=== PATIENT | female | born 1980 | race Caucasian/White ===

== ENCOUNTER 2017-09-19 19:31 | Emergency (ER) | payer OTHER, SELFPAY ==
[2017-09-19 19:54] VITALS: BP 117/77; PULSE 106; RESP 20; TEMP 37.7; O2SAT 99; BMI 35.6
[2017-09-19 20:02] LABS: UTC Influenza A Antigen Positive (Negative); UTC Influenza B Antigen Negative (Negative)
--- NOTE | 2017-09-19 21:05 | HMH.EDUTC ---
[facility] Dis[place] Clinical Impression: Influenza A Disposition: Home, Self-Care Condition on Discharge: Good Instructions: DI for Influenza -- Adult Additional Instructions: * Start Tamiflu today if you are going to take it. Discussed risks and possible benefits. * Lots of rest * Increase fluids, water, gatorade, powerade, pedialyte if /toddler/child * Monitor Temp. Tylenol every 4 hours as needed no more then 5 times a day or 4000mg in 24 hours and/or ibuprofen every 6 hours as needed no more then 3200mg in 24 hours (as long as your primary care doctor has told you that it is ok to take both) for fever/aches/pain. ER if fever no less than 101 despite tylenol and Ibuprofen * You (or your child) are contagious until no fever, aches, chills x 24 hours without medication for symptoms. * Coricidin HBP otc if other cold medications make your BP elevate Prescriptions: Oseltamivir Phosphate [Tamiflu 75mg Capsule] 75 mg PO BID #10 capsule Referrals: Viktor Gallego MD [Primary Care Provider] - (IMMEDIATELY for new or worsening symptoms, improvement followed by suddenly feeling worse OR no noticeable improvement over the next 48-72 hours. 911 for difficulty breathing ) Forms: Work/School Release Time of Disposition: 21:15 Medical Decision Making Vital Signs: 09/19/17 19:54 Temperature 99.9 F H Temperature Source Temporal Artery Scan Pulse Rate [Brachial] 106 H Respiratory Rate 20 Blood Pressure [Right Arm] 117/77 Blood Pressure Mean [Right Arm] 90 Blood Pressure Source [Right Arm] Automatic Cuff 02 Sat by Pulse Oximetry 99 Oxygen Delivery Method Room Air - Lab Data Lab Results 09/19/17 20:00: Influenza Type A Ag Positive A, Influenza Type B Ag Negative - Phil Inquiry Pt receiving controlled substance: No [facility] HPI - General Stated complaint: estrada,cough,body pain,fever Time Seen by Provider: 09/19/17 21:05 Mode of Arrival: Ambulatory Source of Information: Patient Limitations: No Limitations Description of Symptoms (Recalled from Triage Doc. by RN): ACHES, CHILLS, CONGESTION AND FEER HEENT Symptoms (Recalled from RN notes): Yes Resp Symptoms (Recalled from RN notes): Yes Skin Symptoms (Recalled from RN notes): No MS Symptoms (Recalled from RN notes): No Functional Status (Recalled from RN notes): NA - History of Present Illness Provider Complaint: c/o fever, aches, chills, cough, headache starting mid day yesterday and worse today. No known sick contacts. Has had flu vaccine. tylenol barely helping. hasn't taken or tried anything else. - Related Data Home Medications Medication Instructions Recorded Confirmed Estrogens, Conjugated [Premarin] 0.3 mg PO DAILY 09/19/17 09/19/17 Lisinopril [Lisinopril 10mg Tab] 10 mg PO DAILY 09/19/17 09/19/17 Lovastatin 10 mg PO DAILY 09/19/17 09/19/17 buPROPion HCl [Wellbutrin 100mg 50 mg PO BID 09/19/17 09/19/17 Tablet] Previous Rx's Medication Instructions Recorded Oseltamivir Phosphate [Tamiflu 75 mg PO BID #10 cap 09/19/17 75mg Capsule] Allergies Allergy/AdvReac Type Severity Reaction Status Date / Time No Known Allergies Allergy Verified 09/19/17 19:59 - Worker's Comp Is this a Worker's Comp case?: No [facility] History I have reviewed the patient's past medical history: Yes Medical History: Reports:: Hypertension Denies:: Chronic Obstructive Pulmonary Disease (COPD), Diabetes Mellitus Type 1, Diabetes Mellitus Type 2 Comment: depression Other Surgeries: Yes: Hysterectomy-Total - *Social History Alcohol Intake: never - Psychiatric History Expresses thoughts of harming self/others: None Suicide Plan Description: No Plan ROS Obtained: Yes Appropriate systems reviewed & no add complaints except as noted - Constitutional Reports anorexia, Reports body ache(s), Reports chills, Reports fever(s) - Eyes Denies discharge - ENT Reports nasal congestion, Reports nasal discharge, Reports post nasal drip, Reports sinus pre
--- NOTE | 2017-09-19 21:13 | ED_ITS ---
[facility] Disposition Clinical Impression: Influenza A Disposition: Home, Self-Care Condition on Discharge: Good Instructions: DI for Influenza -- Adult Additional Instructions: * Start Tamiflu today if you are going to take it. Discussed risks and possible benefits. * Lots of rest * Increase fluids, water, gatorade, powerade, pedialyte if /toddler/child * Monitor Temp. Tylenol every 4 hours as needed no more then 5 times a day or 4000mg in 24 hours and/or ibuprofen every 6 hours as needed no more then 3200mg in 24 hours (as long as your primary care doctor has told you that it is ok to take both) for fever/aches/pain. ER if fever no less than 101 despite tylenol and Ibuprofen * You (or your child) are contagious until no fever, aches, chills x 24 hours without medication for symptoms. * Coricidin HBP otc if other cold medications make your BP elevate Prescriptions: Oseltamivir Phosphate [Tamiflu 75mg Capsule] 75 mg PO BID #10 capsule Referrals: Viktor Gallego MD [Primary Care Provider] - (IMMEDIATELY for new or worsening symptoms, improvement followed by suddenly feeling worse OR no noticeable improvement over the next 48-72 hours. 911 for difficulty breathing * ) Forms: Work/School Release Time of Disposition: 21:15 Medical Decision Making Vital Signs: 09/19/17 19:54 Temperature 99.9 F H Temperature Source Temporal Artery Scan Pulse Rate [Brachial] 106 H Respiratory Rate 20 Blood Pressure [Right Arm] 117/77 Blood Pressure Mean [Right Arm] 90 Blood Pressure Source [Right Arm] Automatic Cuff 02 Sat by Pulse Oximetry 99 Oxygen Delivery Method Room Air - Lab Data Lab Results 09/19/17 20:00: Influenza Type A Ag Positive A, Influenza Type B Ag Negative - Phil Inquiry Pt receiving controlled substance: No [facility] HPI - General Stated complaint: estrada,cough,body pain,fever Time Seen by Provider: 09/19/17 21:05 Mode of Arrival: Ambulatory Source of Information: Patient Limitations: No Limitations Description of Symptoms (Recalled from Triage Doc. by RN): ACHES, CHILLS, CONGESTION AND FEER HEENT Symptoms (Recalled from RN notes): Yes Resp Symptoms (Recalled from RN notes): Yes Skin Symptoms (Recalled from RN notes): No MS Symptoms (Recalled from RN notes): No Functional Status (Recalled from RN notes): NA - History of Present Illness Provider Complaint: c/o fever, aches, chills, cough, headache starting mid day yesterday and worse today. No known sick contacts. Has had flu vaccine. tylenol barely helping. hasn't taken or tried anything else. - Related Data Home Medications Medication Instructions Recorded Confirmed Estrogens, Conjugated [Premarin] 0.3 mg PO DAILY 09/19/17 09/19/17 Lisinopril [Lisinopril 10mg Tab] 10 mg PO DAILY 09/19/17 09/19/17 Lovastatin 10 mg PO DAILY 09/19/17 09/19/17 buPROPion HCl [Wellbutrin 100mg 50 mg PO BID 09/19/17 09/19/17 Tablet] Previous Rx's Medication Instructions Recorded Oseltamivir Phosphate [Tamiflu 75 mg PO BID #10 cap 09/19/17 75mg Capsule] Allergies Allergy/AdvReac Type Severity Reaction Status Date / Time No Known Allergies Allergy Verified 09/19/17 19:59 - Worker's Comp Is this a Worker's Comp case?: No [facility] History I have reviewed the patient's past medical history: Yes Medical History: Reports:: Hypertension
== END 2017-09-19 21:17 | disposition home or self-care (01) ==
PROVIDERS: Emergency Provider Nurse Practitioner Family; Family Provider Emergency Medicine; PCP Emergency Medicine
DX: J10.1 Influenza due to other identified influenza virus with other respiratory manifestations (principal)
CPT/HCPCS: 87276; 87804; 99202

== ENCOUNTER → 2017-11-12 15:27 | Outpatient (REF) | payer OTHER, SELFPAY ==
[2017-11-12 19:29] LABS: Amphetamine/Metha Screen,Urine Negative ng/mL (<1000); Barbiturates Screen,Urine Negative ng/mL (<200); Benzodiazepines Screen,Urine Negative ng/mL (200); Cannabinoid Screen,Urine Negative ng/mL (<50); Cocaine Screen,Urine Negative ng/g (<300); Methadone Screen,Urine Negative ng/mL (<300); Opiate Screen,Urine Positive ng/mL (<300); Phencyclidine Screen,Urine Negative ng/mL (<25)
== END ==
LOC: LAB 15:27
PROVIDERS: Visit Provider Emergency Medicine
DX: Z79.899 Other long term (current) drug therapy (principal)
CPT/HCPCS: 80305

== ENCOUNTER → 2018-01-01 14:45 | Outpatient (CLI) | payer OTHER, SELFPAY ==
--- NOTE | 2018-01-01 14:48 | MR_ITS ---
MR cervical spine wo con, MR 3-d myelogram/MRCP HISTORY: Right-sided neck pain radiating into the shoulder and arm ORDERING PHYSICIAN: Viktor Gallego MD PATIENT AGE: 37 years COMPARISON: 01/21/2017 TECHNIQUE: Standard multiplanar multiecho sequences are performed without contrast. 3-D MIP and myelographic images are also rendered and reviewed FINDINGS: There is normal alignment. The craniocervical junction has an unremarkable appearance. C2-C3: Unremarkable. C3-C4: Unremarkable. C4-C5: Unremarkable. C5-C6: Minimal central disc protrusion versus prominent posterior longitudinal ligament without impingement unchanged. Minimal disc desiccation at that level. C6-C7: Degenerative disc disease with minimal bulging disc without impingement not significant change. C7-T1: Unremarkable No canal stenosis or herniated disc evident. IMPRESSION: 1. Overall no significant change from 01/21/2017. 2. Mild bulging disc with mild degenerative disc disease at C6-C7 with minimal central disc protrusion versus prominent posterior longitudinal ligament at C5-C6. 3. No disc herniation or canal stenosis
== END ==
LOC: RAD 14:46
PROVIDERS: Family Provider Emergency Medicine; PCP Emergency Medicine; Visit Provider Emergency Medicine
DX: M54.2 Cervicalgia (principal)
CPT/HCPCS: 72141; 76376

== ENCOUNTER → 2018-01-09 16:06 | Outpatient (CLI) | payer OTHER, SELFPAY ==
[2018-01-09 18:34] LABS: Amphetamine/Metha Screen,Urine Negative ng/mL (<1000); Barbiturates Screen,Urine Negative ng/mL (<200); Benzodiazepines Screen,Urine Negative ng/mL (200); Cannabinoid Screen,Urine Negative ng/mL (<50); Cocaine Screen,Urine Negative ng/g (<300); Methadone Screen,Urine Negative ng/mL (<300); Opiate Screen,Urine Negative ng/mL (<300); Phencyclidine Screen,Urine Negative ng/mL (<25)
== END ==
PROVIDERS: Visit Provider Emergency Medicine
DX: Z79.899 Other long term (current) drug therapy (principal)
CPT/HCPCS: 80305

== ENCOUNTER → 2018-02-04 10:32 | Outpatient (REF) | payer OTHER, SELFPAY ==
[2018-02-04 14:19] LABS: Basophils % 0.7 % (0.1-2.0); Eosinophils # 0.3 K/mm3 (0.0-0.4); Eosinophils % 4.8 % (0.1-12.0); Hematocrit 38.8 % (37.0-47.0); Hemoglobin 12.8 g/dL (12.2-16.2); Lymphocytes # 1.4 K/mm3 (0.7-4.5); Lymphocytes % 22.4 K/mm3 (10-50); Mean Corpuscular HGB Conc 33.1 g/dL (31.8-35.4); Mean Corpuscular Hemoglobin 28.2 pg (27.0-31.2); Mean Corpuscular Volume 85.2 fl (81-99); Monocytes # 0.3 K/mm3 (0.1-1.0); Monocytes % 4.2 % (1.7-9.3); Neutrophils # 4.3 K/mm3 (1.8-7.8); Neutrophils % 67.9 % (37.0-80.0); Platelet Count 336 K/mm3 (142-424); Red Blood Count 4.55 M/mm3 (4.20-5.40); Red Cell Distribution Width 13.4 % (11.5-17.5); White Blood Count 6.3 K/mm3 (4.8-10.8)
[2018-02-04 14:43] LABS: Alanine Aminotransferase 18 U/L (12-78); Albumin Level 3.9 gm/dL (3.4-5.0); Albumin/Globulin Ratio 1.2 (1.1-1.8); Alkaline Phosphatase 96 U/L (46-116); Aspartate Amino Transferase 13 U/L (15-37); Bilirubin,Total 0.2 mg/dL (0.2-1.0); Blood Urea Nitrogen 11 mg/dL (7-18); Calcium 9.9 mg/dL (8.5-10.1); Carbon Dioxide 27 mmol/L (21.0-32.0); Chloride 104 mmol/L (98-107); Chol/HDL Ratio 3.1 (1-3.5); Cholesterol 188 mg/dL (140-200); Creatinine,Serum 0.91 mg/dL (0.55-1.02); Estimated Glomerular Filt Rate 69 ml/min (>60); Free T4 (Free Thyroxine) 0.73 ng/dl (0.76-1.46); GFR (African American) 83 ML/MIN (>60); Globulin 3.2 gm/dl (1.3-3.2); Glucose 126 mg/dL (74-106); HDL Cholesterol 60 mg/dL (29-89); LDL Cholesterol 90 mg/dL (0-130); Sodium 141 mmol/L (136-145); Thyroid Stimulating Hormone 0.93 uIU/ml (0.358-3.740); Total Protein,Serum 7.1 gm/dL (6.4-8.2); Triglycerides 192 mg/dL (30-200); VLDL Cholesterol 38 mg/dL (0-40)
[2018-02-04 18:05] LABS: Amphetamine/Metha Screen,Urine Negative ng/mL (<1000); Barbiturates Screen,Urine Negative ng/mL (<200); Benzodiazepines Screen,Urine Negative ng/mL (200); Cannabinoid Screen,Urine Negative ng/mL (<50); Cocaine Screen,Urine Negative ng/g (<300); Methadone Screen,Urine Negative ng/mL (<300); Opiate Screen,Urine Positive ng/mL (<300); Phencyclidine Screen,Urine Negative ng/mL (<25)
[2018-02-06 20:11] LABS: Vitamin D 25 Hydroxy 24.7 ng/mL (30.0-100.0)
== END ==
LOC: LAB 10:32
PROVIDERS: Visit Provider Emergency Medicine
DX: E66.3 Overweight (principal); Z79.899 Other long term (current) drug therapy; M54.2 Cervicalgia
CPT/HCPCS: 80053; 80061; 80305; 82652; 84439; 84443; 85025

== ENCOUNTER → 2018-03-06 15:46 | Outpatient (CLI) | payer OTHER, SELFPAY ==
[2018-03-06 19:09] LABS: Amphetamine/Metha Screen,Urine Positive ng/mL (<1000); Barbiturates Screen,Urine Negative ng/mL (<200); Benzodiazepines Screen,Urine Negative ng/mL (200); Cannabinoid Screen,Urine Negative ng/mL (<50); Cocaine Screen,Urine Negative ng/g (<300); Methadone Screen,Urine Negative ng/mL (<300); Opiate Screen,Urine Positive ng/mL (<300); Phencyclidine Screen,Urine Negative ng/mL (<25)
== END ==
PROVIDERS: Visit Provider Emergency Medicine
DX: Z79.899 Other long term (current) drug therapy (principal)
CPT/HCPCS: 80305

== ENCOUNTER → 2018-04-03 15:32 | Outpatient (CLI) | payer OTHER, SELFPAY ==
[2018-04-03 20:01] LABS: Amphetamine/Metha Screen,Urine Negative ng/mL (<1000); Barbiturates Screen,Urine Negative ng/mL (<200); Benzodiazepines Screen,Urine Negative ng/mL (<200); Cannabinoid Screen,Urine Negative ng/mL (<50); Cocaine Screen,Urine Negative ng/mL (<300); Methadone Screen,Urine Negative ng/mL (<300); Opiate Screen,Urine Negative ng/mL (<300); Phencyclidine Screen,Urine Negative ng/mL (<25)
== END ==
LOC: LAB 15:32
PROVIDERS: Visit Provider Emergency Medicine
DX: Z79.899 Other long term (current) drug therapy (principal)
CPT/HCPCS: 80305

== ENCOUNTER → 2018-05-01 10:30 | Outpatient (REF) | payer OTHER, SELFPAY ==
[2018-05-01 14:38] LABS: Amphetamine/Metha Screen,Urine Negative ng/mL (<1000); Barbiturates Screen,Urine Negative ng/mL (<200); Benzodiazepines Screen,Urine Negative ng/mL (<200); Cannabinoid Screen,Urine Negative ng/mL (<50); Cocaine Screen,Urine Negative ng/mL (<300); Methadone Screen,Urine Negative ng/mL (<300); Opiate Screen,Urine Positive ng/mL (<300); Phencyclidine Screen,Urine Negative ng/mL (<25)
== END ==
LOC: LAB 10:30
PROVIDERS: Visit Provider Emergency Medicine
DX: Z79.899 Other long term (current) drug therapy (principal)
CPT/HCPCS: 80305

== ENCOUNTER → 2018-05-27 10:53 | Outpatient (REF) | payer OTHER, SELFPAY ==
[2018-05-27 13:54] LABS: Amphetamine/Metha Screen,Urine Negative ng/mL (<1000); Barbiturates Screen,Urine Negative ng/mL (<200); Benzodiazepines Screen,Urine Negative ng/mL (<200); Cannabinoid Screen,Urine Negative ng/mL (<50); Cocaine Screen,Urine Negative ng/mL (<300); Methadone Screen,Urine Negative ng/mL (<300); Opiate Screen,Urine Positive ng/mL (<300); Phencyclidine Screen,Urine Negative ng/mL (<25)
== END ==
LOC: LAB 10:53
PROVIDERS: Visit Provider Emergency Medicine
DX: Z79.899 Other long term (current) drug therapy (principal)
CPT/HCPCS: 80305

== ENCOUNTER → 2018-08-21 14:36 | Outpatient (CLI) | payer OTHER, SELFPAY ==
[2018-08-21 15:14] LABS: Amphetamine/Metha Screen,Urine Negative ng/mL (<1000); Barbiturates Screen,Urine Negative ng/mL (<200); Benzodiazepines Screen,Urine Negative ng/mL (<200); Cannabinoid Screen,Urine Negative ng/mL (<50); Cocaine Screen,Urine Negative ng/mL (<300); Methadone Screen,Urine Negative ng/mL (<300); Opiate Screen,Urine Positive ng/mL (<300); Phencyclidine Screen,Urine Negative ng/mL (<25)
== END ==
PROVIDERS: Visit Provider Nurse Practitioner Family
DX: Z79.899 Other long term (current) drug therapy (principal)
CPT/HCPCS: 80305

== ENCOUNTER → 2018-09-17 13:30 | Outpatient (CLI) | payer OTHER, SELFPAY ==
[2018-09-17 14:00] LABS: Amphetamine/Metha Screen,Urine Negative ng/mL (<1000); Barbiturates Screen,Urine Negative ng/mL (<200); Benzodiazepines Screen,Urine Negative ng/mL (<200); Cannabinoid Screen,Urine Negative ng/mL (<50); Cocaine Screen,Urine Negative ng/mL (<300); Methadone Screen,Urine Negative ng/mL (<300); Opiate Screen,Urine Negative ng/mL (<300); Phencyclidine Screen,Urine Negative ng/mL (<25)
[2018-09-24 17:40] LABS: Opiates Negative ng/mL (Cutoff=100)
== END ==
LOC: LAB.DROPOF 13:31
PROVIDERS: Visit Provider Emergency Medicine
DX: Z79.899 Other long term (current) drug therapy (principal)
CPT/HCPCS: 80305; 80361; G0480

== ENCOUNTER → 2018-10-20 11:07 | Outpatient (CLI) | payer OTHER, SELFPAY ==
--- NOTE | 2018-10-20 11:12 | XR_ITS ---
XR chest 2V HISTORY: Shortness of air ITS.REASON: SOA ORDERING PHYSICIAN: Isaak Gonzalez PATIENT AGE: 38 years COMPARISON: None FINDINGS: The cardiomediastinal silhouette and pulmonary vascularity are within normal limits. The lungs are clear without infiltrates, suspicious nodules, or pleural effusions. No acute bony abnormalities. IMPRESSION: Negative chest, no acute finding
== END ==
LOC: RAD 11:09
PROVIDERS: PCP Emergency Medicine; Visit Provider Nurse Practitioner Family
DX: J40 Bronchitis, not specified as acute or chronic (principal)
CPT/HCPCS: 71046

== ENCOUNTER → 2018-11-09 15:09 | Outpatient (CLI) | payer OTHER, SELFPAY ==
[2018-11-09 15:45] LABS: Basophils % 0.5 % (0.1-2.0); Eosinophils # 0.2 K/mm3 (0.0-0.4); Eosinophils % 2.3 % (0.1-12.0); Hematocrit 37.2 % (37.0-47.0); Hemoglobin 12.1 g/dL (12.2-16.2); Lymphocytes # 1.8 K/mm3 (0.7-4.5); Lymphocytes % 24.4 % (10-50); Mean Corpuscular HGB Conc 32.5 g/dL (31.8-35.4); Mean Corpuscular Volume 86.3 fl (81-99); Mean Platelet Volume 7.5 fl (7.4-10.4); Monocytes # 0.4 K/mm3 (0.1-1.0); Neutrophils # 4.9 K/mm3 (1.8-7.8); Neutrophils % 66.8 % (37.0-80.0); Platelet Count 345 K/mm3 (142-424); Red Blood Count 4.31 M/mm3 (4.20-5.40); Red Cell Distribution Width 14.2 % (11.5-17.5); White Blood Count 7.3 K/mm3 (4.8-10.8)
[2018-11-09 16:00] LABS: Amphetamine/Metha Screen,Urine Negative ng/mL (<1000); Barbiturates Screen,Urine Negative ng/mL (<200); Benzodiazepines Screen,Urine Positive ng/mL (<200); Cannabinoid Screen,Urine Negative ng/mL (<50); Cocaine Screen,Urine Negative ng/mL (<300); Methadone Screen,Urine Negative ng/mL (<300); Opiate Screen,Urine Positive ng/mL (<300); Phencyclidine Screen,Urine Negative ng/mL (<25)
[2018-11-09 16:01] LABS: Alanine Aminotransferase 22 U/L (12-78); Albumin Level 3.7 gm/dL (3.4-5.0); Albumin/Globulin Ratio 1.1 (1.1-1.8); Alkaline Phosphatase 91 U/L (46-116); Aspartate Amino Transferase 10 U/L (15-37); Bilirubin,Total 0.2 mg/dL (0.2-1.0); Blood Urea Nitrogen 9 mg/dL (7-18); Calcium 9.3 mg/dL (8.5-10.1); Carbon Dioxide 29 mmol/L (21.0-32.0); Chloride 102 mmol/L (98-107); Cholesterol 257 mg/dL (140-200); Creatinine,Serum 0.74 mg/dL (0.55-1.02); Estimated Glomerular Filt Rate 87 ml/min (>60); Free T4 (Free Thyroxine) 0.79 ng/dl (0.76-1.46); GFR (African American) 105 ML/MIN (>60); Globulin 3.4 gm/dl (1.3-3.2); Glucose 109 mg/dL (74-106); HDL Cholesterol 51 mg/dL (29-89); Sodium 140 mmol/L (136-145); Thyroid Stimulating Hormone 0.93 uIU/ml (0.358-3.740); Total Protein,Serum 7.1 gm/dL (6.4-8.2)
[2018-11-09 16:02] LABS: Triglycerides 406 mg/dL (30-200)
[2018-11-11 08:06] LABS: Vitamin D 25 Hydroxy 21.4 ng/mL (30.0-100.0)
== END ==
LOC: LAB.DROPOF 15:10
PROVIDERS: Visit Provider Emergency Medicine
DX: Z79.899 Other long term (current) drug therapy (principal); R53.83 Other fatigue; E66.3 Overweight; E55.9 Vitamin D deficiency, unspecified
CPT/HCPCS: 80053; 80061; 80305; 82533; 82652; 84439; 84443; 85025

== ENCOUNTER → 2019-01-05 15:18 | Outpatient (CLI) | payer OTHER, SELFPAY ==
[2019-01-05 16:03] LABS: Amphetamine/Metha Screen,Urine Negative ng/mL (<1000); Barbiturates Screen,Urine Negative ng/mL (<200); Benzodiazepines Screen,Urine Positive ng/mL (<200); Cannabinoid Screen,Urine Positive ng/mL (<50); Cocaine Screen,Urine Negative ng/mL (<300); Methadone Screen,Urine Negative ng/mL (<300); Opiate Screen,Urine Negative ng/mL (<300); Phencyclidine Screen,Urine Negative ng/mL (<25)
[2019-01-14 14:26] LABS: Alprazolam Positive (.); Benzodiazepines Positive ng/mL (Cutoff=100); Clonazepam Negative (Cutoff=100); Flurazepam Negative (Cutoff=100); Lorazepam Negative (Cutoff=100); Midazolam Negative (Cutoff=100); Temazepam Negative (Cutoff=100); Triazolam Negative (Cutoff=100)
[2019-01-15 08:00] LABS: Opiates Negative ng/mL (Cutoff=100)
== END ==
LOC: LAB.DROPOF 15:20
PROVIDERS: Visit Provider Emergency Medicine
DX: Z79.899 Other long term (current) drug therapy (principal); M54.2 Cervicalgia
CPT/HCPCS: 80305; 80346; 80361; G0480

== ENCOUNTER → 2019-03-05 12:33 | Outpatient (CLI) | payer OTHER, SELFPAY ==
[2019-03-05 14:45] LABS: Amphetamine/Metha Screen,Urine Negative ng/mL (<1000); Barbiturates Screen,Urine Negative ng/mL (<200); Benzodiazepines Screen,Urine Positive ng/mL (<200); Cannabinoid Screen,Urine Negative ng/mL (<50); Cocaine Screen,Urine Negative ng/mL (<300); Methadone Screen,Urine Negative ng/mL (<300); Opiate Screen,Urine Negative ng/mL (<300); Phencyclidine Screen,Urine Negative ng/mL (<25)
[2019-03-14 17:20] LABS: Alprazolam Positive (.); Benzodiazepines Positive ng/mL (Cutoff=100); Clonazepam Negative (Cutoff=100); Flurazepam Negative (Cutoff=100); Lorazepam Negative (Cutoff=100); Midazolam Negative (Cutoff=100); Oxycodone (GC/MS) 1932 ng/mL (Cutoff=100); Oxymorphone (GC/MS) 989 ng/mL (Cutoff=100); Temazepam Negative (Cutoff=100); Triazolam Negative (Cutoff=100)
[2019-03-15 03:26] LABS: Opiates Negative (Cutoff=100)
== END ==
LOC: LAB.DROPOF 12:34
PROVIDERS: Visit Provider Emergency Medicine
DX: Z79.899 Other long term (current) drug therapy (principal); M50.90 Cervical disc disorder, unspecified, unspecified cervical region
CPT/HCPCS: 80305; 80346; 80361; 80365; G0480

== ENCOUNTER → 2019-04-01 14:18 | Outpatient (CLI) | payer OTHER, SELFPAY ==
[2019-04-01 14:21] LABS: Microscopic, Urine URINE MICROSCOPIC (MICROSCOPIC)
[2019-04-01 14:41] LABS: Appearance,Urine CLOUDY (Clear); Bilirubin,Urine Negative (Negative); Blood, Urine Negative (Negative); Color,Urine YELLOW (Yellow); Glucose,Urine (UA) Negative (Negative); Ketones,Urine Negative (Negative); Leukocyte Esterase,Urine Negative (Negative); Nitrate,Urine Negative (Negative); Protein,Urine Negative (Negative); Specific Gravity, Urine 1.015 (1.005-1.030); Urobilinogen,Urine 0.2 EU/dl (0.2)
[2019-04-01 15:00] LABS: Bacteria,Urine 4+ /lpf; Squamous Epithelial Cell,Urine 20-50 #/hpf (0-5)
[2019-04-01 15:22] LABS: Anion Gap 13.1 mEq/L (5-15); Blood Urea Nitrogen 7 mg/dL (7-18); Calcium 9.1 mg/dL (8.5-10.1); Carbon Dioxide 27 mmol/L (21.0-32.0); Chloride 105 mmol/L (98-107); Creatine Kinase 128 U/L (26-192); Creatinine,Serum 0.88 mg/dL (0.55-1.02); Estimated Glomerular Filt Rate 71 ml/min (>60); GFR (African American) 86 ML/MIN (>60); Glucose 116 mg/dL (74-106); Potassium 4.1 mmoL/L (3.5-5.1); Sodium 141 mmol/L (136-145)
== END ==
PROVIDERS: Visit Provider Emergency Medicine
DX: R60.9 Edema, unspecified (principal)
CPT/HCPCS: 80048; 81001; 82550; 87086

== ENCOUNTER → 2019-04-28 13:49 | Outpatient (CLI) | payer OTHER, SELFPAY ==
[2019-04-28 15:33] LABS: Amphetamine/Metha Screen,Urine Negative ng/mL (<1000); Barbiturates Screen,Urine Negative ng/mL (<200); Benzodiazepines Screen,Urine Negative ng/mL (<200); Cannabinoid Screen,Urine Positive ng/mL (<50); Cocaine Screen,Urine Negative ng/mL (<300); Methadone Screen,Urine Negative ng/mL (<300); Opiate Screen,Urine Positive ng/mL (<300); Phencyclidine Screen,Urine Negative ng/mL (<25)
== END ==
PROVIDERS: Visit Provider Emergency Medicine
DX: Z79.899 Other long term (current) drug therapy (principal)
CPT/HCPCS: 80305

== ENCOUNTER → 2019-08-25 16:57 | Outpatient (CLI) | payer OTHER, SELFPAY ==
[2019-08-25 18:43] LABS: Amphetamine/Metha Screen,Urine Negative ng/mL (<1000); Barbiturates Screen,Urine Negative ng/mL (<200); Benzodiazepines Screen,Urine Negative ng/mL (<200); Cannabinoid Screen,Urine Negative ng/mL (<50); Cocaine Screen,Urine Negative ng/mL (<300); Methadone Screen,Urine Negative ng/mL (<300); Opiate Screen,Urine Negative ng/mL (<300); Phencyclidine Screen,Urine Negative ng/mL (<25)
[2019-09-01 13:16] LABS: Opiates Negative (Cutoff=100); Oxymorphone (GC/MS) 100 ng/mL (Cutoff=100)
== END ==
PROVIDERS: Visit Provider Emergency Medicine
DX: M54.2 Cervicalgia (principal)
CPT/HCPCS: 80305; 80361; 80365; G0480

== ENCOUNTER → 2019-09-01 14:55 | Outpatient (CLI) | payer OTHER, SELFPAY ==
--- NOTE | 2019-09-01 14:55 | US_ITS ---
PROCEDURE: US BREAST RT COMPLETE 09/01/2019 US BREAST LT COMPLETE from 09/01/2019 CLINICAL INDICATION: 6 mth f/u Right breast ultrasound: Six-month follow-up from [facility] study is only history given by technologist cc Left breast pain history today study initially reviewed by Dr. Fonseca COMPARISON: [facility] limited focused ultrasound both breast March 01, 2019 DMDB DIG MAMM-DX JEROMY from 04/07/2014 US BREAST LTD JEROMY from 03/01/2019 [facility] now natan chew FINDINGS: ===RIGHT BREAST ULTRASOUND, including axillary Survey No suspicious solid areas nor architectural distortion. 10 o'clock: Small 4.3 mm x 2.3 mm benign cyst central breast 12 o'clock: A small 5.7 mm benign cyst, can be followed. 2 o'clock-7.2 mm x 2.8 mm small Flat cyst. This is near the area previously described but does correlate with the questionable area in February. Nonspecific benign-appearing axillary lymph nodes. ===Left BREAST ULTRASOUND, including axillary Survey no cyst nor solid nodule is seen at the left breast.. No areas of concern with attention to the tender region at 1-2 o'clock position. Non-specific unremarkable axillary lymph nodes imaged Comparison is made to a [facility] ultrasound study from February 2019. At that time apparently was indeterminate area on prior ultrasound atat 2-3 o'clock seen which may have correlate with palpable area .. There is no report of a palpable area on today's history but rather breast pain most evident at 1-2 o'clock The previous indeterminate small area at 2-3 o'clock is not identified on today's study. Today's ultrasound appears to focused attention at the 1-2 o'clock position in the region of pain with no findings here today.. (I am not certain the staff was aware of this small indeterminate focus that was noted on the prior outside ultrasound study... And no mention of palpable area at 2-3 o'clock on today's ultrasound study.) IMPRESSION: Right breast ultrasound:. No areas of concern 3 small benign cyst largest measuring 5.7 mm at 12 o'clock position Left breast ultrasound. Unremarkable today no areas of concern No identified cyst nor solid nodule left breast on today's study In view of the now available [facility] images and history, would recommend a follow-up bilateral mammogram and left breast ultrasound in 4-6 months for ongoing evaluation.. BI-RAD Category: 3 Probably Benign Finding Short Term Follow-Up FOLLOW-UP: 4M-6 Month Follow-up Bilateral mammogram with left breast ultrasound 4-6 months Dictated by: Rik Xiong MD 09/16/2019 15:45 Electronically signed by Rik Xiong MD in [place] 09/16/2019 15:45
--- NOTE | 2019-09-01 14:55 | US_ITS ---
PROCEDURE: US BREAST RT COMPLETE 09/01/2019 US BREAST LT COMPLETE from 09/01/2019 CLINICAL INDICATION: 6 mth f/u Right breast ultrasound: Six-month follow-up from [facility] study is only history given by technologist cc Left breast pain history today study initially reviewed by Dr. Fonseca COMPARISON: [facility] limited focused ultrasound both breast March 01, 2019 DMDB DIG MAMM-DX JEROMY from 04/07/2014 US BREAST LTD JEROMY from 03/01/2019 [facility] now natan chew FINDINGS: ===RIGHT BREAST ULTRASOUND, including axillary Survey No suspicious solid areas nor architectural distortion. 10 o'clock: Small 4.3 mm x 2.3 mm benign cyst central breast 12 o'clock: A small 5.7 mm benign cyst, can be followed. 2 o'clock-7.2 mm x 2.8 mm small Flat cyst. This is near the area previously described but does correlate with the questionable area in February. Nonspecific benign-appearing axillary lymph nodes. ===Left BREAST ULTRASOUND, including axillary Survey no cyst nor solid nodule is seen at the left breast.. No areas of concern with attention to the tender region at 1-2 o'clock position. Non-specific unremarkable axillary lymph nodes imaged Comparison is made to a [facility] ultrasound study from February 2019. At that time apparently was indeterminate area on prior ultrasound atat 2-3 o'clock seen which may have correlate with palpable area .. There is no report of a palpable area on today's history but rather breast pain most evident at 1-2 o'clock The previous indeterminate small area at 2-3 o'clock is not identified on today's study. Today's ultrasound appears to focused attention at the 1-2 o'clock position in the region of pain with no findings here today.. (I am not certain the staff was aware of this small indeterminate focus that was noted on the prior outside ultrasound study... And no mention of palpable area at 2-3 o'clock on today's ultrasound study.) IMPRESSION: Right breast ultrasound:. No areas of concern 3 small benign cyst largest measuring 5.7 mm at 12 o'clock position Left breast ultrasound. Unremarkable today no areas of concern No identified cyst nor solid nodule left breast on today's study In view of the now available [facility] images and history, would recommend a follow-up bilateral mammogram and left breast ultrasound in 4-6 months for ongoing evaluation.. BI-RAD Category: 3 Probably Benign Finding Short Term Follow-Up FOLLOW-UP: 4M-6 Month Follow-up Bilateral mammogram with left breast ultrasound 4-6 months Dictated by: Rik Xiong MD 09/16/2019 15:45 Electronically signed by Rik Xiong MD in [place] 09/16/2019 15:45
== END ==
PROVIDERS: PCP Emergency Medicine; Visit Provider Emergency Medicine
DX: R92.8 Other abnormal and inconclusive findings on diagnostic imaging of breast (principal); N64.4 Mastodynia
CPT/HCPCS: 76641

== ENCOUNTER → 2019-10-19 18:23 | Outpatient (CLI) | payer OTHER, SELFPAY ==
[2019-10-19 19:34] LABS: Amphetamine/Metha Screen,Urine Negative ng/mL (<1000); Barbiturates Screen,Urine Negative ng/mL (<200); Benzodiazepines Screen,Urine Positive ng/mL (<200); Cannabinoid Screen,Urine Negative ng/mL (<50); Cocaine Screen,Urine Negative ng/mL (<300); Methadone Screen,Urine Negative ng/mL (<300); Opiate Screen,Urine Positive ng/mL (<300); Phencyclidine Screen,Urine Negative ng/mL (<25)
[2019-10-26 10:42] LABS: Alprazolam Positive (.); Benzodiazepines Positive ng/mL (Cutoff=100); Clonazepam Negative (Cutoff=100); Flurazepam Negative (Cutoff=100); Lorazepam Negative (Cutoff=100); Midazolam Negative (Cutoff=100); Temazepam Negative (Cutoff=100); Triazolam Negative (Cutoff=100)
== END ==
LOC: LAB.DROPOF 18:23
PROVIDERS: Visit Provider Emergency Medicine
DX: Z79.899 Other long term (current) drug therapy (principal)
CPT/HCPCS: 80305; 80346

== ENCOUNTER 2020-04-04 00:24 | Emergency (ER) | payer OTHER, SELFPAY ==
[2020-04-04 00:31] VITALS: BP 102/85; PULSE 100; RESP 18; TEMP 36.6; O2SAT 100; BMI 39.6
--- NOTE | 2020-04-04 00:47 | PC.NURSE ---
Spoke with Rylee Meza from Poison Control, she recommended treating the nausea and giving IV fluids and when the patient was calm enough and could tolerate that she was able to be discharged home. Rylee said we do not have keep her any certain time for observation.
--- NOTE | 2020-04-04 00:50 | HMH.EDALLER ---
ED Disposition Clinical Impression: Adverse reaction to drug Qualifiers: Encounter type: initial encounter Qualified Code(s): T50.905A - Adverse effect of unspecified drugs, medicaments and biological substances, initial encounter Disposition: Home, Self-Care Condition on Discharge: Good Instructions: DI for Adverse Drug Reaction -- Allergic Additional Instructions: see pcp for follow up Referrals: Viktor Gallego MD [Primary Care Provider] - - Critical Care Critical Care Time: No Attestation: On 04/04/20, the high probability of a clinically significant, sudden or life threatening deterioration of the following system(s) required my full and direct attention, intervention and personal management. The time I documented below is in addition to time spent performing reported procedures but includes the following listed in this critical care notation. Medical Decision Making - Medical Records Medical records reviewed: Yes: I reviewed the patient's medical records. - Phil Inquiry Pt receiving controlled substance: No Vital Signs: 04/04/20 00:31 04/04/20 00:51 04/04/20 01:38 Temperature 97.9 F Temperature Source Oral Pulse Rate [Right Brachial] 100 H 94 H 86 Respiratory Rate 18 18 Blood Pressure [Right Arm] 102/85 L 126/87 124/82 Blood Pressure Mean [Right Arm] 90 100 96 Blood Pressure Source [Right Arm] Automatic Cuff Manual Cuff/ Doppler Blood Pressure Position [Right Arm] Sitting Sitting 02 Sat by Pulse Oximetry 100 97 96 Oxygen Delivery Method Room Air Room Air Room Air - Lab Data Lab results reviewed: Yes: I reviewed the patient's lab results. Orders (Tests/Meds): ED MEDICATIONS Generic Name Dose Route Start Last Admin Trade Name Freq PRN Reason Stop Dose Admin Sodium Chloride 1,000 mls @ 999 mls/hr 04/04/20 01:00 04/04/20 00:57 Sod Chlor 0.9% 1000ml Bag IV 04/04/20 02:00 999 mls/hr .Q1H1M HAKEEM Administration Discontinued Medications Generic Name Dose Route Start Last Admin Trade Name Freq PRN Reason Stop Dose Admin Ondansetron HCl 4 mg 04/04/20 00:56 04/04/20 00:57 Zofran 4mg/2ml Vial IV 04/04/20 00:57 4 mg ONCE ONE Administration ORDERS Category Date Time Status CMP [Comprehensive Metabolic Panel] Stat Lab 04/04/20 00:25 Received Complete Blood Count Auto Diff Stat Lab 04/04/20 00:25 Received Allergic React/Insect Bite HPI - General Chief complaint: Allergic Reaction Stated complaint: Tremors;Vomiting Time Seen by Provider: 04/04/20 00:45 Mode of Arrival - ED Triage: Wheelchair Source of Information: Patient, Spouse, Medical Record Limitations: No Limitations - History of Present Illness HPI narrative: pt with possible reaction to otc herbal med complaint: allergic reaction Onset (ago): hour(s) Exposure: medication Treatment prior to arrival: none Allergies/Adverse Reactions: Allergies Allergy/AdvReac Type Severity Reaction Status Date / Time No Known Allergies Allergy Verified 04/04/20 00:50 Severity: moderate - Related Data Previous Rx's Medication Instructions Recorded ergocalciferol (vitamin D2) 1,250 50,000 unit PO QWEEK #14 cap 06/25/18 mcg (50,000 unit) capsule gabapentin 100 mg capsule 100 mg PO TID #90 cap 04/28/19 cholecalciferol (vitamin D3) 25 1,000 unit PO DAILY #90 cap 08/19/19 mcg (1,000 unit) capsule atorvastatin 20 mg tablet See Rx Instructions .ROUTE 11/29/19 .COMPLEX #90 tab bupropion HCl 100 mg tablet 100 mg PO BID #180 tab 01/24/20 lisinopril 10 mg tablet See Rx Instructions .ROUTE 01/24/20 .COMPLEX #90 tab cyclobenzaprine 10 mg tablet 10 mg PO TID PRN #60 tab 02/08/20 escitalopram oxalate 10 mg tablet 10 mg PO DAILY #30 tab 03/07/20 hydrocodone 5 mg-acetaminophen 325 1 tab PO BID PRN #30 tab 03/07/20 mg tablet hydroxyzine pamoate 50 mg capsule 50 mg PO TID PRN #60 cap 03/07/20 zolpidem 10 mg tablet 10 mg PO QHS PRN #30 tab 03/07/20 metformin 500 mg tablet 500 mg PO DAILY
[2020-04-04 00:51] VITALS: BP 126/87; PULSE 94; RESP 18; O2SAT 97
--- NOTE | 2020-04-04 00:54 | PC.NURSE ---
with patients permission, family was updated on patients condition.
[2020-04-04 01:38] VITALS: BP 124/82; PULSE 86; O2SAT 96
[2020-04-04 02:14] LABS: Alanine Aminotransferase 30 U/L (12-78); Albumin Level 4.8 g/dl (3.5-5.0); Albumin/Globulin Ratio 1.5 (1.1-1.8); Alkaline Phosphatase 118 U/L (38-126); Anion Gap 18.2 mEq/L (5-15); Aspartate Amino Transferase 35 U/L (14-36); Bilirubin,Total 0.4 mg/dl (0.2-1.3); Blood Urea Nitrogen 14 mg/dl (7-17); Calcium 9.5 mg/dl (8.4-10.2); Carbon Dioxide 26 mmol/L (22.0-30.0); Chloride 102 mmol/L (98-107); Creatinine Clearance Estimated 184 mL/min (50-200); Estimated Glomerular Filt Rate 110 ml/min (>60); GFR (African American) 133 ML/MIN (>60); Globulin 3.1 g/dL (1.3-3.2); Glucose 119 mg/dl (74-100); Potassium 3.2 mmoL/L (3.5-5.1); Sodium 143 mmol/L (136-145); Total Protein,Serum 7.9 g/dl (6.3-8.2)
--- NOTE | 2020-04-04 02:15 | PC.NURSE ---
with patient permission, pt family was updated again on patient condition
[2020-04-04 02:16] LABS: Basophils # 0.1 K/mm3 (0-0.2); Basophils % 0.8 % (0.1-2.0); Eosinophils # 0.4 K/mm3 (0.0-0.4); Lymphocytes # 3.2 K/mm3 (0.7-4.5); Lymphocytes % 36.1 % (10-50); Mean Corpuscular HGB Conc 33.2 g/dL (31.8-35.4); Mean Corpuscular Hemoglobin 29.2 pg (27.0-31.2); Mean Corpuscular Volume 87.8 fl (81-99); Mean Platelet Volume 7.7 fl (7.4-10.4); Monocytes # 0.5 K/mm3 (0.1-1.0); Monocytes % 5.5 % (1.7-9.3); Neutrophils # 4.8 K/mm3 (1.8-7.8); Neutrophils % 53.5 % (37.0-80.0); Platelet Count 364 K/mm3 (142-424); Red Blood Count 4.44 M/mm3 (4.20-5.40); Red Cell Distribution Width 13.3 % (11.5-17.5); White Blood Count 8.9 K/mm3 (4.8-10.8)
[2020-04-04 02:18] VITALS: BP 121/85; PULSE 93; RESP 15; TEMP 36.6; O2SAT 96
--- NOTE | 2020-04-04 02:19 | PC.NURSE ---
per MD request, pt was ambulated. Pt tolerated ambulation well.
== END 2020-04-04 02:24 | disposition home or self-care (01) ==
PROVIDERS: Emergency Provider Emergency Medicine; PCP Emergency Medicine
DX: G25.2 Other specified forms of tremor (principal); T50.3X5A Adverse effect of electrolytic, caloric and water-balance agents, initial encounter; Y92.019 Unspecified place in single-family (private) house as the place of occurrence of the external cause; I10 Essential (primary) hypertension; E11.9 Type 2 diabetes mellitus without complications; J45.909 Unspecified asthma, uncomplicated; F17.210 Nicotine dependence, cigarettes, uncomplicated; F33.1 Major depressive disorder, recurrent, moderate; Z90.09 Acquired absence of other part of head and neck; Z90.79 Acquired absence of other genital organ(s)
CPT/HCPCS: 80053; 85025; 96365; 96375; 99282; J2405

== ENCOUNTER → 2020-05-02 13:00 | Outpatient (CLI) | payer OTHER, SELFPAY ==
--- NOTE | 2020-05-02 13:01 | MM_ITS ---
PROCEDURE: MM DIG MAMM BI DX W/CAD Digital Breast Tomosynthesis Included CLINICAL INDICATION: 4-6 mth f/u There is a history of breast cancer patient's maternal aunt. The patient is currently on Premarin. COMPARISON: MG DMDBAV DIG MAMM-DX BILAT W/ADD VIEWS from 02/05/2012 MG DMDB DIG MAMM-DX JEROMY from 04/07/2014 TECHNIQUE: Standard CC and MLO images and 3D Tomosynthesis was obtained. R2 CAD reviewed. FINDINGS: Scattered fibroglandular densities are seen throughout both breast and the findings are bilateral and symmetrical. There are stable small nodular densities near the axillary tail of each breast likely low-lying nodes. There is no suspicious lesion in either breast and no suspicious microcalcifications. IMPRESSION: Fibrofatty parenchyma with no suspicious lesions seen BI-RAD Category: 1 Negative FOLLOW-UP: 1YR 1 Year Follow-up (A letter has been sent to the patient regarding results of the study.) Dictated by: Dr. Maximilian Styles MD 05/09/2020 12:07 Dr. Maximilian Styles MD in [place] 05/09/2020 12:07
--- NOTE | 2020-05-02 13:55 | MR_ITS ---
PROCEDURE: MR CERVICAL SPINE WO CON CLINICAL INDICATION: cervical disc disease NECK PAIN WORSE ON RT SIDE. PRIOR MR 01-01-18 COMPARISON: MR SPCERVWO MR cervical spine wo con from 01/01/2018 TECHNIQUE: Standard multiplanar multiecho sequences are performed without contrast. 3-D MIP and myelographic images are also rendered and reviewed FINDINGS: There is normal alignment. Craniocervical junction has an unremarkable appearance. C2-C3: Unremarkable. C3-C4: Mild left-sided foraminal narrowing from facet hypertrophic change. C4-C5: Unremarkable. C5-C6: Mild degenerative disc disease with minimal central disc protrusion slightly eccentric toward the right without impingement slightly larger compared to the previous exam. C6-C7: Mild degenerative disc disease with broad-based small central disc protrusion without impingement slightly more prominent compared to the previous exam. C7-T1: Unremarkable. IMPRESSION: 1. C3-C4: Mild left-sided foraminal narrowing from facet hypertrophic change. 2. C5-C6: Mild degenerative disc disease with minimal central disc protrusion slightly eccentric toward the right without impingement slightly larger compared to the previous exam. 3. C6-C7: Mild degenerative disc disease with broad-based small central disc protrusion without impingement slightly more prominent compared to the previous exam. 4. No extruded herniated disc or canal stenosis Dictated by: Ryan Fonseca MD 05/03/2020 11:30 Ryan Fonseca MD in [facility] 05/03/2020 11:30
== END ==
LOC: RAD 13:01
PROVIDERS: PCP Emergency Medicine; Visit Provider Emergency Medicine
DX: R92.8 Other abnormal and inconclusive findings on diagnostic imaging of breast (principal); M50.30 Other cervical disc degeneration, unspecified cervical region
CPT/HCPCS: 72141; 76376; 77062; 77066; G0279

== ENCOUNTER → 2020-11-29 14:01 | Outpatient (CLI) | payer OTHER, SELFPAY ==
[2020-11-29 14:18] LABS: Amphetamine/Metha Screen,Urine Negative ng/ml (<1000); Barbiturates Screen,Urine Negative ng/ml (<200)
[2020-11-29 14:19] LABS: Benzodiazepines Screen,Urine Positive ng/ml (<200)
[2020-11-29 14:20] LABS: Cannabinoid Screen,Urine Positive ng/ml (<50); Cocaine Screen,Urine Negative ng/ml (<300)
[2020-11-29 14:21] LABS: Methadone Screen,Urine Negative ng/ml (<300)
[2020-11-29 14:22] LABS: Opiate Screen,Urine Negative ng/ml (<300); Phencyclidine Screen,Urine Negative ng/ml (<25)
== END ==
LOC: LAB.DROPOF 14:01
PROVIDERS: Visit Provider Emergency Medicine
DX: Z79.899 Other long term (current) drug therapy (principal)
CPT/HCPCS: 80305

== ENCOUNTER 2020-11-30 23:38 | Emergency (ER) | payer OTHER, SELFPAY ==
[2020-11-30 23:53] VITALS: BP 114/84; PULSE 99; RESP 18; TEMP 37.2; O2SAT 97; BMI 37.8
--- NOTE | 2020-12-01 00:03 | CT_ITS ---
PROCEDURE: CT ABDOMEN PELVIS W CON CLINICAL INDICATION: LLQ pain wit N/V COMPARISON: No exams were available for comparison TECHNIQUE: IV Contrast: 75ML Isovue 370 Oral Contrast None Axial images obtained with sagittal and coronal reformats. All CT scans at the facility use one or more dose reduction, viz: automated exposure control, ma/kV adjustment per patient size (including targeted exams where dose is matched to indication, i.e. head), or iterative reconstruction technique. FINDINGS: LOWER THORAX: Unremarkable ABDOMEN & PELVIS: The liver, spleen, adrenal glands, have an unremarkable appearance. There is fatty infiltration of the pancreas. Gallbladder is distended. No renal or ureteral calculi. Right extrarenal pelvis. Nondistended fluid-filled loops of small bowel are noted throughout the abdomen. Fluid is also present within the ascending colon. Prior hysterectomy. No free air apparent. No evidence appendicitis or diverticulitis. No acute bony findings. IMPRESSION: Fluid filled large and small bowel loops which could represent enterocolitis Mildly distended gallbladder. Dictated by: Ryan Fonseca MD 12/01/2020 06:25 Ryan Fonseca MD in [place] 12/01/2020 06:25
[2020-12-01 00:12] LABS: Basophils % 0.3 % (0.1-2.0); Eosinophils # 0.3 K/mm3 (0.0-0.4); Eosinophils % 2.6 % (0.1-12.0); Hematocrit 41.7 % (37.0-47.0); Hemoglobin 13.6 g/dL (12.2-16.2); Lymphocytes # 0.8 K/mm3 (0.7-4.5); Lymphocytes % 6.7 % (10-50); Mean Corpuscular HGB Conc 32.6 g/dL (31.8-35.4); Mean Corpuscular Hemoglobin 27.6 pg (27.0-31.2); Mean Corpuscular Volume 84.6 fl (81-99); Mean Platelet Volume 6.8 fl (7.4-10.4); Monocytes # 0.3 K/mm3 (0.1-1.0); Monocytes % 2.9 % (1.7-9.3); Neutrophils % 87.5 % (37.0-80.0); Platelet Count 363 K/mm3 (142-424); Red Blood Count 4.93 M/mm3 (4.20-5.40); White Blood Count 11.4 K/mm3 (4.8-10.8)
[2020-12-01 00:15] LABS: MANUAL DIFFERENTIAL MANUAL DIFFERENTIAL (MANUAL DIFF)
[2020-12-01 00:21] LABS: Chloride 104 mmol/L (98-107); Potassium 4.3 mmoL/L (3.5-5.1); Sodium 140 mmol/L (136-145)
[2020-12-01 00:23] LABS: Amylase 46 U/L (30-110)
[2020-12-01 00:24] LABS: Alanine Aminotransferase 22 U/L (12-78); Albumin Level 4.9 g/dl (3.5-5.0); Albumin/Globulin Ratio 1.7 (1.1-1.8); Alkaline Phosphatase 110 U/L (38-126); Anion Gap 13.3 mEq/L (5-15); Aspartate Amino Transferase 33 U/L (14-36); Bilirubin,Total 0.5 mg/dl (0.2-1.3); Blood Urea Nitrogen 15 mg/dl (7-17); Calcium 9.7 mg/dl (8.4-10.2); Carbon Dioxide 27 mmol/L (22.0-30.0); Creatinine Clearance Estimated 175 mL/min (50-200); Estimated Glomerular Filt Rate 110 ml/min (>60); GFR (African American) 133 ML/MIN (>60); Globulin 2.9 g/dL (1.3-3.2); Glucose 136 mg/dl (74-100); Lipase 19 U/L (23-300); Total Protein,Serum 7.8 g/dl (6.3-8.2)
[2020-12-01 00:30] LABS: C-Reactive Protein 26.9 mg/L (0-4)
--- NOTE | 2020-12-01 01:03 | HMH.EDNVD ---
ED Disposition Clinical Impression: Gastroenteritis Disposition: Home, Self-Care Condition on Discharge: Good Instructions: DI for Vomiting -- Adult Additional Instructions: fluids and call pcp for follow up Prescriptions: ondansetron HCL [Zofran 4mg Tab] 4 mg PO TID #21 tab Transmission Status: Pending to [facility] Referrals: Viktor Gallego MD [Primary Care Provider] - - Critical Care Critical Care Time: No Attestation: On 11/30/20, the high probability of a clinically significant, sudden or life threatening deterioration of the following system(s) required my full and direct attention, intervention and personal management. The time I documented below is in addition to time spent performing reported procedures but includes the following listed in this critical care notation. Medical Decision Making - Medical Records Medical records reviewed: Yes: I reviewed the patient's medical records. - Phil Inquiry Pt receiving controlled substance: No Vital Signs: 11/30/20 23:53 12/01/20 01:13 12/01/20 01:15 Temperature 99.0 F Temperature Source Oral Pulse Rate 89 92 H Pulse Rate [Right] 99 H Respiratory Rate 18 Blood Pressure Blood Pressure [Right Arm] 114/84 Blood Pressure Mean [Right Arm] 94 Blood Pressure Source Blood Pressure Source [Right Arm] Automatic Cuff Blood Pressure Position [Right Arm] Supine 02 Sat by Pulse Oximetry 97 93 L 95 Oxygen Delivery Method Room Air 12/01/20 01:30 12/01/20 01:35 12/01/20 01:45 Temperature Temperature Source Pulse Rate 88 87 91 H Pulse Rate [Right] Respiratory Rate 20 Blood Pressure 110/64 110/64 Blood Pressure [Right Arm] Blood Pressure Mean [Right Arm] Blood Pressure Source Automatic Cuff Blood Pressure Source [Right Arm] Blood Pressure Position [Right Arm] 02 Sat by Pulse Oximetry 97 98 94 L Oxygen Delivery Method Room Air - Lab Data Lab results reviewed: Yes: I reviewed the patient's lab results. Lab Results 12/01/20 00:00: WBC 11.4 H, RBC 4.93, Hgb 13.6, Hct 41.7, MCV 84.6, MCH 27.6, MCHC 32.6, RDW 14.0, Plt Count 363, MPV 6.8 L, Neut % (Auto) 87.5 H, Lymph % (Auto) 6.7 L, [place] % (Auto) 2.9, Eos % (Auto) 2.6, Baso % (Auto) 0.3, Neut # (Auto) 10.0 H, Lymph # (Auto) 0.8, [place] # (Auto) 0.3, Eos # (Auto) 0.3, Baso # (Auto) 0.0, Total Counted 100, Neutrophils % (Manual) 80 H, Lymphocytes % (Manual) 12, Monocytes % (Manual) 4, Eosinophils % (Manual) 3, Basophils % (Manual) 1.0, Platelet Estimate Normal, RBC Morphology Not Reportable, Stomatocytes 1+, ESR 77 H 12/01/20 00:00: Sodium 140, Potassium 4.3, Chloride 104, Carbon Dioxide 27, Anion Gap 13.3, BUN 15, Creatinine 0.60, Estimated Creat Clear 175, Estimated GFR 110, Est GFR ( Amer) 133, Glucose 136 H, Calcium 9.7, Total Bilirubin 0.5, AST 33, ALT 22, Alkaline Phosphatase 110, C-Reactive Protein 26.9 H, Total Protein 7.8, Albumin 4.9, Globulin 2.9, Albumin/Globulin Ratio 1.7, Amylase 46, Lipase 19 L, Procalcitonin 0.124 Result diagrams: 12/01/20 00:00 12/01/20 00:00 Orders (Tests/Meds): ED MEDICATIONS Generic Name Dose Route Start Last Admin Trade Name Freq PRN Reason Stop Dose Admin Sodium Chloride 1,000 mls @ 999 mls/hr 12/01/20 00:15 12/01/20 00:07 Sod Chlor 0.9% 1000ml Bag IV 12/01/20 01:15 999 mls/hr .Q1H1M HAKEEM Administration Sodium Chloride 1,000 mls @ 999 mls/hr 12/01/20 01:30 12/01/20 01:30 Sod Chlor 0.9% 1000ml Bag IV 12/01/20 02:30 999 mls/hr .Q1H1M HAKEEM Administration Sodium Chloride 8 ml 12/01/20 01:26 Sodium Chloride 0.9% 10ml Vial IV 12/31/20 01:25 NEEDED PRN dilute pepcid Discontinued Medications Generic Name Dose Route Start Last Admin Trade Name Freq PRN Reason Stop Dose Admin Famotidine 20 mg 12/01/20 01:26 12/01/20 01:30 Famotidine 20mg/2ml Vial IV 12/01/20 01:27 20 mg ONCE ONE Administration Iopamidol 75 ml 12/01/20 01:23 12/01/20
[2020-12-01 01:13] VITALS: PULSE 89; O2SAT 93
[2020-12-01 01:15] VITALS: PULSE 92; O2SAT 95
[2020-12-01 01:19] LABS: Erythrocyte Sedimentation Rate 77 mm/hr (0-20)
[2020-12-01 01:21] LABS: Procalcitonin 0.124 ng/mL (0.0-2.0)
[2020-12-01 01:24] LABS: Eosinophils % 3 % (0-3); Lymphocytes % 12 % (10-50); Monocytes % 4 % (2-9); Neutrophils % 80 % (42-76); Platelet Estimate Normal; Stomatocytes 1+; Total Cells Counted 100
[2020-12-01 01:30] VITALS: BP 110/64; PULSE 88; O2SAT 97
[2020-12-01 01:35] VITALS: PULSE 87; O2SAT 98
[2020-12-01 01:45] VITALS: BP 110/64; PULSE 91; RESP 20; O2SAT 94
[2020-12-01 01:46] LABS: Adenovirus,PCR Not Detected (NotDetected); Bordetella Pertussis Not Detected (NotDetected); Chlamydophila Pneumoniae, PCR Not Detected (NotDetected); Coronavirus 19, PCR Not Detected (NotDetected); Coronavirus 229E Not Detected (NotDetected); Coronavirus NL63 Not Detected (NotDetected); Coronavirus OC43 Not Detected (NotDetected); Coronovirus HKU1,PCR Not Detected (NotDetected); Human Metapneumovirus Not Detected (NotDetected); Influenza A, PCR Not Detected (NotDetected); Influenza AH1, 2009 Not Detected (NotDetected); Influenza AH1, PCR Not Detected (NotDetected); Influenza AH3,PCR Not Detected (NotDetected); Influenza B, PCR Not Detected (NotDetected); Mycoplasma Pneumoniae, PCR Not Detected (NotDetected); Parainfluenza 1, PCR Not Detected (NotDetected); Parainfluenza 2, PCR Not Detected (NotDetected); Parainfluenza 3, PCR Not Detected (NotDetected); Parainfluenza 4, PCR Not Detected (NotDetected); Respiratory Syncytial Virus Not Detected (NotDetected); Rhinovirus/Enterovirus Not Detected (NotDetected)
[2020-12-01 02:27] VITALS: BP 122/66; PULSE 84; RESP 16; TEMP 37; O2SAT 98
== END 2020-12-01 02:32 | disposition home or self-care (01) ==
PROVIDERS: Emergency Provider Emergency Medicine; PCP Emergency Medicine
DX: K52.9 Noninfective gastroenteritis and colitis, unspecified (principal); I10 Essential (primary) hypertension; E78.5 Hyperlipidemia, unspecified; Z20.822 Contact with and (suspected) exposure to COVID-19; J45.909 Unspecified asthma, uncomplicated; Z79.899 Other long term (current) drug therapy; F33.1 Major depressive disorder, recurrent, moderate
CPT/HCPCS: 74177; 80053; 82150; 83690; 84145; 85007; 85025; 85651; 86140; 87581; 87633; 87798; 96365; 96366; 96375; 99283; J2405; Q9967

== ENCOUNTER → 2021-01-26 14:33 | Outpatient (CLI) | payer OTHER, SELFPAY ==
[2021-01-26 16:40] LABS: Amphetamine/Metha Screen,Urine Negative ng/ml (<1000); Barbiturates Screen,Urine Negative ng/ml (<200)
[2021-01-26 16:41] LABS: Benzodiazepines Screen,Urine Positive ng/ml (<200)
[2021-01-26 16:42] LABS: Cannabinoid Screen,Urine Positive ng/ml (<50)
[2021-01-26 16:43] LABS: Cocaine Screen,Urine Negative ng/ml (<300); Methadone Screen,Urine Negative ng/ml (<300)
[2021-01-26 16:44] LABS: Opiate Screen,Urine Negative ng/ml (<300)
[2021-01-26 16:45] LABS: Phencyclidine Screen,Urine Negative ng/ml (<25)
== END ==
LOC: LAB.DROPOF 14:33
PROVIDERS: Visit Provider Emergency Medicine
DX: Z79.899 Other long term (current) drug therapy (principal)
CPT/HCPCS: 80305

== ENCOUNTER 2021-02-04 23:46 | Observation (INO) | payer OTHER, SELFPAY ==
[2021-02-04 23:47] VITALS: BP 122/73; PULSE 84; RESP 19; TEMP 36.8; O2SAT 99; BMI 39.0
[2021-02-04 23:50] VITALS: BMI 39.0
--- NOTE | 2021-02-04 23:50 | ECG_ITS ---
APPROVED REPORT Exam: Resting ECG HR:91 bpm ECG Measurements Heart Rate 91 AXES WI 156 P 47 QRSd 76 QRS -7 QT 384 T 49 QTc 472 Conclusion Normal sinus rhythm Low voltage QRS Late r wave progression - unchanged from prior Abnormal ECG Electronically signed by : Giovanny Humphries, 02/10/2021 07:39:22
[2021-02-04 23:59] LABS: Basophils # 0.1 K/mm3 (0-0.2); Basophils % 0.6 % (0.1-2.0); Eosinophils # 0.4 K/mm3 (0.0-0.4); Eosinophils % 3.5 % (0.1-12.0); Hematocrit 39.5 % (37.0-47.0); Lymphocytes # 3.5 K/mm3 (0.7-4.5); Lymphocytes % 30.8 % (10-50); Mean Corpuscular HGB Conc 32.9 g/dL (31.8-35.4); Mean Corpuscular Hemoglobin 27.8 pg (27.0-31.2); Mean Corpuscular Volume 84.4 fl (81-99); Mean Platelet Volume 7.3 fl (7.4-10.4); Monocytes # 0.5 K/mm3 (0.1-1.0); Monocytes % 4.7 % (1.7-9.3); Neutrophils # 6.8 K/mm3 (1.8-7.8); Neutrophils % 60.3 % (37.0-80.0); Platelet Count 393 K/mm3 (142-424); Red Blood Count 4.68 M/mm3 (4.20-5.40); White Blood Count 11.3 K/mm3 (4.8-10.8)
[2021-02-05] VITALS (14 sets, daily range): BP systolic 87–122; BP diastolic 53–77; PULSE 70–90; RESP 14–20; TEMP 36.8–36.9; O2SAT 95–100; BMI 42.0
[2021-02-05] LABS: Chloride 100 mmol/L (98-107); Sodium 139 mmol/L (136-145)
[2021-02-05 00:01] LABS: Potassium 3.8 mmoL/L (3.5-5.1)
--- NOTE | 2021-02-05 00:01 | XR_ITS ---
PROCEDURE INFORMATION: Exam: XR Chest Exam date and time: 02/05/2021 12:01 AM Age: 40 years old Clinical indication: Cough and shortness of breath; Left-sided; Patient HX: Cough, left sided chest pain, SOA TECHNIQUE: Imaging protocol: XR of the chest. Views: 2 views. COMPARISON: CR XR CHEST 2V 05/30/2019 9:39 PM FINDINGS: Lungs: Unremarkable. No consolidation. Pleural spaces: Unremarkable. No pleural effusion. No pneumothorax. Heart/Mediastinum: Unremarkable. No cardiomegaly. Bones/joints: Unremarkable. IMPRESSION: No acute findings.
[2021-02-05 00:06] LABS: Anion Gap 12.8 mEq/L (5-15); Blood Urea Nitrogen 14 mg/dl (7-17); Calcium 8.9 mg/dl (8.4-10.2); Carbon Dioxide 30 mmol/L (22.0-30.0); Creatinine Clearance Estimated 175 mL/min (50-200); Estimated Glomerular Filt Rate 110 ml/min (>60); GFR (African American) 133 ML/MIN (>60); Glucose 104 mg/dl (74-100)
--- NOTE | 2021-02-05 00:10 | CT_ITS ---
PROCEDURE INFORMATION: Exam: CTA Chest With Contrast Exam date and time: 02/05/2021 12:10 AM Age: 40 years old Clinical indication: Cough and shortness of breath; Left-sided; Patient HX: SOA, cough, left sided chest pain, upper back pain; Additional info: SOA, cough, chest pain, upper back pain TECHNIQUE: Imaging protocol: Computed tomographic angiography of the chest with contrast. 3D rendering (Not supervised by radiologist): MIP and/or 3D reconstructed images were created by the technologist. Radiation optimization: All CT scans at this facility use at least one of these dose optimization techniques: automated exposure control; mA and/or kV adjustment per patient size (includes targeted exams where dose is matched to clinical indication); or iterative reconstruction. Contrast material: ISOVUE 370; Contrast volume: 70 ml; Contrast route: INTRAVENOUS (IV); COMPARISON: CR XR CHEST 2V 02/05/2021 12:11 AM FINDINGS: Pulmonary arteries: Normal. No pulmonary emboli. Aorta: Unremarkable. No aortic aneurysm. No aortic dissection. Lungs: 10 mm calcified nodule in the medial left upper lung. Multiple bilateral noncalcified lung nodules measuring up to 10 mm in the left lower lung. Pleural spaces: Unremarkable. No pneumothorax. No pleural effusion. Heart: Unremarkable. No cardiomegaly. No pericardial effusion. Lymph nodes: Enlarged left hilar nodes perineal Liver: Hypodense hepatic mass measures up to 2.2 x 1.7 cm. Bones/joints: Unremarkable. No acute fracture. Soft tissues: Unremarkable. IMPRESSION: 1. Bilateral, noncalcified lung nodules measuring up to 10 mm on the left. For patients at low risk (minimal or absent history of smoking and of other known risk factors), recommend CT Chest at 3-6 months, then consider CT Chest at 18-24 months. For patients at high risk (history of smoking or of other known risk factors), recommend CT Chest at 3-6 months, then CT Chest at 18-24 months. (Reference: Nhi) 2. Hypodense right hepatic lobe mass measuring up to 2.2 cm. REFERENCES: Nhi Matthews et al. Guidelines for Management of Incidental Pulmonary Nodules Detected on CT Images: From the Fleischner Society 2017. Radiology. 2017;284(1):228-243.
[2021-02-05 00:20] LABS: Strep Scrn Group A (Rapid) Negative (Negative)
[2021-02-05 00:22] LABS: Troponin I < 0.01 ng/ml (0.00-0.034)
[2021-02-05 00:24] LABS: Adenovirus,PCR Not Detected (NotDetected); Bordetella Pertussis Not Detected (NotDetected); Chlamydophila Pneumoniae, PCR Not Detected (NotDetected); Coronavirus 19, PCR Not Detected (NotDetected); Coronavirus 229E Not Detected (NotDetected); Coronavirus NL63 Not Detected (NotDetected); Coronavirus OC43 Not Detected (NotDetected); Coronovirus HKU1,PCR Not Detected (NotDetected); Human Metapneumovirus Not Detected (NotDetected); Influenza A, PCR Not Detected (NotDetected); Influenza AH1, 2009 Not Detected (NotDetected); Influenza AH1, PCR Not Detected (NotDetected); Influenza AH3,PCR Not Detected (NotDetected); Influenza B, PCR Not Detected (NotDetected); Mycoplasma Pneumoniae, PCR Not Detected (NotDetected); Parainfluenza 1, PCR Not Detected (NotDetected); Parainfluenza 2, PCR Not Detected (NotDetected); Parainfluenza 3, PCR Not Detected (NotDetected); Parainfluenza 4, PCR Not Detected (NotDetected); Respiratory Syncytial Virus Not Detected (NotDetected); Rhinovirus/Enterovirus Not Detected (NotDetected)
[2021-02-05 00:35] LABS: C-Reactive Protein 15.7 mg/L (0-4)
--- NOTE | 2021-02-05 00:35 | PC.NURSE ---
patient to radiology
[2021-02-05 00:38] LABS: Erythrocyte Sedimentation Rate 20 mm/hr (0-20)
--- NOTE | 2021-02-05 00:47 | HMH.EDCP ---
ED Disposition Clinical Impression: Chest pain Qualifiers: Chest pain type: precordial pain Qualified Code(s): R07.2 - Precordial pain Obesity Qualifiers: Obesity type: due to excess calories Obesity classification: adult class 2 (BMI 35 - 39.9) Serious obesity comorbidity presence: with serious comorbidity Body mass index: BMI 39.0-39.9 Qualified Code(s): E66.01 - Morbid (severe) obesity due to excess calories; Z68.39 - Body mass index [BMI] 39.0-39.9, adult Disposition: Admitted as Observation Condition on Discharge: Good - Critical Care Critical Care Time: No Attestation: On 02/04/21, the high probability of a clinically significant, sudden or life threatening deterioration of the following system(s) required my full and direct attention, intervention and personal management. The time I documented below is in addition to time spent performing reported procedures but includes the following listed in this critical care notation. Medical Decision Making - Medical Records Medical records reviewed: Yes: I reviewed the patient's medical records. - Phil Inquiry Pt receiving controlled substance: No Vital Signs: 02/04/21 23:47 02/05/21 00:06 02/05/21 00:17 Temperature 98.2 F Temperature Source Oral Pulse Rate 82 76 Pulse Rate [Right] 84 Respiratory Rate 19 18 Blood Pressure 122/73 Blood Pressure [Right Arm] 122/73 Blood Pressure Mean 94 Blood Pressure Mean [Right Arm] 89 Blood Pressure Source 02 Sat by Pulse Oximetry 99 99 Oxygen Delivery Method Room Air Room Air 02/05/21 00:40 02/05/21 01:03 02/05/21 01:31 Temperature Temperature Source Pulse Rate 86 80 Pulse Rate [Right] Respiratory Rate 14 20 Blood Pressure 95/69 L 96/58 L 93/60 L Blood Pressure [Right Arm] Blood Pressure Mean 77 71 Blood Pressure Mean [Right Arm] Blood Pressure Source Manual Cuff/ Auscultation 02 Sat by Pulse Oximetry 95 97 Oxygen Delivery Method Room Air Room Air 02/05/21 02:17 02/05/21 02:30 02/05/21 03:00 Temperature Temperature Source Pulse Rate Pulse Rate [Right] Respiratory Rate 17 Blood Pressure 95/57 L 87/53 L 100/53 L Blood Pressure [Right Arm] Blood Pressure Mean 64 65 Blood Pressure Mean [Right Arm] Blood Pressure Source 02 Sat by Pulse Oximetry Oxygen Delivery Method - Lab Data Lab results reviewed: Yes: I reviewed the patient's lab results. Lab Results 02/04/21 23:48: WBC 11.3 H, RBC 4.68, Hgb 13.0, Hct 39.5, MCV 84.4, MCH 27.8, MCHC 32.9, RDW 14.0, Plt Count 393, MPV 7.3 L, Neut % (Auto) 60.3, Lymph % (Auto) 30.8, [place] % (Auto) 4.7, Eos % (Auto) 3.5, Baso % (Auto) 0.6, Neut # (Auto) 6.8, Lymph # (Auto) 3.5, [place] # (Auto) 0.5, Eos # (Auto) 0.4, Baso # (Auto) 0.1 02/04/21 23:48: Sodium 139, Potassium 3.8, Chloride 100, Carbon Dioxide 30, Anion Gap 12.8, BUN 14, Creatinine 0.60, Estimated Creat Clear 175, Estimated GFR 110, Est GFR ( Amer) 133, Glucose 104 H, Calcium 8.9, Troponin I < 0.01 02/04/21 23:55: Chlamy pneumoniae PCR Not detected, Adenovirus (PCR) Not detected, B. pertussis DNA (PCR) Not detected, Coronavirus OC43 (PCR) Not detected, Coronavirus HKU1 (PCR) Not detected, Coronavirus 229E (PCR) Not detected, SARS-CoV-2 (PCR) Not detected, Coronavirus NL63 (PCR) Not detected, Human Metapneumovir PCR Not detected, Influenza A (H1) PCR Not detected, Influ A (H1N1/09) PCR Not detected, Influenza A (H3) PCR Not detected, Influenza Type A (PCR) Not detected, Influenza Type B (PCR) Not detected, M. pneumoniae (PCR) Not detected, Parainfluenza 1 (PCR) Not detected, Parainfluenza 2 (PCR) Not detected, Parainfluenza 3 (PCR) Not detected, Parainfluenza 4 (PCR) Not detected, RSV (PCR) Not detected, Entero/Rhino (PCR) Not detected 02/04/21 23:55: Group A Strep Rapid Negative 02/05/21 00:00: ESR 20 02/05/21 00:00: C-Reactive Protein 15.7 H, Procalcitonin 0.202 Result diagrams: 02/04/21 23:48 02/04/21 23:48 Orders (Tests/Meds): ED
[2021-02-05 01:17] LABS: Procalcitonin 0.202 ng/mL (0.0-2.0)
[2021-02-05 03:40] LABS: Troponin I < 0.01 ng/ml (0.00-0.034)
--- NOTE | 2021-02-05 04:53 | PC.NURSE ---
pt arrived to floor via wheelchair
[2021-02-05 06:22] LABS: Chol/HDL Ratio 2.9 (1-3.5); Cholesterol 153 mg/dl (140-200); HDL Cholesterol 52 mg/dl (40-60); Magnesium 1.8 mg/dl (1.6-2.3); Triglycerides 81 mg/dl (30-150); VLDL Cholesterol 16 mg/dL (0-40)
[2021-02-05 06:32] LABS: Direct LDL Cholesterol 75.86 mg/dL (100-129)
[2021-02-05 06:43] LABS: Troponin I < 0.01 ng/ml (0.00-0.034)
--- NOTE | 2021-02-05 07:47 | P.CONPHA_ITS ---
[facility] Pharm[facility] VTE Monitoring - Patient Demographics Admission date: 02/05/21 Report Date: 02/05/21 Time: 07:47 Allergies/Adverse Reactions: Patient Allergies No Known Allergies Allergy (Verified 01/26/21 11:15) Height: 1.55 m Weight: 100.896 kg Patient Problems: Current Active Problems Chest pain (Acute) Obesity (Acute) - VTE Risk Labs: VTE Related Lab Results Hgb 13.0 g/dL (12.2-16.2) 02/04/21 23:48 Hct 39.5 % (37.0-47.0) 02/04/21 23:48 Plt Count 393 K/mm3 (142-424) 02/04/21 23:48 BUN 14 mg/dl (7-17) 02/04/21 23:48 Creatinine 0.60 mg/dl (0.52-1.04) 02/04/21 23:48 Estimated Creat Clear 175 mL/min (50-200) 02/04/21 23:48 Was VTE Risk Assessment Performed: Yes VTE Score: 4 VTE Risk Level: Low Risk - Prophylaxis VTE Prophylaxis Ordered?: Yes Types of VTE Prophylaxis: TEDS Knee High Location of Applied Device: Bilateral Lower Extremeties
--- NOTE | 2021-02-05 08:00 | CA_ITS ---
APPROVED REPORT EXAM: Comprehensive 2D, Doppler, and color-flow Echocardiogram [employer] Representative: Yuki Clark, SISSY, RVS Ht: 5 ft 0 in Wt: 200lbs BSA: 1.87 BP: 100/53 mmHg Indications: CP, anxiety, asthma, smoker,obesity 2D Dimensions Aortic Root 2.37 cm LA Volume 65.40 mL Left Atrium 3.70 cm LA Volume Index 35.00 mL/m2 (M/F) 16-34 LVOT 1.87 cm (M/F) 1.5-2.5 M-Mode Dimensions RVDd 2.81 cm (0.9-2.6) LA Diam 4.07 cm (1.9-4.0) LVDd 3.95 cm (3.5-5.7) Ao Diam 3.09 cm (2.0-3.7) LVDs 2.62 cm (3.5-5.7) IVSd 0.90 cm (0.6-1.1) PWd 0.84 cm (0.6-1.1) EF (Teich) 67.10% EPSs 0.27 cm FS 36.90% EDV (Teich) 76.40 mL TAPSE 2.69 (<1.7) ESV (Teich) 25.10 mL LV Diastology E Decel Time 177.00 (160-240 msec) E/A Ratio 1.78 MED E' 8.50 (< 7 cm/sec) MED A' 7.00 cm/s E'/MED E' Ratio 13.75 (>14) LAT E' 14.20 (<10 cm/sec) LAT A' 7.80 cm/s E/LAT E' Ratio 8.23 (>14) Pulm Vein s 38.00 cm/sec Aortic Valve LVOT Max 124.00 (70-110 cm/s) LVOT VTI 26.54 cm AoV Peak Jairo. 156.00 (50-130 cm/s) AO Peak GR. 9.80 mmHg AO Mean GR. 5.50 (<5 mmHg) AO VTI 35.36 (18-25 cm) DANIEL (VTI) 2.06 (2.5-4.5 cm2) Mitral Valve MV A Velocity 66.00 (40-130 cm/s) E/A Ratio 1.78 MV Decel. Time 177.00 (160-240 ms) Pulmonary Valve PV Peak Velocity 91.00 (50-150 cm/s) Tricuspid Valve TR P. Velocity 221.00 cm/s RAP Estimate 10.00 mmHg RVSP 29.60 mmHg Left Ventricle Technically difficult study because of the patient factors and poor acoustic windows. Left atrium is mildly enlarged, left ventricle is normal size, there is no concentric left ventricular hypertrophy, visually estimated ejection fraction 55% with no regional wall motion abnormality, diastolic parameters are within normal range. Right Ventricle Right atrium and right ventricle qualitatively mildly enlarged with normal contractility. Aortic Valve Aortic valve is grossly normal, there is no aortic stenosis or aortic insufficiency. Mitral Valve Mitral valve grossly normal, there is trace mitral regurgitation. Tricuspid Valve Tricuspid valve grossly normal, there is trace tricuspid regurgitation, tricuspid regurgitation jet velocity is inadequate for calculation of the right ventricular systolic pressure. Pulmonic Valve Pulmonic valve is poorly visualized. Great Vessels Aortic root is normal size. Pericardium No significant pericardial effusion noted. Conclusion 1. Mild biatrial enlargement, normal left ventricular size, visually estimated ejection fraction 55% with no regional wall motion abnormality, diastolic parameters are within normal range. 2. Mildly enlarged right ventricle with normal contractility. 3. Trace mitral and tricuspid regurgitation. 4. No significant pericardial effusion noted. Electronically signed by : Walter Armas, 02/06/2021 05:46:14
--- NOTE | 2021-02-05 08:41 | HMH.PHAINT ---
MEDICATION RECONCILIATION COMPLETED ON PATIENT USING EXTERNAL FILL HISTORY FROM PHARMACY. -ORTIZ SORIANO, ADITID
--- NOTE | 2021-02-05 09:54 | CA_ITS ---
APPROVED REPORT Exam: Exercise Treadmill Technologist: Kristan Carpenter, Stress Nurse: SINUS RHYTHM WITH RBBB Ht: 5 ft 0 in Wt: 226 lbs BSA: 1.97 m2 HR: 85 bpm BP: 115/73 mmHg Medical History Medical History: HTN Medications: Metoprolol,,,,, Metformin,,,,, Hydrocodone,,,,, Escitalopram,,,,, Zolpidem,,,,, Nitroglycerin,,,,, AtorvaASTATIN,,,,, CHOLECALCIFEROL,,,,, Ergocalciferol,,,,, Lisinopri/HCTZ,,,,, EstroGENS,,,,, Cardiac Risk Factors: HTN, Smoking, FHX of CAD Stress Test Details Test: Sarai HR Resting HR: 79 bpm Max Heart Rate (APMHR): 178.514126 bpm Max HR Achieved: 170 bpm Target HR (85% APMHR): 151.971012 bpm % of APMHR: 95.51 Recovery HR: 90 bpm BP Resting BP: 115/73 mmHg Max BP: 173/89 mmHg Recovery BP: 136.0/75.0 mmHg ECG Resting ECG: SINUS RHYTHM WITH RBBB Clinical Exercise duration: 07:51 min Highest Stage Achieved: Exercise capacity: 10.1 METs Stress ECG Conclusion SARAI PROTOCOL COMPLETED. EXCERCISED 07:51. METS=10.1. MAX HR 170. MAX BP 173/89. STOPPED TEST DUE TO SHORTNESS OF BREATH. PT HAD CHEST PAIN AND BECAME SOB AT PEAK EXCERCISE. RESOLVED IN RECOVERY. OCCASIONAL PVC. ARTIFACT WITH LEADS VS LESS THAN 1.[address] IMAGES TO FOLLOW. Test Summary REST 04:27 0.0 0.0 79 . 115/ 73 . . Stage 1 01:00 10.0 1.7 120 . . . . Stage 1 02:00 10.0 1.7 113 . . . . Stage 1 03:00 10.0 1.7 116 . 100/ 60 . . Stage 2 01:00 12.0 2.5 128 . . . . Stage 2 02:00 12.0 2.5 136 . . . . Stage 2 03:00 12.0 2.5 136 . 110/ 55 . . Stage 3 . . . . . . . Cardiolite injected Stage 3 01:00 14.0 3.4 152 . . . . Stage 3 01:51 14.0 3.4 144 . 120/ 60 . Stop exercise at 07:51 RECOVERY 01:00 0.0 0.0 135 . 120/ 65 . . RECOVERY 02:00 0.0 0.0 115 . 120/ 65 . . RECOVERY 03:00 0.0 0.0 100 . 173/ 89 . . RECOVERY 04:00 0.0 0.0 95 . 156/ 77 . . RECOVERY 05:00 0.0 0.0 93 . 156/ 77 . . RECOVERY 05:25 0.0 0.0 93 . 136/ 75 . . Electronically signed by : Walter Armas, 02/06/2021 06:02:19
--- NOTE | 2021-02-05 09:54 | NM_ITS ---
APPROVED REPORT Exam: Nuclear Stress Test Indication: HTN, HYPERLIPIDEMIA, TOB USE, FM HX., C.P., SOB Patient Location: Inpatient Stress Tech: Kristan Carpenter [place] Tech:Farzanamauricio Andino, ARRT, RT (R)(N) Ht: 5 ft 1 in Wt: 200 lbs Bra Size: 42DD HR: 85 bpm BP: 115/73 mmHg BSA: 1.89 m2 BMI: 37.7 History: HTN, HYPERLIPIDEMIA, TOB USE, FM HX., C.P., SOB Procedure: Patient exercised on Jared protocol 7:51 minutes and sec, resting heart rate 85 bpm, resting blood pressure 115/73 mmHg, with exercise maximum heart rate achived was 170 bpm which is 96 % of the maximum predicted heart rate and blood pressure was 173/89 mmHg. Test was stopped due to SOB. Patient denied any complaint of chest pain. Patient has exercise capacity, achieved 10.1 METs of workload on treadmill, the blood pressure response to exercise was . Cardiac Stress and Resting SPECT Images: Cardiac Stress and Resting SPECT images were obtained using technetium 99m Myoview 30.7 mCi stress and 9.99 mCi at rest. EF is normal at 75% with no wall mtion abnormalities. No fixed or reversible defects Conclusion: No evidence of ischemia or infarction with normal EF of 75% Electronically signed by : Ryan Fonseca MD 02/05/2021 16:11:19
--- NOTE | 2021-02-05 10:00 | HMH.CNCARD ---
History of Present Illness Consult date: 02/05/21 Requesting physician: Viktor Gallego Consult reason: chest pain Chief complaint: chest pain History of present illness: 40-year-old female presented to [facility] ED with left-sided chest pain radiating to the left shoulder blade last p.m. Patient stated the chest pain began when she was trying to sleep. The chest pain became worse and felt that she needed to come to the emergency room. Patient was then admitted and consulted for cardiology services. Patient states the left-sided chest pain radiating to the left shoulder blade has improved since being admitted. Patient states her job is very demanding and is very stressful. Patient denies any cardiac history. Patient does complain of shortness of breath with exertion. Patient states she has had a chest cough and a sore throat for the past few days. Throat noted with lesions in the back. Patient does have a history of tobacco use in which she smokes 3 to 5 cigarettes/day. Denies any alcohol or illegal substance abuse intake. Patient denies swelling of the lower extremities. Patient denies palpitations or dizziness. Patient does have history of hypertension and hyperlipidemia, which she is currently on medications for. This is managed per PCP. No significant family history of CAD. CT of the chest revealed bilateral noncalcified 10 mm lobe on the left lobe. This is being managed per PCP. 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 Initial ED work-up was performed. Serial troponins were negative. EKG noted sinus rhythm with a heart rate of 91 bpm. cryogenic transport driver reveals sinus rhythm with a heart rate of 88 bpm. Preliminary echocardiogram reveals EF greater than 60% with mild MR and TR noted. Awaiting official echo results. Discussed plan of care with Dr. Jones. We will set patient up for a GXT Myoview today to rule out ischemia. Discussed plan of care with patient patient is agreeable. Pending on the results of the echocardiogram and the GXT Myoview, medication and therapy changes may be recommended. Thank you for allowing cardiology to participate in the care of this patient. [facility] History I have reviewed the patient's past medical history: Yes Medical History: Reports:: Asthma, Depression, Hyperlipidemia, Hypertension Denies:: Cancer, Chronic Obstructive Pulmonary Disease (COPD), Diabetes Mellitus Type 1, Diabetes Mellitus Type 2, MRSA *Have you ever received a pneumonia vaccine?: No *Have you received a flu vaccine this season?: No Other Medical History: Reports: Other Laterality Cases: Bilateral: Tonsillectomy Other Surgeries: Yes: Hysterectomy-Total Amputation: No Fractures: No - *Social History Last grade of school completed: Advanced degree Smoking Status: Current some day smoker Tobacco Type: cigarettes # Packs/Day (cigarettes): 3 Alcohol Intake: never Substance Use Type: denies use *Occupational Status:: employed Housing: house Household Members: family *Travel in the last 8 weeks: Inside the [facility] - Psychiatric History Pschychiatric History:: Reports:: Depression Family Hx:: Cancer Meds Home Medications Medication Instructions Recorded Confirmed Type Atorvastatin Calcium [Lipitor 20mg 20 mg PO DAILY 12/01/20 02/05/21 History Tab] Cholecalciferol (Vitamin D3) 1,000 unit PO DAILY 12/01/20 02/05/21 History [Vitamin D3 1,000 Unit Cap] hydrocodone 5 mg-acetaminophen 325 1 tab PO BID PRN #60 tab 01/26/21 02/05/21 Rx mg tablet nitroglycerin 0.4 mg sublingual 0.4 mg SUBLINGUAL Q5M PRN #30 tab 01/26/21 02/05/21 Rx tablet Ergocalciferol (Vitamin D2) 1,250 mcg PO WEEKLY 02/05/21 02/05/21 History [Drisdol] Escitalopram Oxalate 10 mg PO DAILY 02/05/21 02/05/21 History Estrogens, Conjugated [Premarin] 0.3 mg PO DAILY 02/05/21 02/05/21 History Metformin HCl [Glucophage] 500 mg PO DAILY 02/05/21 02/05/21
--- NOTE | 2021-02-05 16:01 | PC.NURSE ---
Pt requesting to go outside, reviewed policy w/ pt. She states she normally smokes and just wants to go outside for 3 minutes , pt offered nicotine patch in which she stated ew, no i don't do those . Message left w/ Jael @ Dr. Gallego's office.
--- NOTE | 2021-02-05 17:07 | HMH.HPDC ---
General - General Admission date:: 02/05/21 Discharge date: 02/05/21 *Admission Date: 02/05/21 *Chief complaint: chest pain *History of present illness: 40-year-old female presented to [facility] ED with left-sided chest pain radiating to the left shoulder blade last night,Patient does complain of shortness of breath with exertion Patient stated the chest pain began when she was trying to sleep and woke her up. The chest pain became worse and felt that she needed to come to the emergency room. Patient states the left-sided chest pain radiating to the left shoulder blade has improved since being admitted. pt admitted for cardiac work up with cardiology consult. [facility] History I have reviewed the patient's past medical history: Yes Medical History: Reports:: Asthma, Depression, Hyperlipidemia, Hypertension Denies:: Cancer, Chronic Obstructive Pulmonary Disease (COPD), Diabetes Mellitus Type 1, Diabetes Mellitus Type 2, MRSA *Have you ever received a pneumonia vaccine?: No *Have you received a flu vaccine this season?: No Other Medical History: Reports: Other Laterality Cases: Bilateral: Tonsillectomy Other Surgeries: Yes: Hysterectomy-Total Amputation: No Fractures: No - *Social History Last grade of school completed: Advanced degree Smoking Status: Current some day smoker Tobacco Type: cigarettes # Packs/Day (cigarettes): 3 Alcohol Intake: never Substance Use Type: denies use *Occupational Status:: employed Housing: house Household Members: family *Travel in the last 8 weeks: Inside the [place] - Psychiatric History Pschychiatric History:: Reports:: Depression Family Hx:: Cancer Review of Systems - Review of Systems Review of systems:: pertinent systems reviewed and negative unless documented below - Constitutional Denies chills - Eyes Denies change in vision, Denies pain - ENT Denies mouth lesions - *Cardiovascular Reports chest pain, Reports chest pain at rest, Reports chest pain with activity, Reports shortness of breath with activity, Denies shortness of breath causing sudden awakening - *Respiratory Reports shortness of breath - *Gastrointestinal Denies abdominal pain - *Genitourinary Denies abnormal vaginal bleeding, Denies vaginal itching - *Musculoskeletal Denies deformity - Integumentary/Breasts Denies yellowing of the skin - *Neurologic Denies seizure-like activity, Denies sensory deficit - Psychiatric Denies anxiety, Denies panic attacks - Endocrine Denies rapid, pounding, or irregular heartbeat - Hematologic/Lymphatic Denies other - Allergic/Immunologic Denies seasonal runny nose Exam Vital signs and Labs for Last 24 Hours: Temp Pulse Resp BP Pulse Ox 98.3 F 90 18 112/71 100 02/05/21 16:00 02/05/21 16:00 02/05/21 16:00 02/05/21 16:00 02/05/21 16:00 Laboratory Results - last 24 hr 02/04/21 23:48: WBC 11.3 H, RBC 4.68, Hgb 13.0, Hct 39.5, MCV 84.4, MCH 27.8, MCHC 32.9, RDW 14.0, Plt Count 393, MPV 7.3 L, Neut % (Auto) 60.3, Lymph % (Auto) 30.8, Dent % (Auto) 4.7, Eos % (Auto) 3.5, Baso % (Auto) 0.6, Neut # (Auto) 6.8, Lymph # (Auto) 3.5, Dent # (Auto) 0.5, Eos # (Auto) 0.4, Baso # (Auto) 0.1 02/04/21 23:48: Sodium 139, Potassium 3.8, Chloride 100, Carbon Dioxide 30, Anion Gap 12.8, BUN 14, Creatinine 0.60, Estimated Creat Clear 175, Estimated GFR 110, Est GFR ( Amer) 133, Glucose 104 H, Calcium 8.9, Troponin I < 0.01 02/04/21 23:55: Chlamy pneumoniae PCR Not detected, Adenovirus (PCR) Not detected, B. pertussis DNA (PCR) Not detected, Coronavirus OC43 (PCR) Not detected, Coronavirus HKU1 (PCR) Not detected, Coronavirus 229E (PCR) Not detected, SARS-CoV-2 (PCR) Not detected, Coronavirus NL63 (PCR) Not detected, Human Metapneumovir PCR Not detected, Influenza A (H1) PCR Not detected, Influ A (H1N1/09) PCR Not detected, Influenza A (H3) PCR Not detected, Influenza Type A (PCR) Not detected, Influenza Type B (PCR) Not detected, M. pn
== END 2021-02-05 18:05 | disposition home or self-care (01) ==
LOC: ER 02-05 00:08 → 2ND 02-05 04:35
PROVIDERS: Admitting Provider Emergency Medicine; Emergency Provider Emergency Medicine; PCP Emergency Medicine; Visit Provider Emergency Medicine
DX: R07.9 Chest pain, unspecified (principal); I10 Essential (primary) hypertension; F32.9 Major depressive disorder, single episode, unspecified; Z86.14 Personal history of Methicillin resistant Staphylococcus aureus infection; F17.210 Nicotine dependence, cigarettes, uncomplicated; Z71.6 Tobacco abuse counseling; E66.01 Morbid (severe) obesity due to excess calories; Z68.41 Body mass index [BMI] 40.0-44.9, adult; I08.1 Rheumatic disorders of both mitral and tricuspid valves; J45.909 Unspecified asthma, uncomplicated
CPT/HCPCS: 71046; 71275; 78452; 80048; 80061; 83735; 84145; 84484; 85025; 85651; 86140; 87430; 87581; 87633; 87798; 93005; 93017; 93306; 96365; 96375; 99284; A9502; G0378; J2405; Q9967

== ENCOUNTER → 2021-03-30 13:37 | Outpatient (CLI) | payer OTHER, SELFPAY ==
[2021-03-30 14:08] LABS: Phencyclidine Screen,Urine Negative ng/ml (<25)
[2021-03-30 14:15] LABS: Amphetamine/Metha Screen,Urine Negative ng/ml (<1000)
[2021-03-30 14:18] LABS: Barbiturates Screen,Urine Negative ng/ml (<200); Cannabinoid Screen,Urine Negative ng/ml (<50)
[2021-03-30 14:19] LABS: Benzodiazepines Screen,Urine Positive ng/ml (<200)
[2021-03-30 14:20] LABS: Methadone Screen,Urine Negative ng/ml (<300); Opiate Screen,Urine Negative ng/ml (<300)
[2021-03-30 14:21] LABS: Cocaine Screen,Urine Negative ng/ml (<300)
== END ==
LOC: LAB.DROPOF 13:37
PROVIDERS: Visit Provider Emergency Medicine
DX: Z79.899 Other long term (current) drug therapy (principal)
CPT/HCPCS: 80305

== ENCOUNTER → 2021-05-28 18:34 | Outpatient (CLI) | payer OTHER, SELFPAY | PROVIDERS: Visit Provider Nurse Practitioner Family | DX: N39.0 Urinary tract infection, site not specified (principal) | CPT/HCPCS: 87086; 87088; 87186 ==

== ENCOUNTER → 2021-06-28 14:02 | Outpatient (CLI) | payer OTHER, SELFPAY ==
[2021-06-28 14:13] LABS: Basophils # 0.1 K/mm3 (0-0.2); Basophils % 0.8 % (0.1-2.0); Eosinophils # 0.3 K/mm3 (0.0-0.4); Eosinophils % 4.1 % (0.1-12.0); Hematocrit 41.5 % (37.0-47.0); Hemoglobin 13.3 g/dL (12.2-16.2); Lymphocytes # 2.2 K/mm3 (0.7-4.5); Lymphocytes % 30.2 % (10-50); Mean Corpuscular Hemoglobin 29.4 pg (27.0-31.2); Mean Corpuscular Volume 91.9 fl (81-99); Mean Platelet Volume 8.8 fl (7.4-10.4); Monocytes # 0.4 K/mm3 (0.1-1.0); Monocytes % 5.1 % (1.7-9.3); Neutrophils # 4.3 K/mm3 (1.8-7.8); Neutrophils % 59.9 % (37.0-80.0); Platelet Count 348 K/mm3 (142-424); Red Blood Count 4.51 M/mm3 (4.20-5.40); Red Cell Distribution Width 14.2 % (11.5-17.5); White Blood Count 7.2 K/mm3 (4.8-10.8)
[2021-06-28 14:38] LABS: Alanine Aminotransferase 11 U/L (12-78); Albumin/Globulin Ratio 1.4 (1.1-1.8); Alkaline Phosphatase 76 U/L (38-126); Anion Gap 9.9 mEq/L (5-15); Aspartate Amino Transferase 23 U/L (14-36); Bilirubin,Total 0.2 mg/dl (0.2-1.3); Blood Urea Nitrogen 12 mg/dl (7-17); Calcium 9.8 mg/dl (8.4-10.2); Carbon Dioxide 31 mmol/L (22.0-30.0); Chloride 103 mmol/L (98-107); Chol/HDL Ratio 3.6 (1-3.5); Cholesterol 228 mg/dl (140-200); Estimated Glomerular Filt Rate 109 ml/min (>60); GFR (African American) 132 ML/MIN (>60); Globulin 2.8 g/dL (1.3-3.2); Glucose 95 mg/dl (74-100); HDL Cholesterol 64 mg/dl (40-60); Potassium 4.9 mmoL/L (3.5-5.1); Sodium 139 mmol/L (136-145); Total Protein,Serum 6.8 g/dl (6.3-8.2); Triglycerides 331 mg/dl (30-150); VLDL Cholesterol 66 mg/dL (0-40)
[2021-06-28 14:42] LABS: Amphetamine/Metha Screen,Urine Negative ng/ml (<1000)
[2021-06-28 14:44] LABS: Barbiturates Screen,Urine Negative ng/ml (<200); Benzodiazepines Screen,Urine Positive ng/ml (<200)
[2021-06-28 14:45] LABS: Cannabinoid Screen,Urine Negative ng/ml (<50)
[2021-06-28 14:46] LABS: Cocaine Screen,Urine Negative ng/ml (<300); Methadone Screen,Urine Negative ng/ml (<300)
[2021-06-28 14:47] LABS: Opiate Screen,Urine Positive ng/ml (<300); Phencyclidine Screen,Urine Negative ng/ml (<25)
[2021-06-28 14:49] LABS: Direct LDL Cholesterol 101.98 mg/dL (100-129)
[2021-06-28 14:56] LABS: 25-OH Vitamin D, Total 31.5 ng/mL (30-100); T4 (Thyroxine) 5.8 ug/dl (5.53-11.0)
== END ==
PROVIDERS: Visit Provider Nurse Practitioner Family
DX: I10 Essential (primary) hypertension (principal); Z79.899 Other long term (current) drug therapy; E66.9 Obesity, unspecified; Z68.41 Body mass index [BMI] 40.0-44.9, adult
CPT/HCPCS: 80053; 80061; 80305; 82306; 84436; 84443; 85025

== ENCOUNTER → 2021-09-21 13:34 | Outpatient (CLI) | payer OTHER, SELFPAY ==
[2021-09-21 14:41] LABS: Barbiturates Screen,Urine Negative ng/ml (<200)
[2021-09-21 14:42] LABS: Benzodiazepines Screen,Urine Positive ng/ml (<200); Cannabinoid Screen,Urine Negative ng/ml (<50)
[2021-09-21 14:44] LABS: Cocaine Screen,Urine Negative ng/ml (<300)
[2021-09-21 14:45] LABS: Methadone Screen,Urine Negative ng/ml (<300); Opiate Screen,Urine Negative ng/ml (<300)
[2021-09-21 14:47] LABS: Phencyclidine Screen,Urine Negative ng/ml (<25)
[2021-09-21 14:52] LABS: Amphetamine/Metha Screen,Urine Negative ng/ml (<1000)
== END ==
LOC: LAB.DROPOF 13:34
PROVIDERS: Visit Provider Emergency Medicine
DX: Z79.899 Other long term (current) drug therapy (principal)
CPT/HCPCS: 80305

== ENCOUNTER → 2021-11-16 09:07 | Outpatient (CLI) | payer OTHER, SELFPAY ==
[2021-11-16 17:52] LABS: Amphetamine/Metha Screen,Urine Negative ng/ml (<1000)
[2021-11-16 17:53] LABS: Barbiturates Screen,Urine Negative ng/ml (<200)
[2021-11-16 17:54] LABS: Benzodiazepines Screen,Urine Positive ng/ml (<200); Cannabinoid Screen,Urine Negative ng/ml (<50)
[2021-11-16 17:55] LABS: Cocaine Screen,Urine Negative ng/ml (<300); Methadone Screen,Urine Negative ng/ml (<300)
[2021-11-16 17:56] LABS: Opiate Screen,Urine Positive ng/ml (<300)
[2021-11-16 17:57] LABS: Phencyclidine Screen,Urine Negative ng/ml (<25)
== END ==
LOC: LAB.DROPOF 11-27 23:48
PROVIDERS: Visit Provider Emergency Medicine
DX: Z79.899 Other long term (current) drug therapy (principal)
CPT/HCPCS: 80305

== ENCOUNTER → 2022-05-13 06:10 | Outpatient (CLI) | payer OTHER, SELFPAY ==
[2022-05-13 20:07] LABS: Barbiturates Screen,Urine Negative ng/ml (<200)
[2022-05-13 20:08] LABS: Benzodiazepines Screen,Urine Negative ng/ml (<200)
[2022-05-13 20:09] LABS: Amphetamine/Metha Screen,Urine Negative ng/ml (<1000); Cannabinoid Screen,Urine Negative ng/ml (<50)
[2022-05-13 20:10] LABS: Cocaine Screen,Urine Negative ng/ml (<300); Methadone Screen,Urine Negative ng/ml (<300)
[2022-05-13 20:11] LABS: Opiate Screen,Urine Positive ng/ml (<300)
[2022-05-13 20:12] LABS: Phencyclidine Screen,Urine Negative ng/ml (<25)
== END ==
LOC: LAB.DROPOF 05-14 06:11
PROVIDERS: PCP Emergency Medicine; Visit Provider Emergency Medicine
DX: Z79.899 Other long term (current) drug therapy (principal)
CPT/HCPCS: 80305

== ENCOUNTER → 2022-05-31 14:48 | Outpatient (CLI) | payer OTHER, SELFPAY | PROVIDERS: PCP Emergency Medicine; Visit Provider Emergency Medicine | DX: U07.1 COVID-19 (principal) | CPT/HCPCS: C9803; U0003; U0005 ==

== ENCOUNTER → 2022-07-09 11:00 | Outpatient (CLI) | payer OTHER, SELFPAY ==
[2022-07-09 14:16] LABS: Basophils # 0.1 K/mm3 (0-0.2); Basophils % 0.9 % (0.1-2.0); Eosinophils # 0.1 K/mm3 (0.0-0.4); Eosinophils % 2.3 % (0.1-12.0); Hematocrit 41.1 % (37.0-47.0); Hemoglobin 13.2 g/dL (12.2-16.2); Lymphocytes # 1.6 K/mm3 (0.7-4.5); Lymphocytes % 28.1 % (10-50); Mean Corpuscular Hemoglobin 29.2 pg (27.0-31.2); Mean Corpuscular Volume 91.4 fl (81-99); Monocytes # 0.3 K/mm3 (0.1-1.0); Neutrophils # 3.7 K/mm3 (1.8-7.8); Neutrophils % 63.7 % (37.0-80.0); Platelet Count 331 K/mm3 (142-424); Red Cell Distribution Width 13.6 % (11.5-17.5); White Blood Count 5.8 K/mm3 (4.8-10.8)
[2022-07-09 14:34] LABS: Alanine Aminotransferase 17 U/L (12-78); Albumin Level 4.3 g/dl (3.5-5.0); Albumin/Globulin Ratio 1.7 (1.1-1.8); Alkaline Phosphatase 90 U/L (38-126); Amylase 41 U/L (30-110); Anion Gap 14.2 mEq/L (5-15); Aspartate Amino Transferase 29 U/L (14-36); Bilirubin,Total 0.4 mg/dl (0.2-1.3); Blood Urea Nitrogen 12 mg/dl (7-17); Calcium 9.1 mg/dl (8.4-10.2); Carbon Dioxide 30 mmol/L (22.0-30.0); Chloride 99 mmol/L (98-107); Estimated Glomerular Filt Rate 109 ml/min (>60); GFR (African American) 131 ML/MIN (>60); Globulin 2.6 g/dL (1.3-3.2); Glucose 110 mg/dl (74-100); Lipase 25 U/L (23-300); Potassium 4.2 mmoL/L (3.5-5.1); Sodium 139 mmol/L (136-145); Total Protein,Serum 6.9 g/dl (6.3-8.2)
== END ==
LOC: LAB.DROPOF 15:39
PROVIDERS: PCP Emergency Medicine; Visit Provider Emergency Medicine
DX: R10.11 Right upper quadrant pain (principal); R11.0 Nausea; E66.3 Overweight; Z68.41 Body mass index [BMI] 40.0-44.9, adult
CPT/HCPCS: 80053; 82150; 83690; 85025

== ENCOUNTER → 2022-09-06 10:21 | Outpatient (CLI) | payer OTHER, SELFPAY ==
[2022-09-06 14:08] LABS: Amphetamine/Metha Screen,Urine Negative ng/ml (<1000)
[2022-09-06 14:09] LABS: Barbiturates Screen,Urine Negative ng/ml (<200)
[2022-09-06 14:10] LABS: Benzodiazepines Screen,Urine Positive ng/ml (<200); Cannabinoid Screen,Urine Negative ng/ml (<50)
[2022-09-06 14:11] LABS: Cocaine Screen,Urine Negative ng/ml (<300)
[2022-09-06 14:12] LABS: Methadone Screen,Urine Negative ng/ml (<300); Opiate Screen,Urine Negative ng/ml (<300)
[2022-09-06 14:13] LABS: Phencyclidine Screen,Urine Negative ng/ml (<25)
== END ==
PROVIDERS: PCP Emergency Medicine; Visit Provider Emergency Medicine
DX: Z79.899 Other long term (current) drug therapy (principal)
CPT/HCPCS: 80305

== ENCOUNTER → 2022-11-05 23:33 | Outpatient (CLI) | payer OTHER, SELFPAY ==
[2022-11-05 20:10] LABS: Amphetamine/Metha Screen,Urine Negative ng/ml (<1000); Barbiturates Screen,Urine Negative ng/ml (<200)
[2022-11-05 20:11] LABS: Benzodiazepines Screen,Urine Negative ng/ml (<200)
[2022-11-05 20:12] LABS: Cannabinoid Screen,Urine Negative ng/ml (<50); Cocaine Screen,Urine Negative ng/ml (<300)
[2022-11-05 20:13] LABS: Methadone Screen,Urine Negative ng/ml (<300)
[2022-11-05 20:14] LABS: Opiate Screen,Urine Negative ng/ml (<300); Phencyclidine Screen,Urine Negative ng/ml (<25)
== END ==
LOC: LAB.DROPOF 23:34
PROVIDERS: PCP Emergency Medicine; Visit Provider Emergency Medicine
DX: Z79.899 Other long term (current) drug therapy (principal)
CPT/HCPCS: 80305

== ENCOUNTER → 2022-12-31 10:22 | Outpatient (CLI) | payer OTHER, SELFPAY ==
[2022-12-31 14:08] LABS: Amphetamine/Metha Screen,Urine Negative ng/ml (<1000)
[2022-12-31 14:09] LABS: Barbiturates Screen,Urine Negative ng/ml (<200); Benzodiazepines Screen,Urine Positive ng/ml (<200)
[2022-12-31 14:10] LABS: Cannabinoid Screen,Urine Negative ng/ml (<50)
[2022-12-31 14:11] LABS: Cocaine Screen,Urine Negative ng/ml (<300); Methadone Screen,Urine Negative ng/ml (<300)
[2022-12-31 14:12] LABS: Opiate Screen,Urine Negative ng/ml (<300); Phencyclidine Screen,Urine Negative ng/ml (<25)
== END ==
LOC: LAB.DROPOF 14:01
PROVIDERS: PCP Emergency Medicine; Visit Provider Emergency Medicine
DX: M50.30 Other cervical disc degeneration, unspecified cervical region (principal)
CPT/HCPCS: 80305

== ENCOUNTER → 2023-02-28 12:59 | Outpatient (CLI) | payer OTHER, SELFPAY ==
[2023-02-28 13:18] LABS: Amphetamine/Metha Screen,Urine Negative ng/ml (<1000); Barbiturates Screen,Urine Negative ng/ml (<200)
[2023-02-28 13:19] LABS: Benzodiazepines Screen,Urine Positive ng/ml (<200)
[2023-02-28 13:20] LABS: Cannabinoid Screen,Urine Negative ng/ml (<50); Cocaine Screen,Urine Negative ng/ml (<300)
[2023-02-28 13:21] LABS: Methadone Screen,Urine Negative ng/ml (<300); Opiate Screen,Urine Positive ng/ml (<300)
[2023-02-28 13:23] LABS: Phencyclidine Screen,Urine Negative ng/ml (<25)
== END ==
LOC: LAB.DROPOF 12:59
PROVIDERS: PCP Emergency Medicine; Visit Provider Emergency Medicine
DX: Z79.899 Other long term (current) drug therapy (principal)
CPT/HCPCS: 80305

== ENCOUNTER → 2023-04-03 12:58 | Outpatient (CLI) | payer OTHER, SELFPAY ==
[2023-04-03 14:09] LABS: Alanine Aminotransferase 19 U/L (12-78); Albumin Level 4.3 g/dl (3.5-5.0); Albumin/Globulin Ratio 1.8 (1.1-1.8); Alkaline Phosphatase 68 U/L (38-126); Aspartate Amino Transferase 30 U/L (14-36); Bilirubin,Total 0.2 mg/dl (0.2-1.3); Blood Urea Nitrogen 11 mg/dl (7-17); Calcium 8.8 mg/dl (8.4-10.2); Carbon Dioxide 33 mmol/L (22.0-30.0); Chloride 102 mmol/L (98-107); Chol/HDL Ratio 2.3 (1-3.5); Cholesterol 192 mg/dl (140-200); Estimated Glomerular Filt Rate 90 ml/min (>60); GFR (African American) 109 ML/MIN (>60); Globulin 2.4 g/dL (1.3-3.2); Glucose 130 mg/dl (74-100); HDL Cholesterol 84 mg/dl (40-60); Sodium 140 mmol/L (136-145); Total Protein,Serum 6.7 g/dl (6.3-8.2); Triglycerides 298 mg/dl (30-150); VLDL Cholesterol 60 mg/dL (0-40)
[2023-04-03 14:20] LABS: Direct LDL Cholesterol 74.95 mg/dL (100-129)
[2023-04-03 14:40] LABS: Thyroid Stimulating Hormone 1.08 uIU/mL (0.465-4.68)
[2023-04-03 16:34] LABS: Basophils % 0.7 % (0.1-2.0); Eosinophils # 0.3 K/mm3 (0.0-0.4); Eosinophils % 5.6 % (0.1-12.0); Hematocrit 38.2 % (37.0-47.0); Lymphocytes # 1.5 K/mm3 (0.7-4.5); Lymphocytes % 29.2 % (10-50); Mean Corpuscular HGB Conc 31.4 g/dL (31.8-35.4); Mean Corpuscular Hemoglobin 28.7 pg (27.0-31.2); Mean Corpuscular Volume 91.3 fl (81-99); Mean Platelet Volume 7.7 fl (7.4-10.4); Monocytes # 0.3 K/mm3 (0.1-1.0); Monocytes % 5.8 % (1.7-9.3); Neutrophils # 3.1 K/mm3 (1.8-7.8); Neutrophils % 58.7 % (37.0-80.0); Platelet Count 289 K/mm3 (142-424); Red Blood Count 4.19 M/mm3 (4.20-5.40); Red Cell Distribution Width 13.7 % (11.5-17.5); White Blood Count 5.3 K/mm3 (4.8-10.8)
[2023-04-03 16:49] LABS: 25-OH Vitamin D, Total 31.7 ng/mL (30-100)
[2023-04-08 16:05] LABS: Lyme B. burgdorferi PCR Blood Negative (Negative)
== END ==
LOC: LAB 12:58
PROVIDERS: PCP Emergency Medicine; Visit Provider Student in an Organized Health Care Education/Training Program
DX: R53.83 Other fatigue (principal); E78.5 Hyperlipidemia, unspecified; Z13.29 Encounter for screening for other suspected endocrine disorder; R60.9 Edema, unspecified; E66.9 Obesity, unspecified; Z3A.35 35 weeks gestation of pregnancy; W57.XXXA Bitten or stung by nonvenomous insect and other nonvenomous arthropods, initial encounter
CPT/HCPCS: 36415; 80053; 80061; 82306; 84443; 85025; 87476

== ENCOUNTER → 2023-04-25 14:25 | Outpatient (CLI) | payer OTHER, SELFPAY ==
[2023-04-25 18:50] LABS: Amphetamine/Metha Screen,Urine Negative ng/ml (<1000)
[2023-04-25 18:51] LABS: Barbiturates Screen,Urine Negative ng/ml (<200)
[2023-04-25 18:52] LABS: Benzodiazepines Screen,Urine Negative ng/ml (<200); Cannabinoid Screen,Urine Negative ng/ml (<50)
[2023-04-25 18:53] LABS: Cocaine Screen,Urine Negative ng/ml (<300)
[2023-04-25 18:54] LABS: Methadone Screen,Urine Negative ng/ml (<300); Opiate Screen,Urine Negative ng/ml (<300)
[2023-04-25 18:55] LABS: Phencyclidine Screen,Urine Negative ng/ml (<25)
== END ==
LOC: LAB.DROPOF 04-26 09:18
PROVIDERS: PCP Emergency Medicine; Visit Provider Emergency Medicine
DX: Z79.899 Other long term (current) drug therapy (principal)
CPT/HCPCS: 80305

== ENCOUNTER → 2023-06-20 21:32 | Outpatient (CLI) | payer OTHER, SELFPAY ==
[2023-06-20 17:22] LABS: Amphetamine/Metha Screen,Urine Negative ng/ml (<1000)
[2023-06-20 17:23] LABS: Barbiturates Screen,Urine Negative ng/ml (<200); Benzodiazepines Screen,Urine Negative ng/ml (<200)
[2023-06-20 17:24] LABS: Cannabinoid Screen,Urine Negative ng/ml (<50); Cocaine Screen,Urine Negative ng/ml (<300)
[2023-06-20 17:25] LABS: Methadone Screen,Urine Negative ng/ml (<300)
[2023-06-20 17:26] LABS: Opiate Screen,Urine Positive ng/ml (<300); Phencyclidine Screen,Urine Negative ng/ml (<25)
== END ==
LOC: LAB.DROPOF 21:33
PROVIDERS: PCP Emergency Medicine; Visit Provider Emergency Medicine
DX: F41.0 Panic disorder [episodic paroxysmal anxiety] (principal)
CPT/HCPCS: 80305

== ENCOUNTER → 2023-08-18 14:54 | Outpatient (CLI) | payer OTHER, SELFPAY ==
[2023-08-18 17:12] LABS: Amphetamine/Metha Screen,Urine Negative ng/ml (<1000); Barbiturates Screen,Urine Negative ng/ml (<200)
[2023-08-18 17:14] LABS: Benzodiazepines Screen,Urine Negative ng/ml (<200)
[2023-08-18 17:15] LABS: Cannabinoid Screen,Urine Negative ng/ml (<50); Cocaine Screen,Urine Negative ng/ml (<300)
[2023-08-18 17:16] LABS: Methadone Screen,Urine Negative ng/ml (<300)
[2023-08-18 17:17] LABS: Opiate Screen,Urine Negative ng/ml (<300); Phencyclidine Screen,Urine Negative ng/ml (<25)
== END ==
PROVIDERS: Visit Provider Family Medicine
DX: Z79.899 Other long term (current) drug therapy (principal)
CPT/HCPCS: 80305

== ENCOUNTER 2023-09-17 15:29 | Outpatient (CLI) | payer OTHER, SELFPAY ==
[2023-09-17 14:51] LABS: Amphetamine/Metha Screen,Urine Negative ng/ml (<1000); Benzodiazepines Screen,Urine Negative ng/ml (<200); Cannabinoid Screen,Urine Negative ng/ml (<50); Cocaine Screen,Urine Negative ng/ml (<300); Methadone Screen,Urine Negative ng/ml (<300); Opiate Screen,Urine Negative ng/ml (<300); Phencyclidine Screen,Urine Negative ng/ml (<25)
[2023-09-17 15:13] LABS: Barbiturates Screen,Urine Negative ng/ml (<200)
[2023-09-23 06:04] LABS: Opiates Negative (Cutoff=100)
== END 2023-09-17 23:59 ==
LOC: LAB.DROPOF 15:29
PROVIDERS: PCP Family Medicine; Visit Provider Family Medicine
DX: Z79.899 Other long term (current) drug therapy (principal); G89.29 Other chronic pain; M54.9 Dorsalgia, unspecified
CPT/HCPCS: 80307; 80361; 80365; G0480

== ENCOUNTER 2023-11-17 20:53 | Emergency (ER) | payer OTHER, SELFPAY ==
[2023-11-17 20:54] VITALS: BP 166/95; PULSE 107; RESP 19; TEMP 36.8; O2SAT 100; BMI 40.0
--- NOTE | 2023-11-17 20:55 | ECG_ITS ---
APPROVED REPORT Exam: Resting ECG HR:110 bpm ECG Measurements Heart Rate 110 AXES ID 147 P 66 QRSd 98 QRS 33 QT 326 T 77 QTc 391 Conclusion SINUS TACHYCARDIA ABNORMAL RHYTHM ECG UNCONFIRMED REPORT Electronically signed by : JOSE E CAI, 11/18/2023 07:09:23
--- NOTE | 2023-11-17 20:55 | ED_ITS ---
I was consulted by the EVELINA, and we discussed the complexity of the problems being addressed. I approved the treatment and management plan for this patient's care in the emergency department, thus performing a substantive portion of the medical decision making. Poornima Pedroza MD, ROSSANA, FACEP Discharge Plan Disposition Chief Complaint: Chest Pain Prescriptions Prescriptions: No Action metformin 500 mg tablet 500 mg PO DAILY atorvastatin 20 mg tablet 20 mg PO DAILY hydrocodone-acetaminophen 5-325 mg tablet 1 tab PO DAILYP PRN (Reason: Pain) lisinopril 10 mg tablet 10 mg PO DAILY metoprolol succinate 25 mg tablet extended release 24 hr 25 mg PO HS ergocalciferol (vitamin D2) 1,250 mcg (50,000 unit) capsule 1,250 mcg PO WEEKLY zolpidem 10 mg tablet 10 mg PO HSP PRN (Reason: Insomnia) Premarin 0.3 mg tablet 0.3 mg PO DAILY escitalopram oxalate 20 mg tablet 20 mg PO HS atomoxetine 60 mg capsule 60 mg PO DAILY Ozempic 0.25 mg or 0.5 mg (2 mg/3 mL) pen injector 0.5 mg SQ WEEKLY Referrals Follow up/Referrals: Candi Bueno APRN [Primary Care Provider] - See instructions Discharge ED Provider: Poornima Pedroza HPI <ABDOULAYE Stewart - Last Filed: 11/17/23 22:43> General Chief Complaint: Chest Pain Stated Complaint: Chest pain Time Seen by Provider: 11/17/23 20:55 History of Present Illness HPI narrative: Patient presents with a initially chief complaint of left-sided chest pain. Patient gives history of increasing chest pain that started during her 12-hour shift that is continued to progress and is now a 7 out of 10 on arrival to the ER. Patient states the pain radiates to her back and has made her nauseous but otherwise denies shortness of breath fever chills hemoptysis hematochezia melena nausea vomiting diarrhea. Patient also reports that her vision is altered and she is finding it hard to see. Patient does have a history of panic disorder and anxiety but she has not had a panic attack in some time. Related Data Home Medications Medication Instructions Recorded Confirmed atomoxetine 60 mg capsule 60 mg PO DAILY 11/17/23 11/17/23 atorvastatin 20 mg tablet 20 mg PO DAILY 11/17/23 11/17/23 conjugated estrogens 0.3 mg tablet 0.3 mg PO DAILY 11/17/23 11/17/23 (Premarin) ergocalciferol (vitamin D2) 1,250 1,250 mcg PO WEEKLY 11/17/23 11/17/23 mcg (50,000 unit) capsule escitalopram oxalate 20 mg tablet 20 mg PO HS 11/17/23 11/17/23 hydrocodone 5 mg-acetaminophen 325 1 tab PO DAILYP PRN Pain 11/17/23 11/17/23 mg tablet lisinopril 10 mg tablet 10 mg PO DAILY 11/17/23 11/17/23 metformin 500 mg tablet 500 mg PO DAILY 11/17/23 11/17/23 metoprolol succinate 25 mg 25 mg PO HS 11/17/23 11/17/23 tablet,extended release 24 hr semaglutide 0.25 mg or 0.5 mg (2 0.5 mg SQ WEEKLY 11/17/23 11/17/23 mg/3 mL) subcutaneous pen injector (Ozempic) zolpidem 10 mg tablet 10 mg PO HSP PRN Insomnia 11/17/23 11/17/23 Allergies Allergy/AdvReac Type Severity Reaction Status Date / Time No Known Allergies Allergy Verified 10/16/23 09:36 PFS <ABDOULAYE Stewart - Last Filed: 11/17/23 22:43> [facility] Disclaimer: The information contained in this section may have been updated after the patient was seen, as this information can be updated by other users. Medical History Attention deficit disorder (ADD) in adult Bronchitis DDD (degenerative disc disease), cervical Influenza A Insomnia Panic disorder Productive cough Right wrist sprain Shortness of breath UTI (urinary tract infection) Social History Smoking Status: Current some day smoker tobacco type: cigarettes packs per day: 3 alcohol intake: never substance use type: denies use and marijuana current occupational status: employed Travel in the last 8 weeks: None household members: family housing: house number of children: 1 <ABDOULAYE Stewart - Last Filed: 11/17/23 22:43> ROS Obtained: Yes Systems reviewed as appropriate & no additional complaints except as documented Physical Exam <ABDOULAYE Stewart - Last Filed: 11/17/23 22:43> General General appearance: alert and in no apparent distress Head Head exam: atraumatic and normal inspection Eye Eye exam: Present normal appearance and PERRL ENT ENT exam: Present normal exam, normal oropharynx and mucous membranes moist Neck Neck exam: Present normal inspection and full ROM Chest Chest inspection: Present normal inspection and symmetric chest wall rise Respiratory Respiratory exam: Present normal lung sounds bilaterally; Absent respiratory distress or wheezes Cardiovascular Cardiovascular exam: Present normal rhythm, tachycardia (Sinus), normal heart sounds, +S1 and +S2 Abdominal Exam Abdominal exam: Present soft and normal bowel sounds; Absent tenderness Extremities Exam Extremities exam: Present normal inspection and full ROM Back Exam Back exam: Present normal inspection and full ROM Neurological Exam Neurological exam: Present alert and oriented X3 Psychiatric Psychiatric exam: Present normal affect and anxious Skin Skin exam: Present warm, dry and normal color Lymphatic Lymphatic Findings: no adenopathy HEART Score <ABDOULAYE Stewart Last Filed: 11/17/23 22:43> HEART Score HEART Score assessment performed?: Yes History (anamnesis): Slightly suspicious ECG: Non-specific disturbance Age: 45-65 years Risk factors: 1-2 risk factors Troponin: </= normal limit HEART Score: 3 Critical Care <ABDOULAYE Stewart Last Filed: 11/17/23 22:43> Critical Care Time Critical Care Time: No Medical Decision Making <ABDOULAYE Stewart Last Filed: 11/17/23 22:43> Medical Records Medical records reviewed: Yes I reviewed the patient's medical records. Phil Inquiry Pt receiving controlled substance: No Vital Signs Vital Signs: 11/17/23 20:54 11/17/23 21:02 11/17/23 21:31 Temperature 98.3 F Temperature Source Oral Pulse Rate 103 H 93 H Pulse Rate [Left] 107 H Respiratory Rate 19 Blood Pressure 128/72 Blood Pressure [Left Arm] 166/95 H Blood Pressure Mean [Left Arm] 118 Blood Pressure Source [Left Arm] Automatic Cuff Blood Pressure Position [Left Arm] Supine 02 Sat by Pulse Oximetry 100 94 L Oxygen Delivery Method Room Air 11/17/23 22:00 Temperature Temperature Source Pulse Rate 89 Pulse Rate [Left] Respiratory Rate Blood Pressure 125/79 Blood Pressure [Left Arm] Blood Pressure Mean [Left Arm] Blood Pressure Source [Left Arm] Blood Pressure Position [Left Arm] 02 Sat by Pulse Oximetry 98 Oxygen Delivery Method Lab Data Lab results reviewed: Yes I reviewed the patient's lab results. Labs: Lab Results 11/17/23 21:00: WBC 13.3 H, RBC 4.61, Hgb 14.0, Hct 44.0, MCV 95.5, MCH 30.3, MCHC 31.7 L, RDW 13.0, Plt Count 398, MPV 7.6, Neut % (Auto) 59.2, Lymph % (Auto) 31.8, [place] % (Auto) 5.6, Eos % (Auto) 2.6, Baso % (Auto) 0.9, Neut # (Auto) 7.9 H, Lymph # (Auto) 4.2, [place] # (Auto) 0.7, Eos # (Auto) 0.3, Baso # (Auto) 0.1, PT 10.4, INR 0.96, D-Dimer 0.27, Sodium 139, Potassium 3.4 L, Chloride 102, Carbon Dioxide 30, Anion Gap 10.4, BUN 6 L, Creatinine 0.80, Estimated Creat Clear 130, Estimated GFR 78, Est GFR ( Amer) 94, Glucose 110 H, Calcium 9.0, Magnesium 2.0, Total Bilirubin 0.3, AST 31, ALT 25, Alkaline Phosphatase 80, Troponin I < 0.01, Total Protein 7.6, Albumin 4.5, Globulin 3.1, Albumin/Globulin Ratio 1.5, TSH 2.38, Serum HCG, Qual Negative 11/17/23 21:10: SARS-CoV-2 (PCR) Not detected, Influenza A Untype (PCR) Not detected, Influenza Type B (PCR) Not detected 11/17/23 21:00 11/17/23 21:00 Response Orders (Tests/Meds): ED MEDICATIONS Generic Name Dose Route Start Last Admin Trade Name Freq PRN Reason Stop Dose Admin Lactated Ringer's 1,000 mls @ 999 mls/hr 11/17/23 21:58 11/17/23 22:11 Lactated Ringer's 1000 Ml Bag IV 11/17/23 22:58 999 mls/hr .Q1H1M ONE Administration Discontinued Medications Generic Name Dose Route Start Last Admin Trade Name Freq PRN Reason Stop Dose Admin Acetaminophen 1,000 mg 03/04/24 21:01 11/17/23 21:07 Acetaminophen 1,000mg/100ml Vial IV 11/17/23 21:02 1,000 mg ONCE ONE Administration Belladonna Alkaloids 60 ml 11/17/23 21:57 11/17/23 22:11 Belladonna Alkaloids 60 Ml Ml PO 11/17/23 21:58 60 ml ONCE ONE Administration Hydroxyzine Pamoate 50 mg 11/17/23 21:58 11/17/23 22:10 Hydroxyzine Pamoate 25mg Capsule PO 11/17/23 21:59 50 mg ONCE ONE Administration Ketorolac Tromethamine 15 mg 11/17/23 21:01 11/17/23 21:06 Ketorolac 30mg/Ml Vial IV 11/17/23 21:02 15 mg ONCE ONE Administration Metoprolol Tartrate 25 mg 11/17/23 22:12 11/17/23 22:24 Metoprolol Tartrate 50mg Tablet PO 11/17/23 22:13 25 mg ONCE ONE Administration Ondansetron HCl 4 mg 11/17/23 21:57 11/17/23 22:10 Ondansetron 4mg Odt SL 11/17/23 21:58 4 mg ONCE ONE Administration ORDERS Category Date Time Status Chest XR -- portable [XR chest portable] Stat Exams 11/17/23 21:01 Completed CBC w/Auto Diff [Complete Blood Count Auto Diff] Stat Lab 11/17/23 21:00 Completed CMP [Comprehensive Metabolic Panel] Stat Lab 11/17/23 21:00 Completed D-Dimer Stat Lab 11/17/23 21:00 Completed HCG Qualitative, Serum Stat Lab 11/17/23 21:00 Completed INR [Prothrombin Time INR] Stat Lab 11/17/23 21:00 Completed Magnesium Stat Lab 11/17/23 21:00 Completed Rapid PCR Covid and Flu A/B Stat Lab 11/17/23 21:10 Completed TSH [Thyroid Stimulating Hormone] Stat Lab 11/17/23 21:00 Completed Trop I [Troponin I] Stat Lab 11/17/23 21:00 Completed Troponin I Q3H Lab 11/18/23 00:15 Ordered Troponin I Q3H Lab 11/18/23 03:15 Ordered UA [Urinalysis and Microscopic] Stat Lab 11/17/23 21:02 Ordered UDS [Drug Screen,Urine] Stat Lab 11/17/23 21:01 Ordered MDM Narrative Medical Decision Narrative: In summary patient is a 43-year-old female who presents to the emergency department for evaluation of sided chest pain that has been constant and present since 12 noon today but per her has been at maximal level at scale of 7 out of 10 for 6 hours straight. Patient is normotensive tachycardic but with otherwise stable vital signs satting at 100% on room air upon arrival, and afebrile. Physical exam shows a morbidly obese, with a BMI of 40, 43-year-old female who appears to be anxious but otherwise in no obvious acute distress. The remainder of the physical exam is unremarkable for any acute findings and nonfocal. Differential diagnosis includes ACS, PE, panic attack, gastrointestinal cause etc. Initial workup will be conducted with hematologic labs plain film chest x- ray twelve-lead EKG flu and COVID swabs. Initial interventions include Toradol and acetaminophen. Initial workup reviewed by me shows an elevated white count with a left shift and a slightly low potassium the remainder of her laboratory investigations are nonactionable including a normal and undetectable troponin. As she has a negative troponin negative dimer with more than 8 hours of constant chest pain secondary troponin is not indicated. My informal interpretation of her plain film chest x-ray shows no acute processes. The radiologist read is pending however.. Upon repeat evaluation moderate improvement of her left-sided chest discomfort and is comfortable with going home. Patient to follow-up with PCP for any return or change in her symptoms. Patient to return to ER as needed. <Poornima Pedroza MD - Last Filed: 11/17/23 20:58> Vital Signs Vital Signs: 11/17/23 20:54 11/17/23 21:02 11/17/23 21:31 Temperature 98.3 F Temperature Source Oral Pulse Rate 103 H 93 H Pulse Rate [Left] 107 H Respiratory Rate 19 Blood Pressure 128/72 Blood Pressure [Left Arm] 166/95 H Blood Pressure Mean [Left Arm] 118 Blood Pressure Source [Left Arm] Automatic Cuff Blood Pressure Position [Left Arm] Supine 02 Sat by Pulse Oximetry 100 94 L Oxygen Delivery Method Room Air 11/17/23 22:00 Temperature Temperature Source Pulse Rate 89 Pulse Rate [Left] Respiratory Rate Blood Pressure 125/79 Blood Pressure [Left Arm] Blood Pressure Mean [Left Arm] Blood Pressure Source [Left Arm] Blood Pressure Position [Left Arm] 02 Sat by Pulse Oximetry 98 Oxygen Delivery Method Lab Data Labs: Lab Results 11/17/23 21:00: WBC 13.3 H, RBC 4.61, Hgb 14.0, Hct 44.0, MCV 95.5, MCH 30.3, MCHC 31.7 L, RDW 13.0, Plt Count 398, MPV 7.6, Neut % (Auto) 59.2, Lymph % (Auto) 31.8, [place] % (Auto) 5.6, Eos % (Auto) 2.6, Baso % (Auto) 0.9, Neut # (Auto) 7.9 H, Lymph # (Auto) 4.2, [place] # (Auto) 0.7, Eos # (Auto) 0.3, Baso # (Auto) 0.1, PT 10.4, INR 0.96, D-Dimer 0.27, Sodium 139, Potassium 3.4 L, Chloride 102, Carbon Dioxide 30, Anion Gap 10.4, BUN 6 L, Creatinine 0.80, Estimated Creat Clear 130, Estimated GFR 78, Est GFR ( Amer) 94, Glucose 110 H, Calcium 9.0, Magnesium 2.0, Total Bilirubin 0.3, AST 31, ALT 25, Alkaline Phosphatase 80, Troponin I < 0.01, Total Protein 7.6, Albumin 4.5, Globulin 3.1, Albumin/Globulin Ratio 1.5, TSH 2.38, Serum HCG, Qual Negative 11/17/23 21:10: SARS-CoV-2 (PCR) Not detected, Influenza A Untype (PCR) Not detected, Influenza Type B (PCR) Not detected Response Orders (Tests/Meds): ED MEDICATIONS Generic Name Dose Route Start Last Admin Trade Name Freq PRN Reason Stop Dose Admin Lactated Ringer's 1,000 mls @ 999 mls/hr 11/17/23 21:58 11/17/23 22:11 Lactated Ringer's 1000 Ml Bag IV 11/17/23 22:58 999 mls/hr .Q1H1M ONE Administration Discontinued Medications Generic Name Dose Route Start Last Admin Trade Name Freq PRN Reason Stop Dose Admin Acetaminophen 1,000 mg 11/17/23 21:01 11/17/23 21:07 Acetaminophen 1,000mg/100ml Vial IV 11/17/23 21:02 1,000 mg ONCE ONE Administration Belladonna Alkaloids 60 ml 11/17/23 21:57 11/17/23 22:11 Belladonna Alkaloids 60 Ml Ml PO 11/17/23 21:58 60 ml ONCE ONE Administration Hydroxyzine Pamoate 50 mg 11/17/23 21:58 11/17/23 22:10 Hydroxyzine Pamoate 25mg Capsule PO 11/17/23 21:59 50 mg ONCE ONE Administration Ketorolac Tromethamine 15 mg 11/17/23 21:01 11/17/23 21:06 Ketorolac 30mg/Ml Vial IV 11/17/23 21:02 15 mg ONCE ONE Administration Metoprolol Tartrate 25 mg 11/17/23 22:12 11/17/23 22:24 Metoprolol Tartrate 50mg Tablet PO 11/17/23 22:13 25 mg ONCE ONE Administration Ondansetron HCl 4 mg 11/17/23 21:57 11/17/23 22:10 Ondansetron 4mg Odt SL 11/17/23 21:58 4 mg ONCE ONE Administration ORDERS Category Date Time Status Chest XR -- portable [XR chest portable] Stat Exams 11/17/23 21:01 Completed CBC w/Auto Diff [Complete Blood Count Auto Diff] Stat Lab 11/17/23 21:00 Completed CMP [Comprehensive Metabolic Panel] Stat Lab 11/17/23 21:00 Completed D-Dimer Stat Lab 11/17/23 21:00 Completed HCG Qualitative, Serum Stat Lab 11/17/23 21:00 Completed INR [Prothrombin Time INR] Stat Lab 11/17/23 21:00 Completed Magnesium Stat Lab 11/17/23 21:00 Completed Rapid PCR Covid and Flu A/B Stat Lab 11/17/23 21:10 Completed TSH [Thyroid Stimulating Hormone] Stat Lab 11/17/23 21:00 Completed Trop I [Troponin I] Stat Lab 11/17/23 21:00 Completed Troponin I Q3H Lab 11/18/23 00:15 Ordered Troponin I Q3H Lab 11/18/23 03:15 Ordered UA [Urinalysis and Microscopic] Stat Lab 11/17/23 21:02 Ordered UDS [Drug Screen,Urine] Stat Lab 11/17/23 21:01 Ordered ECG Data Tracing #1: Attestation: I reviewed this ECG and interpreted as documented below: ECG Narrative: Ventricular rate 110 no acute ischemic changes noted normal axis no conduction abnormalities sinus tachycardia otherwise normal EKG
--- NOTE | 2023-11-17 21:01 | XR_ITS ---
PROCEDURE INFORMATION: Exam: XR Chest Exam date and time: 11/17/2023 9:06 PM Age: 43 years old Clinical indication: Pain; Chest pressure; Additional info: Acute chest pain TECHNIQUE: Imaging protocol: Radiologic exam of the chest. Views: 1 view. COMPARISON: CT ANGIO CHEST 02/05/2021 12:27 AM FINDINGS: Lungs: Unremarkable. No consolidation. Pleural spaces: Unremarkable. No pleural effusion. No pneumothorax. Heart/Mediastinum: Unremarkable. No cardiomegaly. Vasculature: Unremarkable. Bones/joints: Unremarkable. IMPRESSION: No acute findings.
[2023-11-17 21:02] VITALS: PULSE 103
[2023-11-17] MEDS: KETOROLAC 30MG/ML VIAL 15 MG IV (21:06)
[2023-11-17] MEDS: ACETAMINOPHEN 1,000MG/100ML VIAL 1000 MG IV (21:07)
[2023-11-17 21:18] LABS: Basophils # 0.1 K/mm3 (0-0.2); Basophils % 0.9 % (0.1-2.0); Chloride 102 mmol/L (98-107); Eosinophils # 0.3 K/mm3 (0.0-0.4); Eosinophils % 2.6 % (0.1-12.0); Lymphocytes # 4.2 K/mm3 (0.7-4.5); Lymphocytes % 31.8 % (10-50); Mean Corpuscular HGB Conc 31.7 g/dL (31.8-35.4); Mean Corpuscular Hemoglobin 30.3 pg (27.0-31.2); Mean Corpuscular Volume 95.5 fl (81-99); Mean Platelet Volume 7.6 fl (7.4-10.4); Monocytes # 0.7 K/mm3 (0.1-1.0); Monocytes % 5.6 % (1.7-9.3); Neutrophils # 7.9 K/mm3 (1.8-7.8); Neutrophils % 59.2 % (37.0-80.0); Platelet Count 398 K/mm3 (142-424); Potassium 3.4 mmoL/L (3.5-5.1); Red Blood Count 4.61 M/mm3 (4.20-5.40); Sodium 139 mmol/L (136-145); White Blood Count 13.3 K/mm3 (4.8-10.8)
[2023-11-17 21:18] LABS: Coronavirus 19, PCR Not Detected (NotDetected); Influenza A, PCR Not Detected (NotDetected); Influenza B, PCR Not Detected (NotDetected)
[2023-11-17 21:19] LABS: HCG Qualitative, Serum Negative (Negative)
[2023-11-17 21:20] LABS: INR 0.96 (0.9-1.1); Prothrombin Time 10.4 seconds (10.1-12.5)
[2023-11-17 21:21] LABS: Alanine Aminotransferase 25 U/L (12-78); Albumin Level 4.5 g/dl (3.5-5.0); Albumin/Globulin Ratio 1.5 (1.1-1.8); Alkaline Phosphatase 80 U/L (38-126); Anion Gap 10.4 mEq/L (5-15); Aspartate Amino Transferase 31 U/L (14-36); Bilirubin,Total 0.3 mg/dl (0.2-1.3); Blood Urea Nitrogen 6 mg/dl (7-17); Carbon Dioxide 30 mmol/L (22.0-30.0); Creatinine Clearance Estimated 130 mL/min (50-200); Estimated Glomerular Filt Rate 78 ml/min (>60); GFR (African American) 94 ML/MIN (>60); Globulin 3.1 g/dL (1.3-3.2); Total Protein,Serum 7.6 g/dl (6.3-8.2)
[2023-11-17 21:22] LABS: Glucose 110 mg/dl (74-100)
[2023-11-17 21:31] VITALS: BP 128/72; PULSE 93; O2SAT 94
[2023-11-17 21:33] LABS: D-Dimer 0.27 ug/mL (0.0-0.5)
--- NOTE | 2023-11-17 21:35 | PC.NURSE ---
made rounds in room. patient reports nausea. and PA notified
[2023-11-17 21:41] LABS: Troponin I < 0.01 ng/ml (0.00-0.034)
[2023-11-17 21:52] LABS: Thyroid Stimulating Hormone 2.38 uIU/mL (0.465-4.68)
[2023-11-17 22:00] VITALS: BP 125/79; PULSE 89; O2SAT 98
[2023-11-17] MEDS: ONDANSETRON 4MG ODT 4 MG SL (22:10)
[2023-11-17] MEDS: hydrOXYzine pamoate 25MG CAPSULE 50 MG PO (22:10)
[2023-11-17] MEDS: BELLADONNA ALKALOIDS 60 ML ML PO (22:11)
[2023-11-17] MEDS: LACTATED RINGERS 1000ML 1,000 ML 999 ML IV (22:11)
[2023-11-17] MEDS: METOPROLOL TARTRATE 50MG TABLET 25 MG PO (22:24)
[2023-11-17 22:46] VITALS: BP 121/82; PULSE 94; RESP 17; TEMP 36.8; O2SAT 99
== END 2023-11-17 22:46 | disposition home or self-care (01) ==
PROVIDERS: Physician Assistant; Emergency Provider Student in an Organized Health Care Education/Training Program; PCP Family Medicine
DX: R07.89 Other chest pain (principal); R00.0 Tachycardia, unspecified; R11.0 Nausea; H53.8 Other visual disturbances; E87.6 Hypokalemia; F17.210 Nicotine dependence, cigarettes, uncomplicated; E66.01 Morbid (severe) obesity due to excess calories; Z68.41 Body mass index [BMI] 40.0-44.9, adult
CPT/HCPCS: 71045; 80053; 83735; 84443; 84484; 84703; 85025; 85378; 85610; 87636; 93005; 96361; 96374; 96375; 99285; J0131

== ENCOUNTER 2023-12-19 15:39 | Outpatient (CLI) | payer OTHER, SELFPAY ==
--- NOTE | 2023-12-19 15:40 | US_ITS ---
FINAL REPORT CLINICAL HISTORY: . Hypertension COMPARISON: None FINDINGS: RENAL ULTRASOUND: The right kidney measures 9.7 cm in length. The left kidney measures 11 cm in length. No evidence of hydronephrosis or perinephric fluid collections are seen. No renal masses noted on either side. IMPRESSION: Unremarkable bilateral renal ultrasound. Reviewed, Interpreted and Dictated by Nilay Mahajan III, MD Transcribed by Tammy Gillespie Authenticated and [facility]
== END 2023-12-19 23:59 ==
LOC: RAD 15:40
PROVIDERS: PCP Family Medicine; Visit Provider Family Medicine
DX: I10 Essential (primary) hypertension (principal)
CPT/HCPCS: 76770

== ENCOUNTER 2024-12-01 15:38 | Outpatient (CLI) | payer OTHER, SELFPAY ==
[2024-12-01 18:58] LABS: Basophils # 0.1 K/mm3 (0-0.2); Basophils % 0.8 % (0.1-2.0); Eosinophils # 0.3 K/mm3 (0.0-0.4); Eosinophils % 4.4 % (0.1-12.0); Hematocrit 38.4 % (37.0-47.0); Hemoglobin 12.5 g/dL (12.2-16.2); Lymphocytes # 2.1 K/mm3 (0.7-4.5); Lymphocytes % 34.9 % (10-50); Mean Corpuscular HGB Conc 32.6 g/dL (31.8-35.4); Mean Corpuscular Hemoglobin 30.5 pg (27.0-31.2); Mean Corpuscular Volume 93.7 fl (81-99); Mean Platelet Volume 10.6 fl (7.4-10.4); Monocytes # 0.4 K/mm3 (0.1-1.0); Monocytes % 7.1 % (1.7-9.3); Neutrophils # 3.2 K/mm3 (1.8-7.8); Neutrophils % 52.6 % (37.0-80.0); Platelet Count 242 K/mm3 (142-424); Red Cell Distribution Width 12.8 % (11.5-17.5); White Blood Count 6.1 K/mm3 (4.8-10.8)
[2024-12-01 19:44] LABS: Chloride 105 mmol/L (98-107); Potassium 4.4 mmoL/L (3.5-5.1); Sodium 137 mmol/L (136-145)
[2024-12-01 19:46] LABS: Blood Urea Nitrogen 10 mg/dl (7-17); Estimated Glomerular Filt Rate 77 ml/min (>60); GFR (African American) 93 ML/MIN (>60)
[2024-12-01 19:47] LABS: Alanine Aminotransferase 16 U/L (12-78); Alkaline Phosphatase 54 U/L (38-126); Anion Gap 6.4 mEq/L (5-15); Aspartate Amino Transferase 23 U/L (14-36); Calcium 8.8 mg/dl (8.4-10.2); Carbon Dioxide 30 mmol/L (22.0-30.0); Chol/HDL Ratio 2.9 (1-3.5); Cholesterol 138 mg/dl (140-200); Glucose 84 mg/dl (74-100); HDL Cholesterol 48 mg/dl (40-60); Triglycerides 227 mg/dl (30-150); VLDL Cholesterol 45 mg/dL (0-40)
[2024-12-01 19:49] LABS: Bilirubin,Total 0.1 mg/dl (0.2-1.3)
[2024-12-01 20:24] LABS: Thyroid Stimulating Hormone 1.08 uIU/mL (0.465-4.68)
== END 2024-12-01 23:59 | disposition home or self-care (01) ==
LOC: LAB.DROPOF 12-02 13:37
PROVIDERS: PCP Family Medicine; Visit Provider Family Medicine
DX: I10 Essential (primary) hypertension (principal); E55.9 Vitamin D deficiency, unspecified
CPT/HCPCS: 80053; 80061; 82306; 84443; 85025

== ENCOUNTER 2024-12-06 07:05 | Outpatient (CLI) | payer OTHER, SELFPAY ==
--- NOTE | 2024-12-06 07:06 | MR_ITS ---
FINAL REPORT TECHNIQUE: Multi plantar and multisequence imaging of the cervical spine was obtained before and after the administration of intravenous contrast. CLINICAL HISTORY: neck pain FINDINGS: There is normal alignment of the cervical vertebral bodies. Vertebral body height is preserved. Bone marrow signal intensity is normal. There is no edema or pathologic marrow replacement. The signal intensity within the substance of the spinal cord is normal. There is no paraspinal mass or fluid collection. C2-C3: There is no focal disc herniation, central stenosis or neural foraminal narrowing. C3-C4: There is no focal disc herniation, central stenosis or neural foraminal narrowing. C4-C5: There is no focal disc herniation, central stenosis or neural foraminal narrowing. C5-C6: There is an annular disc bulge with degenerative endplate changes and facet osteoarthropathy. No significant central canal stenosis or neuroforaminal narrowing. C6-C7: Annular disc bulge with degenerative endplate changes and facet osteoarthropathy. Mild, right greater than left neuroforaminal narrowing. No significant central canal stenosis. C7-T1: There is no focal disc herniation, central stenosis or neural foraminal narrowing. Postcontrast images reveal no pathologic contrast enhancement. IMPRESSION: Degenerative changes at C5-6 and C6-7 without acute bony abnormality. Reviewed, Interpreted and Dictated by Stefanie Hughes MD Transcribed by Aicha Ashford Authenticated and [facility]
--- NOTE | 2024-12-06 07:06 | MR_ITS ---
FINAL REPORT TECHNIQUE: Multiplanar and multisequence MR imaging was performed through the lumbar spine before and after contrast administration. CLINICAL HISTORY: back pain FINDINGS: The vertebral bodies are normally aligned. The vertebral body heights are preserved. There is no bone marrow edema. There is a hemangioma seen in the L1 vertebral body. The cord terminates at L2. There is normal signal within the distal cord. There is no abnormal enhancement in the distal cord. There is no acute paraspinal abnormality. There is no loculated fluid collection. L1-2: Unremarkable. L2-L3: Unremarkable. L3-L4: Annular disc bulge with mild bilateral neuroforaminal narrowing.. L4-L5: Annular disc bulge with bilateral facet osteoarthropathy. There is mild right and moderate left neuroforaminal narrowing. L5-S1: Annular disc bulge with degenerative endplate changes and facet osteoarthropathy. There is mild to moderate, left greater than right neuroforaminal narrowing. IMPRESSION: No acute bony abnormality. Degenerative disc disease, most pronounced at L4-5 and L5-S1. Reviewed, Interpreted and Dictated by Stefanie Hughes MD Transcribed by Aicha Ashford Authenticated and [facility]
[2024-12-06] MEDS: GADOTERIDOL INJ 20ML SYRINGE 15 ML IV (08:28)
--- NOTE | 2024-12-06 08:58 | US_ITS ---
FINAL REPORT TECHNIQUE: Sonographic images of the right upper quadrant were obtained. CLINICAL HISTORY: liver lesion FINDINGS: PANCREAS: Obscured. LIVER: Homogeneous. Hyperechoic lesion is seen in the right hepatic lobe measuring 2 cm which is nonspecific. Findings could represent a hemangioma. Remaining liver is homogeneous. No intrahepatic biliary ductal dilatation. GALLBLADDER: Mildly distended with no gallstones. No gallbladder wall thickening or pericholecystic fluid. COMMON DUCT: 11 mm, which is dilated.. RIGHT KIDNEY: The right kidney measures 11.0 cm. There is no hydronephrosis, mass, or stone. FREE FLUID: None. IMPRESSION: Unremarkable ultrasound of the right upper quadrant. Reviewed, Interpreted and Dictated by Stefanie Hughes MD Transcribed by Aicha Ashford Authenticated and . [facility]
== END 2024-12-06 23:59 | disposition home or self-care (01) ==
LOC: RAD 07:06
PROVIDERS: PCP Family Medicine; Visit Provider Family Medicine
DX: M54.2 Cervicalgia (principal); M48.02 Spinal stenosis, cervical region; M47.812 Spondylosis without myelopathy or radiculopathy, cervical region; M54.9 Dorsalgia, unspecified; G89.29 Other chronic pain; K76.9 Liver disease, unspecified
CPT/HCPCS: 72156; 72158; 76705; A9576

== ENCOUNTER 2024-12-27 10:16 | Outpatient (CLI) | payer OTHER, SELFPAY ==
--- NOTE | 2024-12-27 10:18 | XR_ITS ---
FINAL REPORT CLINICAL HISTORY: FALL, DIFFICULTY BREATHING BECAUSE OF PAIN ON R FRONT COMPARISON: None FINDINGS: RIGHT RIBS WITH CHEST A single PA view of the chest and three views of the right ribs were obtained. The heart and mediastinum within normal limits. The lungs are clear. There is no pneumothorax. There is no acute displaced rib fracture. IMPRESSION: No acute cardiopulmonary process. No displaced rib fracture with no pneumothorax Reviewed, Interpreted and Dictated by Jad Mansfield MD Transcribed by Sabrina Hilario Authenticated and [facility]
== END 2024-12-27 23:59 | disposition home or self-care (01) ==
LOC: RAD 10:17
PROVIDERS: PCP Family Medicine; Visit Provider Family Medicine
DX: R07.89 Other chest pain (principal); R06.00 Dyspnea, unspecified
CPT/HCPCS: 71101

== ENCOUNTER 2025-01-03 17:13 | Outpatient (CLI) | payer OTHER, SELFPAY ==
[2025-01-03 17:47] LABS: Basophils # 0.1 K/mm3 (0-0.2); Basophils % 0.7 % (0.1-2.0); Eosinophils # 0.3 Kmm3 (0.0-0.4); Eosinophils % 3.6 % (0.1-12.0); Hematocrit 36.2 % (37.0-47.0); Hemoglobin 11.8 g/dL (12.2-16.2); Lymphocytes # 1.4 K/mm3 (0.7-4.5); Lymphocytes % 15.8 % (10-50); Mean Corpuscular HGB Conc 32.6 g/dL (31.8-35.4); Mean Corpuscular Hemoglobin 30.4 pg (27.0-31.2); Mean Corpuscular Volume 93.3 fl (81-99); Mean Platelet Volume 9.5 fl (7.4-10.4); Monocytes # 0.5 K/mm3 (0.1-1.0); Monocytes % 5.3 % (1.7-9.3); Neutrophils # 6.8 K/mm3 (1.8-7.8); Neutrophils % 74.4 % (37.0-80.0); Nucleated Red Blood Cells # 0 10^3/uL; Nucleated Red Blood Cells % 0 %; Platelet Count 281 K/mm3 (142-424); Red Blood Count 3.88 M/mm3 (4.20-5.40); Red Cell Distribution Width 12.3 % (11.5-17.5); Red Cell Distribution Width-SD 42.3 fL; White Blood Count 9.1 K/mm3 (4.8-10.8)
[2025-01-03 17:58] LABS: D-Dimer 1.13 ug/mL (0.0-0.5)
[2025-01-03 18:22] LABS: Alanine Aminotransferase 26 U/L (12-78); Albumin Level 3.7 g/dl (3.5-5.0); Albumin/Globulin Ratio 1.4 (1.1-1.8); Alkaline Phosphatase 84 U/L (38-126); Anion Gap 7.4 mEq/L (5-15); Aspartate Amino Transferase 34 U/L (14-36); Bilirubin,Total 0.3 mg/dl (0.2-1.3); Blood Urea Nitrogen 11 mg/dl (7-17); Calcium 9.1 mg/dl (8.4-10.2); Carbon Dioxide 27 mmol/L (22.0-30.0); Chloride 107 mmol/L (98-107); Estimated Glomerular Filt Rate 108 ml/min (>60); GFR (African American) 130 ML/MIN (>60); Globulin 2.7 g/dL (1.3-3.2); Glucose 122 mg/dl (74-100); Potassium 4.4 mmoL/L (3.5-5.1); Sodium 137 mmol/L (136-145); Total Protein,Serum 6.4 g/dl (6.3-8.2)
[2025-01-03 18:27] LABS: C-Reactive Protein 28.9 mg/L (0-4)
[2025-01-04 13:04] LABS: NT Pro Brain Natriuretic Pep. 2170 pg/mL (0-125)
== END 2025-01-03 23:59 | disposition home or self-care (01) ==
LOC: LAB 17:15
PROVIDERS: PCP Family Medicine; Visit Provider Family Medicine
DX: R06.02 Shortness of breath (principal); R07.81 Pleurodynia; R79.89 Other specified abnormal findings of blood chemistry
CPT/HCPCS: 36415; 80053; 83880; 85025; 85378; 86140

== ENCOUNTER 2025-01-04 14:42 | Emergency (ER) | payer OTHER, SELFPAY ==
[2025-01-04] VITALS (14 sets, daily range): BP systolic 92–119; BP diastolic 46–75; PULSE 77–94; RESP 19–20; TEMP 36.9; O2SAT 93–98; BMI 32.1
--- NOTE | 2025-01-04 14:51 | XR_ITS ---
FINAL REPORT CLINICAL HISTORY: SOA COMPARISON: 12/27/2024 FINDINGS: PORTABLE CHEST: The heart size is normal. The mediastinum is normal. There are subtle airspace opacities noted bilaterally, especially in the left midlung, that may represent pneumonia. There are no pleural effusions. There is no pneumothorax. There is no osseous abnormality. IMPRESSION: Subtle airspace opacities, particularly in the left midlung, that may represent pneumonia. Reviewed, Interpreted and Dictated by Jad Mansfield MD Transcribed by Tammy Gillespie Authenticated and . [facility]
--- NOTE | 2025-01-04 14:57 | CT_ITS ---
FINAL REPORT TECHNIQUE: The patient was injected with IV contrast. Axial images were obtained through the chest in a PE protocol. 3-D reconstruction images were also performed. Individualized dose reduction techniques using automated exposure control or adjustment of the MA and/or KV according to patient's size were employed. CLINICAL HISTORY: D-dimer, elevated shortness of air, right-sided ch COMPARISON: 01/16/2021 FINDINGS: Mediastinal vasculature is adequately opacified. No pulmonary artery filling defects are identified to suggest PE. There is no aortic dissection. There is no axillary adenopathy. There is mild mediastinal adenopathy present, particularly in the right paratracheal region, where nodes measure up to 1.2 cm, stable when compared to the prior exam. The heart size is normal. There is no pericardial or pleural effusion. Limited images of the upper abdomen are unremarkable. There are new patchy ground glass opacities present bilaterally, probably an acute infectious pneumonitis. There is a calcified granuloma present in the lingula. IMPRESSION: No pulmonary embolus or dissection. New patchy ground glass opacities present bilaterally, probably acute infectious pneumonitis. Reviewed, Interpreted and Dictated by Jad Mansfield MD Transcribed by Tammy Gillespie Authenticated and [facility]
--- NOTE | 2025-01-04 14:58 | ED_ITS ---
Discharge Plan Disposition Patient Disposition: Home, Self-Care Condition: Good Prescriptions Prescriptions: New amoxicillin-pot clavulanate 875-125 mg tablet 1 tab PO BID 7 Days Qty: 14 0RF doxycycline hyclate 100 mg capsule 100 mg PO BID 7 Days Qty: 14 0RF No Action fluticasone propionate 50 mcg/actuation spray,suspension 1 spray intranasal DAILY lamotrigine [Lamictal] 25 mg tablet 25 mg PO DAILY Qty: 42 0RF Rx Instructions: Take one tablet daily for two weeks, then increase to two tablets daily. If you develop a rash, stop and call the clinic. ergocalciferol (vitamin D2) 1,250 mcg (50,000 unit) capsule PO cholecalciferol (vitamin D3) 25 mcg (1,000 unit) tablet PO Vraylar 1.5 mg capsule 1.5 mg PO HS Qty: 30 2RF lisinopril 10 mg tablet 10 mg PO lidocaine 5 % adhesive patch,medicated See Rx Instructions topical .COMPLEX Qty: 30 1RF Rx Instructions: leave on most painful area for up to 12 hrs topical (DME) blood sugar diagnostic Strip See Rx Instructions .Route Qty: 50 2RF Rx Instructions: As directed atorvastatin 20 mg tablet See Rx Instructions .ROUTE .COMPLEX Qty: 90 3RF Dose Instruction: TAKE ONE TABLET BY MOUTH ONCE A DAY Rx Instructions: TAKE ONE TABLET BY MOUTH ONCE A DAY metoprolol succinate 25 mg tablet extended release 24 hr See Rx Instructions .ROUTE .COMPLEX Qty: 90 3RF Dose Instruction: TAKE ONE TABLET BY MOUTH AT BEDTIME Rx Instructions: TAKE ONE TABLET BY MOUTH AT BEDTIME escitalopram oxalate 20 mg tablet See Rx Instructions .ROUTE .COMPLEX Qty: 30 3RF Dose Instruction: TAKE ONE TABLET BY MOUTH ONCE A DAY AT BEDTIME Rx Instructions: TAKE ONE TABLET BY MOUTH ONCE A DAY AT BEDTIME omeprazole 20 mg capsule,delayed release(DR/EC) See Rx Instructions .ROUTE .COMPLEX Qty: 90 1RF Dose Instruction: TAKE ONE CAPSULE BY MOUTH ONCE A DAY Rx Instructions: TAKE ONE CAPSULE BY MOUTH ONCE A DAY prochlorperazine maleate 5 mg tablet See Rx Instructions .ROUTE .COMPLEX Qty: 45 2RF Dose Instruction: TAKE ONE TABLET BY MOUTH 3 TIMES A DAY NEEDED FOR NAUSEA/VOMITING Rx Instructions: TAKE ONE TABLET BY MOUTH 3 TIMES A DAY NEEDED FOR NAUSEA/VOMITING Premarin 0.3 mg tablet See Rx Instructions .ROUTE .COMPLEX Qty: 30 4RF Dose Instruction: TAKE ONE TABLET BY MOUTH ONCE A DAY Rx Instructions: TAKE ONE TABLET BY MOUTH ONCE A DAY metformin 500 mg tablet See Rx Instructions .ROUTE .COMPLEX Qty: 90 2RF Dose Instruction: TAKE ONE TABLET BY MOUTH ONCE A DAY Rx Instructions: TAKE ONE TABLET BY MOUTH ONCE A DAY Referrals Follow up/Referrals: Candi Bueno APRN [Primary Care Provider] - See instructions Activity Restrictions/Add. Instructions Additional Instructions/Restrictions: Please return to the emergency department any worsening signs or symptoms, please take all antibiotics as prescribed for your pneumonia, please follow-up with your PCP regarding your proBNP/further heart studies, return to emergency department with any worsening lower extremity swelling or pain, as well as any worsening shortness of breath or chest pain. Clinical Impressions Clinical Impression: Pneumonitis, Shortness of breath Instructions Patient Instructions: DI for Pneumonia -- Adult, DI for Shortness of Breath, DI for Atypical Pneumonia Print Language Print Language: Divehi Discharge ED Provider: Alvaro Buckley General Adult HPI <ABDOULAYE Ibrahim - Last Filed: 01/04/25 17:04> General Chief complaint: Shortness of Breath/Dyspnea Stated complaint: blood clot right lung, soa Time Seen by Provider: 01/04/25 14:50 Mode of Arrival: Ambulatory Source of Information: Patient and Medical Record Limitations: No Limitations History of Present Illness HPI narrative: 44-year-old female presents to the emergency department for 1 week history of dyspnea, dyspnea on exertion, and orthopnea last night, worsened within the last 2 days, patient was recently seen by her PCP yesterday, noted to have elevated proBNP, elevated D-dimer, negative for URI, attempted to obtain outpatient CTA/further workup unable to obtain at this time, thus patient instructed to come to the emergency department for further evaluation. Patient states this all started after she had a fall 2 weeks ago, where she tripped and fell over her dogs , she was seen by her primary care provider and found to be more musculoskeletal in nature, has pain that is localized to her right sided ribs, worse with movement, worse with deep inspiration, does endorse a cough, denies any fever or chills, denies any abdominal pain nausea vomiting constipation diarrhea no urinary type symptomatology, she is a current everyday smoker, denies any other alcohol or drug use, patient does endorse some bilateral lower extremity swelling, no bilateral lower extremity pain. Other past medical history consistent with hyperlipidemia, currently she is on supplemental hormone therapy for menopausal type symptoms, anxiety/depression, prediabetes, hypertension, GERD, initial triage vitals unremarkable at this time. She denies any other alcohol or drug use. Onset (ago): week(s) Related Data Home Medications ?Medication ?Instructions ?Recorded ?Confirmed fluticasone propionate 50 1 spray intranasal DAILY 02/06/24 01/03/25 mcg/actuation nasal spray,suspension cholecalciferol (vitamin D3) 25 PO 09/17/24 01/03/25 mcg (1,000 unit) tablet ergocalciferol (vitamin D2) 1,250 PO 09/17/24 01/03/25 mcg (50,000 unit) capsule lisinopril 10 mg tablet 10 mg PO 12/27/24 01/03/25 Previous Rx's ?Medication ?Instructions ?Recorded blood sugar diagnostic #50 ea 12/22/23 atorvastatin 20 mg tablet See Rx Instructions .Route 10/13/24 .COMPLEX #90 tabs metoprolol succinate 25 mg See Rx Instructions .Route 10/13/24 tablet,extended release 24 hr .COMPLEX #90 tabs escitalopram oxalate 20 mg tablet See Rx Instructions .Route 11/08/24 .COMPLEX #30 tabs omeprazole 20 mg capsule,delayed See Rx Instructions .Route 12/10/24 release .COMPLEX #90 caps prochlorperazine maleate 5 mg See Rx Instructions .Route 12/15/24 tablet .COMPLEX #45 tabs cariprazine 1.5 mg capsule 1.5 mg PO HS mdd #30 caps 12/16/24 (Vraylar) lamotrigine 25 mg tablet (Lamictal) 25 mg PO DAILY #42 tabs 12/27/24 lidocaine 5 % topical patch See Rx Instructions topical 12/27/24 .COMPLEX #30 ea conjugated estrogens 0.3 mg tablet See Rx Instructions .Route 12/30/24 (Premarin) .COMPLEX #30 tabs metformin 500 mg tablet See Rx Instructions .Route 12/30/24 .COMPLEX #90 tabs amoxicillin 875 mg-potassium 1 tab PO BID 7 days #14 tabs 01/04/25 clavulanate 125 mg tablet doxycycline hyclate 100 mg capsule 100 mg PO BID 7 days #14 caps 01/04/25 Allergies Allergy/AdvReac Type Severity Reaction Status Date / Time No Known Allergies Allergy Verified 01/03/25 16:10 [facility] <ABDOULAYE Ibrahim - Last Filed: 01/04/25 17:04> [facility] Disclaimer: The information contained in this section may have been updated after the patient was seen, as this information can be updated by other users. 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 Abdominal pain Drug-induced nausea and vomiting Uncontrolled hypertension Acute chest pain Adverse reaction to drug Chest pain Gastroenteritis Attention deficit disorder (ADD) in adult Panic disorder DDD (degenerative disc disease), cervical UTI (urinary tract infection) Productive cough Bronchitis Insomnia Right wrist sprain Influenza A Social History Smoking Status: Current every day smoker tobacco type: cigarettes packs per day: 3 alcohol intake: never substance use type: denies use and marijuana current occupational status: employed Travel in the last 8 weeks: None household members: family housing: house number of children: 1 Have you lived/traveled outside [place] in past 30 days?: No Contact w/someone who lives/traveled outside [place] past 30 days?: No Exposure to someone with infectious disease in past 14 days?: No Do you have a fever (greater than 100.4 F or 38 C)?: No Have you tested positive for COVID-19: No Exposed to someone with COVID-19 in past 14 days?: No Do you have a sore throat?: No Do you have a cough?: No Do you have any weakness?: No Do you have any diarrhea?: No Are you experiencing any unusual bleeding?: No Do you have any muscle aches/pain?: No Do you have any abdominal pain?: No Are you experiencing loss of taste or smell?: No Other Medical History Have you received the Flu Vaccine for this season: No Have you received the Pneumonia Vaccine: No <ABDOULAYE Ibrahim - Last Filed: 01/04/25 17:04> ROS Obtained: Yes All systems reviewed & no additional complaints except as documented Physical Exam <ABDOULAYE Ibrahim - Last Filed: 01/04/25 17:04> General General appearance: alert and in no apparent distress Head Head exam: atraumatic and normocephalic Eye Eye exam: Present PERRL and EOMI ENT ENT exam: Present mucous membranes moist Neck Neck exam: Present normal inspection Chest Chest inspection: Present normal inspection and symmetric chest wall rise Respiratory Respiratory exam: Present wheezes and other (Mild wheeze versus Rales in the right lobe, otherwise no supracostal intercostal retractions. There is mild chest wall pain to palpation to the right); Absent respiratory distress Cardiovascular Cardiovascular exam: Present regular rate and normal rhythm Abdominal Exam Abdominal exam: Present soft; Absent tenderness, guarding, rebound or trauma Extremities Exam Extremities exam: Present normal inspection Neurological Exam Neurological exam: Present alert and oriented X3 Psychiatric Psychiatric exam: Present normal affect Skin Skin exam: Present warm, dry and other (There is mild soft tissue swelling noted about the bilateral lower extremities, no overt pedal edema/pitting edema is noted, no erythema) Medical Decision Making <ABDOULAYE Ibrahim - Last Filed: 01/04/25 17:04> Medical Records Medical records reviewed: Yes I reviewed the patient's medical records. Screening: Per USPSTF and CDC recommendations, given the prevalence of disease in our region, it is our hospital?s policy to screen for HIV and viral Hepatitis for all patients aged 18 and over and those with ongoing risk factors. Phil Inquiry Pt receiving controlled substance: No Phil was queried for this patient: No Vital Signs: 01/04/25 14:49 01/04/25 14:52 01/04/25 15:04 Temperature 98.4 F Temperature Source Oral Pulse Rate 88 94 H Pulse Rate [Left Radial] 89 Respiratory Rate 19 Blood Pressure 119/75 112/72 Blood Pressure [Right Arm] 119/75 Blood Pressure Mean [Right Arm] 89 Blood Pressure Source 02 Sat by Pulse Oximetry 98 96 97 Oxygen Delivery Method Room Air Room Air Room Air 01/04/25 15:10 01/04/25 15:30 01/04/25 15:40 Temperature Temperature Source Pulse Rate 81 85 85 Pulse Rate [Left Radial] Respiratory Rate Blood Pressure 100/65 L 103/66 L 92/63 L Blood Pressure [Right Arm] Blood Pressure Mean [Right Arm] Blood Pressure Source 02 Sat by Pulse Oximetry 94 L 95 95 Oxygen Delivery Method Room Air Room Air 01/04/25 15:50 01/04/25 16:00 01/04/25 16:10 Temperature Temperature Source Pulse Rate 85 85 84 Pulse Rate [Left Radial] Respiratory Rate Blood Pressure 97/63 L 101/69 L 96/70 L Blood Pressure [Right Arm] Blood Pressure Mean [Right Arm] Blood Pressure Source 02 Sat by Pulse Oximetry 93 L 95 93 L Oxygen Delivery Method Room Air 01/04/25 16:20 01/04/25 16:30 01/04/25 16:40 Temperature Temperature Source Pulse Rate 80 80 78 Pulse Rate [Left Radial] Respiratory Rate Blood Pressure 101/65 L 99/66 L 94/69 L Blood Pressure [Right Arm] Blood Pressure Mean [Right Arm] Blood Pressure Source 02 Sat by Pulse Oximetry 93 L 94 L 94 L Oxygen Delivery Method Room Air 01/04/25 16:50 01/04/25 17:05 Temperature 98.4 F Temperature Source Oral Pulse Rate 77 Pulse Rate [Left Radial] Respiratory Rate 20 Blood Pressure 104/46 L 105/70 L Blood Pressure [Right Arm] Blood Pressure Mean [Right Arm] Blood Pressure Source Automatic Cuff 02 Sat by Pulse Oximetry 94 L Oxygen Delivery Method Room Air Room Air Lab Data Lab results reviewed: Yes I reviewed the patient's lab results. Lab Results 01/04/25 14:55: WBC 5.4 D, RBC 3.74 L, Hgb 11.5 L, Hct 35.1 L, MCV 93.9, MCH 30.7, MCHC 32.8, RDW 12.4, Plt Count 273, MPV 9.1, Neut % (Auto) 49.4, Lymph % (Auto) 36.7, [place] % (Auto) 5.9, Eos % (Auto) 6.9, Baso % (Auto) 0.7, Neut # (Auto) 2.7, Lymph # (Auto) 2.0, [place] # (Auto) 0.3, Eos # (Auto) 0.4, Baso # (Auto) 0.0, PT 10.3, INR 0.91, Sodium 140, Potassium 4.1, Chloride 108 H, Carbon Dioxide 31 H, Anion Gap 5.1, BUN 12, Creatinine 0.60, Estimated Creat Clear 143, Estimated GFR 108, Est GFR ( Amer) 130, Glucose 108 H, Calcium 9.0, Magnesium 2.0, Total Bilirubin 0.3, AST 30, ALT 24, Alkaline Phosphatase 73, Troponin I < 0.01, NT-Pro-B Natriuret Pep 1100 H, Total Protein 6.8, Albumin 3.8, Globulin 3.0, Albumin/Globulin Ratio 1.3, Lipase 39, HCV Ab PRERNA w/Rflx PCR Qn Negative 01/04/25 14:55 01/04/25 14:55 Orders (Tests/Meds): ED MEDICATIONS Discontinued Medications Generic Name Dose Route Start Last Admin Trade Name Freq PRN Reason Stop Dose Admin Iopamidol 70 ml 01/04/25 15:30 01/04/25 15:31 Iopamidol-370 (76%);100ml Bottle IV 01/04/25 15:31 70 ml ONCE ONE Administration Sodium Chloride 50 ml 01/04/25 15:30 01/04/25 15:31 0.9 % Sodium Chloride 50 Ml Vial IV 01/04/25 15:31 50 ml ONCE ONE Administration Sodium Chloride 10 ml 01/04/25 15:30 01/04/25 15:31 Sodium Chloride 0.9% 10ml Syr (Rad Only) IV 01/04/25 15:31 10 ml ONCE ONE Administration ORDERS Category Date Time Status CTA Chest [CT angio chest PE protocol] Stat Cat Scan 01/04/25 14:57 Completed XR chest portable Stat Exams 01/04/25 14:51 Completed Complete Blood Count Auto Diff Stat Lab 01/04/25 14:55 Completed Comprehensive Metabolic Panel Stat Lab 01/04/25 14:55 Completed HIV Combo Stat Lab 01/04/25 14:55 Received Hepatitis C Ab Qual. W/ RFX Stat Lab 01/04/25 14:55 Completed Lipase Stat Lab 01/04/25 14:55 Completed Magnesium Stat Lab 01/04/25 14:55 Completed NT Pro Brain Natriuretic Pep. Stat Lab 01/04/25 14:55 Completed PT INR [Prothrombin Time INR] Stat Lab 01/04/25 14:55 Completed Troponin I Stat Lab 01/04/25 14:55 Completed Medical Decision Narrative: 44-year-old female presents the emergency department at the request of her primary care provider for a 1 week history of shortness of air, right-sided chest pain/rib pain, and some orthopnea, differential diagnose include but limited to PE, acute/new onset CHF, COPD exacerbation, pneumothorax, pneumonia, acute URI, acute bronchitis, cardiac arrhythmia, electro disturbance, ACS, among others. Discussed patient case with impression as well as Dr. Buckley Will obtain basic laboratory studies lipase magnesium level proBNP PT/INR, troponin, chest x-ray and CTA chest without contrast PE protocol. CBC is notable for erythrocytepena at 3.74, hemoglobin is decreased 11.5 hematocrit is decreased at 35.1 PT/INR within normal limits Troponin within normal limits, however proBNP is elevated at 1100, lipase within normal limits I reviewed the patient's chest x-ray along the corresponding radiologic report, subtle airspace opacity particularly in left midlung, that may represent pneumonia I reviewed the patient's CTA chest without contrast PE protocol, no pulmonary embolus or dissection, new patchy groundglass opacities present bilaterally probably acute infectious pneumonitis. Examination of the patient at 4:45 PM, patient has not had any tachycardia or hypoxia here in the emergency department, discussed all results with the patient at bedside, will treat patient with dual antibiotic coverage for community- acquired pneumonia with Augmentin and doxycycline, patient will take these medications prescribed. Strict ED return precautions given to the patient bedside patient voiced understanding of current plan/discharge plan. Lower extremity swelling is bilateral and symmetric, no pain, pitting edema, more dependent edema/lymphedema in the setting of acute phase, less likely for DVT at this time. Patient voiced understanding of current treatment/discharge plan will follow-up with PCP as directed. <Alvaro Buckley MD - Last Filed: 01/04/25 19:56> Vital Signs: 01/04/25 14:49 01/04/25 14:52 01/04/25 15:04 Temperature 98.4 F Temperature Source Oral Pulse Rate 88 94 H Pulse Rate [Left Radial] 89 Respiratory Rate 19 Blood Pressure 119/75 112/72 Blood Pressure [Right Arm] 119/75 Blood Pressure Mean [Right Arm] 89 Blood Pressure Source 02 Sat by Pulse Oximetry 98 96 97 Oxygen Delivery Method Room Air Room Air Room Air 01/04/25 15:10 01/04/25 15:30 01/04/25 15:40 Temperature Temperature Source Pulse Rate 81 85 85 Pulse Rate [Left Radial] Respiratory Rate Blood Pressure 100/65 L 103/66 L 92/63 L Blood Pressure [Right Arm] Blood Pressure Mean [Right Arm] Blood Pressure Source 02 Sat by Pulse Oximetry 94 L 95 95 Oxygen Delivery Method Room Air Room Air 01/04/25 15:50 01/04/25 16:00 01/04/25 16:10 Temperature Temperature Source Pulse Rate 85 85 84 Pulse Rate [Left Radial] Respiratory Rate Blood Pressure 97/63 L 101/69 L 96/70 L Blood Pressure [Right Arm] Blood Pressure Mean [Right Arm] Blood Pressure Source 02 Sat by Pulse Oximetry 93 L 95 93 L Oxygen Delivery Method Room Air 01/04/25 16:20 01/04/25 16:30 01/04/25 16:40 Temperature Temperature Source Pulse Rate 80 80 78 Pulse Rate [Left Radial] Respiratory Rate Blood Pressure 101/65 L 99/66 L 94/69 L Blood Pressure [Right Arm] Blood Pressure Mean [Right Arm] Blood Pressure Source 02 Sat by Pulse Oximetry 93 L 94 L 94 L Oxygen Delivery Method Room Air 01/04/25 16:50 01/04/25 17:05 Temperature 98.4 F Temperature Source Oral Pulse Rate 77 Pulse Rate [Left Radial] Respiratory Rate 20 Blood Pressure 104/46 L 105/70 L Blood Pressure [Right Arm] Blood Pressure Mean [Right Arm] Blood Pressure Source Automatic Cuff 02 Sat by Pulse Oximetry 94 L Oxygen Delivery Method Room Air Room Air Lab Data Lab Results 01/04/25 14:55: WBC 5.4 D, RBC 3.74 L, Hgb 11.5 L, Hct 35.1 L, MCV 93.9, MCH 30.7, MCHC 32.8, RDW 12.4, Plt Count 273, MPV 9.1, Neut % (Auto) 49.4, Lymph % (Auto) 36.7, [place] % (Auto) 5.9, Eos % (Auto) 6.9, Baso % (Auto) 0.7, Neut # (Auto) 2.7, Lymph # (Auto) 2.0, [place] # (Auto) 0.3, Eos # (Auto) 0.4, Baso # (Auto) 0.0, PT 10.3, INR 0.91, Sodium 140, Potassium 4.1, Chloride 108 H, Carbon Dioxide 31 H, Anion Gap 5.1, BUN 12, Creatinine 0.60, Estimated Creat Clear 143, Estimated GFR 108, Est GFR ( Amer) 130, Glucose 108 H, Calcium 9.0, Magnesium 2.0, Total Bilirubin 0.3, AST 30, ALT 24, Alkaline Phosphatase 73, Troponin I < 0.01, NT-Pro-B Natriuret Pep 1100 H, Total Protein 6.8, Albumin 3.8, Globulin 3.0, Albumin/Globulin Ratio 1.3, Lipase 39, HCV Ab PRERNA w/Rflx PCR Qn Negative Orders (Tests/Meds): ED MEDICATIONS Discontinued Medications Generic Name Dose Route Start Last Admin Trade Name Freq PRN Reason Stop Dose Admin Iopamidol 70 ml 01/04/25 15:30 01/04/25 15:31 Iopamidol-370 (76%);100ml Bottle IV 01/04/25 15:31 70 ml ONCE ONE Administration Sodium Chloride 50 ml 01/04/25 15:30 01/04/25 15:31 0.9 % Sodium Chloride 50 Ml Vial IV 01/04/25 15:31 50 ml ONCE ONE Administration Sodium Chloride 10 ml 01/04/25 15:30 01/04/25 15:31 Sodium Chloride 0.9% 10ml Syr (Rad Only) IV 01/04/25 15:31 10 ml ONCE ONE Administration ORDERS Category Date Time Status CTA Chest [CT angio chest PE protocol] Stat Cat Scan 01/04/25 14:57 Completed XR chest portable Stat Exams 01/04/25 14:51 Completed Complete Blood Count Auto Diff Stat Lab 01/04/25 14:55 Completed Comprehensive Metabolic Panel Stat Lab 01/04/25 14:55 Completed HIV Combo Stat Lab 01/04/25 14:55 Received Hepatitis C Ab Qual. W/ RFX Stat Lab 01/04/25 14:55 Completed Lipase Stat Lab 01/04/25 14:55 Completed Magnesium Stat Lab 01/04/25 14:55 Completed NT Pro Brain Natriuretic Pep. Stat Lab 01/04/25 14:55 Completed PT INR [Prothrombin Time INR] Stat Lab 01/04/25 14:55 Completed Troponin I Stat Lab 01/04/25 14:55 Completed ECG Data Tracing #1: Independently interpreted by me rate is 84, rhythm is regular, axis is normal, no ST elevation in anatomical contiguous leads, QTc 432 Medical Decision Narrative: 44-year-old female presents the emergency department at the request of her primary care provider for a 1 week history of shortness of air, right-sided chest pain/rib pain, and some orthopnea, differential diagnose include but limited to PE, acute/new onset CHF, COPD exacerbation, pneumothorax, pneumonia, acute URI, acute bronchitis, cardiac arrhythmia, electro disturbance, ACS, among others. Discussed patient case with impression as well as Dr. Buckley Will obtain basic laboratory studies lipase magnesium level proBNP PT/INR, troponin, chest x-ray and CTA chest without contrast PE protocol. CBC is notable for erythrocytepena at 3.74, hemoglobin is decreased 11.5 hematocrit is decreased at 35.1 PT/INR within normal limits Troponin within normal limits, however proBNP is elevated at 1100, lipase within normal limits I reviewed the patient's chest x-ray along the corresponding radiologic report, subtle airspace opacity particularly in left midlung, that may represent pneumonia I reviewed the patient's CTA chest without contrast PE protocol, no pulmonary embolus or dissection, new patchy groundglass opacities present bilaterally probably acute infectious pneumonitis. Examination of the patient at 4:45 PM, patient has not had any tachycardia or hypoxia here in the emergency department, discussed all results with the patient at bedside, will treat patient with dual antibiotic coverage for community- acquired pneumonia with Augmentin and doxycycline, patient will take these medications prescribed. Strict ED return precautions given to the patient bedside patient voiced understanding of current plan/discharge plan. Lower extremity swelling is bilateral and symmetric, no pain, pitting edema, more dependent edema/lymphedema in the setting of acute phase, less likely for DVT at this time. Patient voiced understanding of current treatment/discharge plan will follow-up with PCP as directed. I was consulted by the EVELINA, and we discussed the complexity of the problems being addressed. I approved the treatment and management plan for this patient's care in the emergency department, thus performing a substantive portion of the medical decision making. Alvaro Buckley MD Critical Care <ABDOULAYE Ibrahim - Last Filed: 01/04/25 17:04> Critical Care Time Critical Care Time: No
[2025-01-04 15:03] LABS: Basophils % 0.7 % (0.1-2.0); Eosinophils # 0.4 Kmm3 (0.0-0.4); Eosinophils % 6.9 % (0.1-12.0); Hematocrit 35.1 % (37.0-47.0); Hemoglobin 11.5 g/dL (12.2-16.2); Lymphocytes % 36.7 % (10-50); Mean Corpuscular HGB Conc 32.8 g/dL (31.8-35.4); Mean Corpuscular Hemoglobin 30.7 pg (27.0-31.2); Mean Corpuscular Volume 93.9 fl (81-99); Mean Platelet Volume 9.1 fl (7.4-10.4); Monocytes # 0.3 K/mm3 (0.1-1.0); Monocytes % 5.9 % (1.7-9.3); Neutrophils # 2.7 K/mm3 (1.8-7.8); Neutrophils % 49.4 % (37.0-80.0); Nucleated Red Blood Cells # 0 10^3/uL; Nucleated Red Blood Cells % 0 %; Platelet Count 273 K/mm3 (142-424); Red Blood Count 3.74 M/mm3 (4.20-5.40); Red Cell Distribution Width 12.4 % (11.5-17.5); Red Cell Distribution Width-SD 42.6 fL; White Blood Count 5.4 K/mm3 (4.8-10.8)
--- NOTE | 2025-01-04 15:08 | ECG_ITS ---
APPROVED REPORT Exam: Resting ECG HR:84 bpm ECG Measurements Heart Rate 84 AXES KS 129 P 48 QRSd 85 QRS 33 QT 391 T 59 QTc 432 Conclusion SINUS RHYTHM NORMAL ECG Electronically signed by : LUIS ANGEL GUADARRAMA, 01/04/2025 22:20:56
[2025-01-04 15:13] LABS: INR 0.91 (0.9-1.1); Prothrombin Time 10.3 seconds (10.1-12.5)
[2025-01-04 15:16] LABS: Alanine Aminotransferase 24 U/L (12-78); Albumin Level 3.8 g/dl (3.5-5.0); Albumin/Globulin Ratio 1.3 (1.1-1.8); Alkaline Phosphatase 73 U/L (38-126); Anion Gap 5.1 mEq/L (5-15); Aspartate Amino Transferase 30 U/L (14-36); Bilirubin,Total 0.3 mg/dl (0.2-1.3); Blood Urea Nitrogen 12 mg/dl (7-17); Carbon Dioxide 31 mmol/L (22.0-30.0); Chloride 108 mmol/L (98-107); Creatinine Clearance Estimated 143 mL/min (50-200); Estimated Glomerular Filt Rate 108 ml/min (>60); GFR (African American) 130 ML/MIN (>60); Glucose 108 mg/dl (74-100); Lipase 39 U/L (23-300); Potassium 4.1 mmoL/L (3.5-5.1); Sodium 140 mmol/L (136-145); Total Protein,Serum 6.8 g/dl (6.3-8.2)
[2025-01-04 15:27] LABS: NT Pro Brain Natriuretic Pep. 1100 pg/mL (0-125)
[2025-01-04 15:30] LABS: Troponin I < 0.01 ng/ml (0.00-0.034)
[2025-01-04] MEDS: 0.9 % SODIUM CHLORIDE 50 ML VIAL IV (15:31)
[2025-01-04] MEDS: IOPAMIDOL-370 (76%);100ML BOTTLE 70 ML IV (15:31)
[2025-01-04] MEDS: SODIUM CHLORIDE 0.9% 10ML SYR (RAD ONLY) 10 ML IV (15:31)
[2025-01-04 16:48] LABS: Hepatitis C Ab Qual. W/ RFX NEGATIVE (Negative)
[2025-01-06 11:01] LABS: HIV Combo NEGATIVE (Negative)
== END 2025-01-04 17:14 | disposition home or self-care (01) ==
PROVIDERS: Physician Assistant; Emergency Provider Emergency Medicine; PCP Family Medicine
DX: R07.89 Other chest pain (principal); R06.02 Shortness of breath; Z11.59 Encounter for screening for other viral diseases; Z11.4 Encounter for screening for human immunodeficiency virus [HIV]
CPT/HCPCS: 71045; 71275; 80053; 83690; 83735; 83880; 84484; 85025; 85610; 86803; 87389; 93005; 99285; Q9967

== ENCOUNTER 2025-04-22 12:20 | Outpatient (CLI) | payer OTHER, SELFPAY ==
--- OUTSIDE RECORDS SUMMARY | 2017-04-01 10:00 | XMS_ITS | Continuity of Care Document ---
Author Organization [facility] Address [address] [facility] [place] [address] Phone Care Team Providers Care Sanipractic Physician Name Role Phone Unavailable Unavailable Unavailable Allergies, Adverse Reactions, Alerts Substance Reaction Status Criticality Sulfa (Sulfonamide Antibiotics) Active No Information Medications Medication Instructions Dosage Effective Dates (start - stop) Status Comments Montelukast Sod 5 Mg Tab Chew CHEW TWO TABLETS BY MOUTH once DAILY IF needed FOR FOR ALLERGY reaction - Active hydroxyzine HCl 25 mg tablet take 1 Tablet by ORAL route every morning with Zantac; take 1-2 tablets in the evening with Zantac - Active Benadryl 25 mg capsule take 25mg to 50mg as directed if needed for Allergic Reaction (Step 3) - Active Claritin RediTabs 10 mg disintegrating tablet dissolve 1 tablet on tongue and swallow with 1st onset of allergic reaction (STEP 1) - Active prednisone 20 mg tablet Take 2 Tablets once if needed for Allergic Reaction- save remaining tablets (Step 4) - Active ranitidine 150 mg tablet take 1 tablet by ORAL route every 12 hours with Atarax - Active Zyrtec 10 mg tablet as directed - Active Montelukast Sod 5 Mg Tab Chew CHEW TWO TABLETS BY MOUTH once DAILY IF needed FOR FOR ALLERGY reaction - No Longer Active Procedures Procedure Date OFFICE/OUTPATIENT VISIT, EST. 7 OFFICE/OUTPATIENT VISIT, NEW Advance Directives Directive Yes / No Effective Date File Name No Information Encounters Encounter Description Practice Location Reason(s) For Visit Diagnoses Date Provider Providers Copied on Encounter [facility], [address] [facility] [place], [address], [place] tel: [phone] [facility] No Information No Information [facility], [address] [place], [address], [place] tel: [phone] [facility] No Information No Information [facility] [address] [place], [address], [place] tel: [phone] [facility] UrticariaFood allergyEncounter for allergy testing No Information Referring Provider: Jarrett English, [address] [place] [address], [address]. tel:[phone] OFFICE/OUTPAT IENT VISIT, [facility], [address] [place], [address], [place] tel: [phone] [facility] Urticaria 7 No Information Referring Provider: Jarrett English, [address] [place] [address], [address]. tel:[phone] Family History Family Member Type Diagnosis Age At Onset Family History Problem (finding) HTN, Heart Disease,fo od allergy, Payers Payer name Insurance type Covered republican ID Authoriza tion(s) No Information Social History Type Description Quantity Date Captured Comments Sex Female Smoking Status No Information Chief Complaint And Reason For Visit No Information Reason For Referral Reason For Referral No Information Plan Of Treatment Date Type Action Status Goal Td vaccine. Due on 17 due Goal PAP. Due on due Goal Mammogram. Due on due Goal Influenza vaccine. Due on due Goal Depression screening. Due on due Goal Pap/HPV testing. Due on due Goal Tdap. Due on due History Of Present Illness Encounter Date Complaint History Of Prese nt Illness No Information Functional Status Date Functional Assessmen t No Information Instructions Date Instruction Additional Infor mation No Information Assessments Type Assessment Date No Information Patient Care Teams Name Effective Dates (start - stop) Status Members No Information
--- OUTSIDE RECORDS SUMMARY | 2025-04-22 12:22 | XMS_ITS | Clinical Summary ---
Author Organization [facility] Address [address] [place] [id number] Phone [email or web address] Care Team Providers Care Astronautical Engineer Name Role Phone Little Hoyos DO Primary Care Provider [phone] Resolved Problems Problem Noted Date Diagnosed Date Resolved Date Encounter for screening, unspecified 01/28/2019 07/31/2021 Overview (05/30/2021): Encounter for immunization 07/17/2016 1 09/30/2020 Overview (05/30/2021): Nausea with vomiting, unspecified 06/05/2016 07/31/2021 Overview (05/30/2021): Immunizations Immunization Administration Dates Next Due Influenza single-dose SYRING E (Afluria, Fluarix, Fluzone, Flulaval) trivalent (CVX-140) 07/17/2016 Influenza, (Afluria Fluarix Flulaval Fluzone) quad, PF (CVX-150) 07/24/2022 Social History Tobacco Use Types Packs/Day Years Used Date Smoking Tobacco: Some Days Cigarettes Smokeless Tobacco: Never Tobacco Cessation:Ready to Q uit: Not Asked; Counseling Given: Not Answered Alcohol Use Standard Drinks/Week Comments Not Currently 0 (1 standard drink = 0.6 oz pur e alcohol) Intimate Partner Violence Answer Date R ecorded Insults You Not on file 06/03/2021 Threatens You Not on file 06/03/2021 Screams at You Not on file 06/03/2021 Physically Hurt Not on file 06/03/2021 Intimate Partner Violence Score Not on file 06/03/2021 Alcohol Use Answer Date Recorded Alcohol Use Status Not Currently 11/18/2024 Depression Answer Date Recorded PHQ Total Score 7 11/18/2024 Stress Answer Date Recorded Stress in your Life Not on file 07/20/2024 Dealing with Stress 3 07/20/2024 Comments Unknown Sex and Gender Information Value Date Recorded Sex Assigned at Not on file Legal Sex Female 2:44 PM CDT Gender Identity Not on file Sexual Orientation Not on file Last Filed Vital Signs Vital Sign Reading Time Taken Comments Blood Pressure 118/80 11/18/2024 4:58 PM EST Pulse 52 07/31/2022 1:55 PM EST Temperature 36.2 C (97.2 F) 11/18/2024 4:58 PM EST Respiratory Rate - - Oxygen Saturation - - Inhaled Oxygen Concentration - - Weight 74.9 kg (165 lb 3.2 oz) 11/18/2024 4:58 P M EST Height 154.9 cm (5' 1 ) 11/18/2024 4:58 PM EST Body Mass Index 31.21 11/18/2024 4:58 PM EST Plan of Treatment Health Maintenance Due Date Last Done Comments CT Colonography 1978 Cervical Cancer Screening Combo 1978 Colonoscopy 1978 Colorectal Cancer Screening Combo 1978 DNA Cologuard 1978 Dental Cleaning/Exam 1978 FIT or FOBT Test 1978 HIV Screening 1978 HPV / Cotest 1978 Hepatitis C Screening 1978 Pap Testing 1978 Sigmoidoscopy 1978 Annual Preventive Exam 1996 Hep B Infection Screening - Triple Screen 1996 Hepatitis B Immunization (1 of 3 - 19+ 3-dose series) 1997 Pneumococcal: Ped (0 to 5 Yrs) and At-Risk Member (6 to 64 Yrs) (1 of 2 - PCV) 1997 Tetanus Diphtheria and Pertussis Immunization (1 - Tdap) 1997 Breast Cancer Screening 2008 Covid-19 Immunization (3 - season) 2024 05/11/2021, 09/22/2020 Influenza Immunization (#1) 2025 11/0 05/2022, 05/28/2019, 06/20/2017, Additional history exists HIB Immunization Aged Out No longer e ligible based on patient's age to complete this topic HPV Immunization Aged Out No longer e ligible based on patient's age to complete this topic Hepatitis A Immunization Aged Out No longer eligible based on patient's age to complete this topic Polio Immunization Aged Out No longer eligible based on patient's age to complete this topic Insurance U[employer] NO COPAY NB Care Teams Astronautical Engineer Relationship Specialty Start Date End Date Little Hoyos DO [address] [facility] [address] [place] [address] PCP - General Family Medicine 07/20/24
[2025-04-22 12:51] LABS: Hematocrit 34.1 % (37.0-47.0); Hemoglobin 10.5 g/dL (12.2-16.2); Immature Granulocytes % 0.4 %; Mean Corpuscular HGB Conc 30.8 g/dL (31.8-35.4); Mean Corpuscular Hemoglobin 26.9 pg (27.0-31.2); Mean Corpuscular Volume 87.4 fl (81-99); Nucleated Red Blood Cells % 0 %; Platelet Count 283 K/mm3 (142-424); Red Blood Count 3.90 M/mm3 (4.20-5.40); Red Cell Distribution Width-SD 42.0 fL; White Blood Count 8.4 K/mm3 (4.8-10.8)
[2025-04-22 13:10] LABS: Iron 39 ug/dL (37-170)
[2025-04-22 13:11] LABS: Alanine Aminotransferase 16 U/L (12-78); Albumin Level 4.1 g/dl (3.5-5.0); Albumin/Globulin Ratio 2.0 (1.1-1.8); Alkaline Phosphatase 60 U/L (38-126); Anion Gap 7.4 mEq/L (5-15); Aspartate Amino Transferase 27 U/L (14-36); Blood Urea Nitrogen 12 mg/dl (7-17); Calcium 9.5 mg/dl (8.4-10.2); Carbon Dioxide 31 mmol/L (22.0-30.0); Chloride 103 mmol/L (98-107); Creatinine,Serum 0.50 mg/dl (0.52-1.04); Estimated Glomerular Filt Rate 132 ml/min (>60); GFR (African American) 160 ML/MIN (>60); Globulin 2.1 g/dL (1.3-3.2); Glucose 117 mg/dl (74-100); Potassium 4.4 mmoL/L (3.5-5.1); Sodium 137 mmol/L (136-145); Total Protein,Serum 6.2 g/dl (6.3-8.2)
[2025-04-22 13:15] LABS: Bilirubin,Total < 0.1 mg/dl (0.2-1.3)
[2025-04-22 13:19] LABS: NT Pro Brain Natriuretic Pep. 1150 pg/mL (0-125)
[2025-04-22 13:19] LABS: Total Iron Binding Capacity 412 ug/dL (265-497)
[2025-04-22 13:46] LABS: Ferritin 5.44 ng/ml (6.24-137)
== END 2025-04-22 23:59 | disposition home or self-care (01) ==
PROVIDERS: PCP Family Medicine; Visit Provider Family Medicine
DX: R00.0 Tachycardia, unspecified (principal); R79.89 Other specified abnormal findings of blood chemistry; R53.83 Other fatigue; R06.09 Other forms of dyspnea; I20.89 Other forms of angina pectoris; D50.9 Iron deficiency anemia, unspecified
CPT/HCPCS: 36415; 80053; 82728; 83540; 83550; 83880; 85025; 93270

== ENCOUNTER 2025-05-13 15:20 | Emergency (ER) | payer OTHER, SELFPAY ==
--- OUTSIDE RECORDS SUMMARY | 2017-04-01 10:00 | XMS_ITS | Continuity of Care Document ---
Author Organization [facility] Address [address] [facility] [place] [address] Phone Care Team Providers Care Tank Storage Supervisor Name Role Phone Unavailable Unavailable Unavailable Allergies, [...] Diagnoses Date Provider Providers Copied on Encounter [facility], [address] [facility] [place], [address], [place] tel: [phone] [facility] No Information No Information [facility], [address] [place], [address], [place] tel: [phone] [facility] No Information No Information [facility] [address] [place], [address], [place] tel: [phone] [facility] UrticariaFood allergyEncounter for allergy testing No Information Referring Provider: Jarrett English, [address] [place] [address], [address]. tel:[phone] OFFICE/OUTPAT IENT VISIT, [facility], [address] [place], [address], [place] tel: [phone] [facility] Urticaria 7 No Information Referring Provider: Jarrett English, [address] [place] [address], [address]. tel:[phone] Family History Family Member Type Diagnosis Age At Onset Family History Problem (finding) HTN, Heart Disease,fo od allergy, Payers Payer name Insurance type Covered alliance party ID Authoriza tion(s) No Information Social History [...]
[2025-05-13] VITALS (8 sets, daily range): BP systolic 91–135; BP diastolic 57–67; PULSE 62–79; RESP 12–17; TEMP 36.9; O2SAT 92–96; BMI 34.0
--- NOTE | 2025-05-13 15:23 | ECG_ITS ---
APPROVED REPORT Exam: Resting ECG HR:63 bpm ECG Measurements Heart Rate 63 AXES ID 131 P 61 QRSd 83 QRS 57 QT 394 T 63 QTc 402 Conclusion SINUS RHYTHM NONSPECIFIC T-WAVE ABNORMALITY BORDERLINE ECG Electronically signed by : LUIS ANGEL GUADARRAMA, 05/14/2025 00:12:45
--- OUTSIDE RECORDS SUMMARY | 2025-05-13 15:37 | XMS_ITS | Clinical Summary ---
Author Organization [facility] Address [address] [place] [id number] Phone [email or web address] Care Team Providers Care Saw Maker Name Role Phone Little Hoyos DO Primary Care Provider Resolved Problems Problem Noted Date Diagnosed Date [...] Insurance [employer] NO COPAY NB Care Teams Saw Maker Relationship Specialty Start Date End Date Little Hoyos DO [address] [facility] [address] [place] [address] PCP - General Family Medicine 07/20/24
--- NOTE | 2025-05-13 15:43 | XR_ITS ---
FINAL REPORT CLINICAL HISTORY: Nonspecific chest pain COMPARISON: 01/04/2025 FINDINGS: The heart size is normal. The mediastinum is normal. Lungs are underinflated. There is no focal infiltrate or edema. There are no pleural effusions. There is no pneumothorax. There is no osseous abnormality. IMPRESSION: Underinflated lungs. Reviewed, Interpreted and Dictated by Jad Mansfield MD Transcribed by Chelo Garay Authenticated and [facility]
[2025-05-13 15:50] LABS: Hematocrit 37.7 % (37.0-47.0); Hemoglobin 11.6 g/dL (12.2-16.2); Immature Granulocytes % 0.3 %; Mean Corpuscular HGB Conc 30.8 g/dL (31.8-35.4); Mean Corpuscular Hemoglobin 26.5 pg (27.0-31.2); Mean Corpuscular Volume 86.3 fl (81-99); Nucleated Red Blood Cells % 0 %; Platelet Count 340 K/mm3 (142-424); Red Blood Count 4.37 M/mm3 (4.20-5.40); Red Cell Distribution Width-SD 42.5 fL; White Blood Count 6.7 K/mm3 (4.8-10.8)
[2025-05-13 15:51] LABS: Albumin Level 4.3 g/dl (3.5-5.0); Chloride 106 mmol/L (98-107); Potassium 3.6 mmoL/L (3.5-5.1); Sodium 139 mmol/L (136-145)
[2025-05-13 15:53] LABS: Blood Urea Nitrogen 7 mg/dl (7-17); Creatinine Clearance Estimated 179 mL/min (50-200); Creatinine,Serum 0.50 mg/dl (0.52-1.04); Estimated Glomerular Filt Rate 132 ml/min (>60); GFR (African American) 160 ML/MIN (>60)
[2025-05-13 15:54] LABS: Alanine Aminotransferase 16 U/L (12-78); Albumin/Globulin Ratio 1.7 (1.1-1.8); Alkaline Phosphatase 57 U/L (38-126); Anion Gap 9.6 mEq/L (5-15); Aspartate Amino Transferase 30 U/L (14-36); Bilirubin,Total 0.2 mg/dl (0.2-1.3); Calcium 8.9 mg/dl (8.4-10.2); Carbon Dioxide 27 mmol/L (22.0-30.0); Globulin 2.6 g/dL (1.3-3.2); Glucose 125 mg/dl (74-100); Total Protein,Serum 6.9 g/dl (6.3-8.2)
[2025-05-13 16:06] LABS: Troponin I < 0.01 ng/ml (0.00-0.034)
--- NOTE | 2025-05-13 16:40 | ED_ITS ---
Discharge Plan Disposition Patient Disposition: Home, Self-Care Prescriptions Prescriptions: No Action Vraylar 1.5 mg capsule 1.5 mg PO HS Qty: 90 2RF mupirocin 2 % ointment 1 applic topical TID Qty: 22 0RF ergocalciferol (vitamin D2) 1,250 mcg (50,000 unit) capsule PO cholecalciferol (vitamin D3) 25 mcg (1,000 unit) tablet PO cyclobenzaprine 5 mg tablet 5 mg PO Patient Comments: TAKE 1 TABLET 3 TIMES A DAY ibuprofen 600 mg tablet 600 mg PO Patient Comments: TAKE 1 TABLET BY MOUTH EVERY 6 HOURS lidocaine 5 % adhesive patch,medicated See Rx Instructions topical .COMPLEX Qty: 30 1RF Rx Instructions: leave on most painful area for up to 12 hrs topical ropinirole 0.5 mg tablet 0.5 mg PO HS Qty: 30 2RF Rx Instructions: administer 1-3 hours before bedtime nitroglycerin 0.4 mg tablet, sublingual 0.4 mg sublingual Q5M PRN (Reason: chest pain) Qty: 14 2RF Rx Instructions: do not exceed 3 doses per episode furosemide [Lasix] 20 mg tablet 20 mg PO DAILY PRN (Reason: swelling) 14 Days Qty: 14 2RF (DME) blood sugar diagnostic Strip See Rx Instructions .Route Qty: 50 2RF Rx Instructions: As directed atorvastatin 20 mg tablet See Rx Instructions .ROUTE .COMPLEX Qty: 90 3RF Dose Instruction: TAKE ONE TABLET BY MOUTH ONCE A DAY Rx Instructions: TAKE ONE TABLET BY MOUTH ONCE A DAY metoprolol succinate 25 mg tablet extended release 24 hr See Rx Instructions .ROUTE .COMPLEX Qty: 90 3RF Dose Instruction: TAKE ONE TABLET BY MOUTH AT BEDTIME Rx Instructions: TAKE ONE TABLET BY MOUTH AT BEDTIME omeprazole 20 mg capsule,delayed release(DR/EC) See Rx Instructions .ROUTE .COMPLEX Qty: 90 1RF Dose Instruction: TAKE ONE CAPSULE BY MOUTH ONCE A DAY Rx Instructions: TAKE ONE CAPSULE BY MOUTH ONCE A DAY prochlorperazine maleate 5 mg tablet See Rx Instructions .ROUTE .COMPLEX Qty: 45 2RF Dose Instruction: TAKE ONE TABLET BY MOUTH 3 TIMES A DAY NEEDED FOR NAUSEA/VOMITING Rx Instructions: TAKE ONE TABLET BY MOUTH 3 TIMES A DAY NEEDED FOR NAUSEA/VOMITING Premarin 0.3 mg tablet See Rx Instructions .ROUTE .COMPLEX Qty: 30 4RF Dose Instruction: TAKE ONE TABLET BY MOUTH ONCE A DAY Rx Instructions: TAKE ONE TABLET BY MOUTH ONCE A DAY metformin 500 mg tablet See Rx Instructions .ROUTE .COMPLEX Qty: 90 2RF Dose Instruction: TAKE ONE TABLET BY MOUTH ONCE A DAY Rx Instructions: TAKE ONE TABLET BY MOUTH ONCE A DAY lisinopril 10 mg tablet 10 mg PO ONCE Qty: 90 1RF lamotrigine 25 mg tablet See Rx Instructions .ROUTE .COMPLEX Qty: 60 0RF Dose Instruction: TAKE 2 TABLETS BY MOUTH ONCE A DAY Rx Instructions: TAKE 2 TABLETS BY MOUTH ONCE A DAY ferrous sulfate [Feosol] 325 mg (65 mg iron) tablet 325 mg PO DAILY Qty: 30 3RF escitalopram oxalate 20 mg tablet See Rx Instructions .ROUTE .COMPLEX Qty: 30 1RF Dose Instruction: TAKE 1 TABLET BY MOUTH AT BEDTIME Rx Instructions: TAKE 1 TABLET BY MOUTH AT BEDTIME Referrals Follow up/Referrals: Candi Bueno APRN [Primary Care Provider, Family Practice] - See instructions Activity Restrictions/Add. Instructions Additional Instructions/Restrictions: At this time it was felt you are safe to be discharged home. If new or worsening symptoms please do not hesitate to return the emergency department. Please double your water pills (Lasix) over the weekend to twice daily instead of once daily and then go back to your normal dose. Please follow-up with cardiology on an outpatient basis as discussed as soon as you are able. Clinical Impressions Clinical Impression: Dyspnea Print Language Print Language: [place] Citizen Discharge ED Provider: Alvaro Buckley General Chief Complaint: Chest Pain Stated Complaint: chest pain Time Seen by Provider: 05/13/25 15:42 Mode of Arrival: Ambulatory Source of Information: Patient Description of Symptoms (Recalled from ER Triage Doc. by RN): patient states since 6am she has had intermittent left sided chest tightness with shortness of breath. is currently being evaluated for elevated BNP and is taking lasix. History of Present Illness HPI narrative: Patient is a 45-year-old female with past medical history of chronic chest tightness, dyspnea on exertion, hypertension who presents emergency department for evaluation of chest tightness. It is acute on chronic she has had chest tightness for months to years however had resurgence of this chest tightness that is nonspecific early this morning. No cough, no substernal chest pain, does not radiate through to her back. No modifying factors. Intermittent smoker. No abdominal pain. No other acute complaints at this time. Please note that above description of symptoms, in this electronic medical record under categorization of recalled from ER triage doctor by RN are reflective of an initial nursing assessment, however, is not reflective of my full history and physical exam that was personally taken and clarified. Consequentially, this preceding description of symptoms, which may include the patient's categorized chief complaint in the EMR, do not reflect my personal clinical impression, and the ultimate description of history of present illness and patient stated complaints should be deferred to this section of the note. Unless stated otherwise or congruent with this section of the note, additional signs, symptoms, or incongruence should be interpreted as inaccurate with my clinical impression. Related Data Home Medications ?Medication ?Instructions ?Recorded ?Confirmed cholecalciferol (vitamin D3) 25 PO 09/17/24 05/10/25 mcg (1,000 unit) tablet ergocalciferol (vitamin D2) 1,250 PO 09/17/24 05/10/25 mcg (50,000 unit) capsule cyclobenzaprine 5 mg tablet 5 mg PO 01/11/25 05/10/25 ibuprofen 600 mg tablet 600 mg PO 01/11/25 05/10/25 Previous Rx's ?Medication ?Instructions ?Recorded blood sugar diagnostic #50 ea 12/22/23 atorvastatin 20 mg tablet See Rx Instructions .Route 0 10/13/24 .COMPLEX #90 tabs metoprolol succinate 25 mg See Rx Instructions .Route 10/13/24 tablet,extended release 24 hr .COMPLEX #90 tabs omeprazole 20 mg capsule,delayed See Rx Instructions . Route 12/10/24 release .COMPLEX #90 caps prochlorperazine maleate 5 mg See Rx Instructions .Rou te 12/15/24 tablet .COMPLEX #45 tabs lidocaine 5 % topical patch See Rx Instructions topica l 12/27/24 .COMPLEX #30 ea conjugated estrogens 0.3 mg tablet See Rx Instructions .Route 12/30/24 (Premarin) .COMPLEX #30 tabs metformin 500 mg tablet See Rx Instructions .Route 0 12/30/24 .COMPLEX #90 tabs mupirocin 2 % topical ointment 1 applic topical TID #2 2 grams 01/11/25 lisinopril 10 mg tablet 10 mg PO ONCE #90 tabs 05/05 /25 cariprazine 1.5 mg capsule 1.5 mg PO HS mdd #90 caps 0 01/21/25 (Vraylar) lamotrigine 25 mg tablet See Rx Instructions .Route 0 04/15/25 .COMPLEX #60 tabs furosemide 20 mg tablet (Lasix) 20 mg PO DAILY PRN swe lling 14 04/22/25 days #14 tabs nitroglycerin 0.4 mg sublingual 0.4 mg sublingual Q5M PRN chest 04/22/25 tablet pain #14 tabs ropinirole 0.5 mg tablet 0.5 mg PO HS #30 tabs ferrous sulfate 325 mg (65 mg 325 mg PO DAILY #30 tabs 04/28/25 iron) tablet (Feosol) escitalopram oxalate 20 mg tablet See Rx Instructions .Route 05/05/25 .COMPLEX #30 tabs Allergies Allergy/AdvReac Type Severity Reaction Status Date / Time No Known Allergies Allergy Verified 05/10/25 10:15 [facility] Disclaimer: The information contained in this section may have been updated after the patient was seen, as this information can be updated by other users. 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 Abdominal pain Drug-induced nausea and vomiting Uncontrolled hypertension Acute chest pain Adverse reaction to drug Chest pain Gastroenteritis Attention deficit disorder (ADD) in adult Panic disorder DDD (degenerative disc disease), cervical UTI (urinary tract infection) Productive cough Bronchitis Insomnia Right wrist sprain Influenza A Social History Smoking Status: Current some day smoker tobacco type: cigarettes packs per day: 3 alcohol intake: never substance use type: denies use and marijuana current occupational status: employed Travel in the last 8 weeks?: None household members: family housing: house number of children: 1 Have you lived/traveled outside US in past 30 days?: No Contact w/someone who lives/traveled outside US past 30 days?: No Exposure to someone with infectious disease in past 14 days?: No Do you have a fever (greater than 100.4 F or 38 C)?: No Have you tested positive for COVID-19?: No Exposed to someone with COVID-19 in past 14 days?: No Do you have a sore throat?: No Do you have a cough?: No Do you have any weakness?: No Do you have any diarrhea?: No Are you experiencing any unusual bleeding?: No Do you have any muscle aches/pain?: No Do you have any abdominal pain?: No Are you experiencing loss of taste or smell?: No Other Medical History Have you received the Flu Vaccine for this season: No Have you received the Pneumonia Vaccine: No ROS Obtained: Yes Systems reviewed as appropriate & no additional complaints except as documented Physical Exam General General appearance: alert Head Head exam: atraumatic and normocephalic Eye Eye exam: Present PERRL ENT ENT exam: Present mucous membranes moist Neck Neck exam: Present normal inspection Chest Chest inspection: Present normal inspection and symmetric chest wall rise Respiratory Respiratory exam: Present normal lung sounds bilaterally; Absent respiratory distress or wheezes Cardiovascular Cardiovascular exam: Present regular rate and normal rhythm Abdominal Exam Abdominal exam: Present soft; Absent tenderness or guarding Extremities Exam Extremities exam: Present normal inspection Neurological Exam Neurological exam: Present alert Psychiatric Psychiatric exam: Present normal affect Skin Skin exam: Present warm and dry HEART Score HEART Score HEART Score assessment performed?: Yes History (anamnesis): Moderately suspicious ECG: Normal Age: 45-65 years Risk factors: 1-2 risk factors Troponin: </= normal limit HEART Score: 3 Critical Care Critical Care Time Critical Care Time: No Medical Decision Making Phil Inquiry Pt receiving controlled substance: No Vital Signs Vital Signs: 05/13/25 15:28 05/13/25 16:00 05/13/25 16:30 Temperature 98.5 F Temperature Source Oral Pulse Rate 69 67 Pulse Rate [Right Radial] 79 Respiratory Rate 15 16 13 Blood Pressure 101/61 L 93/57 L Blood Pressure [Right Arm] 135/67 Blood Pressure Mean [Right Arm] 89 Blood Pressure Source [Right Arm] Automatic Cuff Blood Pressure Position [Right Arm] Supine 02 Sat by Pulse Oximetry 95 92 L 96 Oxygen Delivery Method Room Air 05/13/25 16:56 05/13/25 17:00 05/13/25 17:30 Temperature Temperature Source Pulse Rate 64 62 69 Pulse Rate [Right Radial] Respiratory Rate 12 13 Blood Pressure 98/60 L 97/61 L 99/67 L Blood Pressure [Right Arm] Blood Pressure Mean [Right Arm] Blood Pressure Source [Right Arm] Blood Pressure Position [Right Arm] 02 Sat by Pulse Oximetry 96 95 94 L Oxygen Delivery Method 05/13/25 18:00 Temperature Temperature Source Pulse Rate 65 Pulse Rate [Right Radial] Respiratory Rate Blood Pressure 91/63 L Blood Pressure [Right Arm] Blood Pressure Mean [Right Arm] Blood Pressure Source [Right Arm] Blood Pressure Position [Right Arm] 02 Sat by Pulse Oximetry 93 L Oxygen Delivery Method Lab Data Labs: Lab Results 05/13/25 15:25: WBC 6.7, RBC 4.37, Hgb 11.6 L, Hct 37.7, MCV 86.3, MCH 26.5 L, M CHC 30.8 L, RDW 13.6, Plt Count 340, MPV 9.5, Neut % (Auto) 51.7, Lymph % (Auto) 34.2, [place] % (Auto) 7.6, Eos % (Auto) 5.3, Baso % (Auto) 0.9, Neut # (Auto) 3.5, Lymph # (Auto) 2.3, [place] # (Auto) 0.5, Eos # (Auto) 0.4, Baso # (Auto) 0.1, D- Dimer 0.35, Sodium 139, Potassium 3.6, Chloride 106, Carbon Dioxide 27, Anion Gap 9.6, BUN 7, Creatinine 0.50 L, Estimated Creat Clear 179, Estimated GFR 132, Est GFR ( Amer) 160, Glucose 125 H, Calcium 8.9, Total Bilirubin 0.2, AST 30, ALT 16, Alkaline Phosphatase 57, Troponin I < 0.01, NT-Pro-B Natriuret Pep 631 H, Total Protein 6.9, Albumin 4.3, Globulin 2.6, Albumin/Globulin Ratio 1.7 05/13/25 17:10: Troponin I < 0.01 05/13/25 17:13: Urine Color Yellow, Urine Appearance Sl cloudy, Urine pH 6.0, Ur Specific [place] <= 1.005, Urine Protein Negative, Urine Glucose (UA) Negative, Urine Ketones Negative, Urine Blood Negative, Urine Nitrate Negative, Urine Bilirubin Negative, Urine Urobilinogen 0.2, Ur Leukocyte Esterase Negative, Urine RBC None, Urine WBC Occasional, Ur Squamous Epith Cells 5-10, Urine Bacteria 1+ 05/13/25 15:25 05/13/25 15:25 Response Orders (Tests/Meds): ED MEDICATIONS Discontinued Medications Generic Name Dose Route Start Last Admin Trade Name Lyndsey PRN Reason Stop Dose Admin Aspirin 324 mg 05/13/25 16:45 05/13/25 16:54 Aspirin 81mg Chewable Tablet PO 05/13/25 16:46 324 mg ONCE ONE Administration ORDERS Category Date Time Status POCUS Point of Care (ER Only) Stat Exams 05/13/25 16:37 Completed XR chest portable Stat Exams 05/13/25 15:43 Taken BNP [NT Pro Brain Natriuretic Pep.] Stat Lab 05/13/25 15:25 Completed Complete Blood Count Auto Diff Stat Lab 05/13/25 15:25 Completed Comprehensive Metabolic Panel Stat Lab 05/13/25 15:25 Completed D-Dimer Stat Lab 05/13/25 15:25 Completed Troponin I Q3H Lab 05/13/25 17:10 Completed Troponin I Q3H Lab 05/13/25 21:45 Ordered Troponin I Stat Lab 05/13/25 15:25 Completed UA [Urinalysis and Microscopic] Stat Lab 05/13/25 17:13 Completed ECG Data Tracing #1: ECG Narrative: Independently inter by me rate is 63, rhythm is regular, axis is normal, no ST elevation in anatomical contiguous leads, QTc 402. MDM Narrative Medical Decision Narrative: In summary patient is a 45-year-old female past medical history of scrota above who presents emergency department for evaluation of acute on chronic chest tightness. Patient is hemodynamically stable nontoxic-appearing upon arrival, afebrile. Differential diagnosis includes ACS, noncardiac chest pain, heart failure, pulmonary embolism, among others. Given the patient is on conjugated estrogen patient cannot be ruled out PERC criteria, given this workup in totality will be conducted with hematologic labs chest x-ray EKG serial troponins D-dimer. Initial inventions include aspirin. It may be that patient has small degree of heart failure and needs titration of her diuretics which she was recently initiated on and is following up with cardiology. Work reviewed by me, no significant leukocytosis no transfusable anemia it is improved from prior, D-dimer excludes pulmonary embolism per years criteria, no SATISH or critical electrolyte abnormality, serial troponins undetectably low although BNP is elevated is improved in the setting of Lasix administration. Urinalysis interpreted by me and not consistent with infection. I discussed these findings with patient at bedside and we will increase her Lasix to twice is much over the weekend she will go back to her normal dose early next week and will follow-up with cardiology on outpatient basis and was given return precautions. Indication: Chest tightness Identified cardiac views: Cardiac parasternal long parasternal short axis Findings: Cardiac activity present, gross wall motion normal, no large pericardial effusion, grossly normal ejection fraction Impression: - From above Images were saved to permanent archive The study was technically adequate CPT: 44740 This study was performed by me, and I personally interpreted all images/videos. Based on my clinical judgement, these images were adequate and did not necessitate further imaging.
[2025-05-13] MEDS: ASPIRIN 81MG CHEWABLE TABLET 324 MG PO (16:54)
[2025-05-13 17:00] LABS: NT Pro Brain Natriuretic Pep. 631 pg/mL (0-125)
[2025-05-13 17:01] LABS: D-Dimer 0.35 ug/mL (0.0-0.5)
[2025-05-13 17:20] LABS: Microscopic, Urine URINE MICROSCOPIC (MICROSCOPIC)
[2025-05-13 17:24] LABS: Bilirubin,Urine Negative (Negative); Color,Urine YELLOW (Yellow); Glucose,Urine (UA) Negative (Negative); Ketones,Urine Negative (Negative); Leukocyte Esterase,Urine Negative (Negative); PH,Urine 6.0 (5.0-8.5); Protein,Urine Negative (Negative); Specific Gravity, Urine <= 1.005 (1.005-1.030); Urobilinogen,Urine 0.2 EU/dl (0.2)
[2025-05-13 17:33] LABS: Bacteria,Urine 1+ /lpf; WBC,Urine Occasional #/hpf (0-3)
[2025-05-13 17:47] LABS: Troponin I < 0.01 ng/ml (0.00-0.034)
== END 2025-05-13 18:32 | disposition home or self-care (01) ==
PROVIDERS: Emergency Provider Emergency Medicine; PCP Family Medicine
DX: R06.00 Dyspnea, unspecified (principal); R07.89 Other chest pain; I10 Essential (primary) hypertension; F17.210 Nicotine dependence, cigarettes, uncomplicated
CPT/HCPCS: 71045; 80053; 81001; 83880; 84484; 85025; 85378; 93005; 99284; 99285

== ENCOUNTER 2025-06-21 14:31 | Outpatient (CLI) | payer OTHER, SELFPAY ==
--- OUTSIDE RECORDS SUMMARY | 2017-04-01 10:00 | XMS_ITS | Continuity of Care Document ---
Author Organization [facility] Address [address] [place] [address] Phone Care Team Providers Care Ordnance Equipment Worker Name Role Phone Unavailable Unavailable Unavailable Allergies, Adverse Reactions, Alerts Substance Reaction Status Criticality Sulfa (Sulfonamide Antibiotics) Active No Information Medications Medication Instructions Dosage Dose Quantity Effective Dates (start - stop) Status Indication Fill Status Comments Montelukast Sod 5 Mg Tab Chew CHEW TWO TABLETS BY MOUTH once DAILY IF needed FOR FOR ALLERGY reaction 7 - Active hydroxyzine HCl 25 mg tablet take 1 Tablet by ORAL route every morning with Zantac; take 1-2 tablets in the evening with Zantac 7 - Active Benadryl 25 mg capsule take 25mg to 50mg as directed if needed for Allergic Reaction (Step 3) 7 - Active Claritin RediTabs 10 mg disintegrati ng tablet dissolve 1 tablet on tongue and swallow with 1st onset of allergic reaction (STEP 1) 7 - Active prednisone 20 mg tablet Take 2 Tablets once if needed for Allergic Reaction- save remaining tablets (Step 4) 7 - Active ranitidine 150 mg tablet take 1 tablet by ORAL route every 12 hours with Atarax 7 - Active Zyrtec 10 mg tablet as directed - Active Problems Condition Type Effective Dates (start - stop) Diagnosed Date Clinical Status Comments Food allergy Problem (finding) - Active (qualifier value) Hypersensitivity finding Problem (finding) - Active (qualifier value) Urticaria Problem (finding) - Active (qualifier value) Advance Directives Directive Yes / No Effective Date File Name No Information Encounters Encounter Description Practice Location Reason(s) For Visit Diagnoses Date Provider Encounter Disposition [facility], [address] [place], [address], [place] tel: [phone] [facility] No Information No Information [facility], [address] [place], [address], [place] tel: [phone] [facility] No Information No Information [facility], [address] [place], [address], [place] tel: [phone] [facility] UrticariaFood allergyEncounter for allergy testing No Information [facility], [address] [place], [address], [place] tel: [phone] [facility] Urticaria No Information Family History Family Member Type Diagnosis Age At Onset Family History Problem (finding) HTN, Heart Disease,fo od allergy, Payers Payer name Insurance type Identifiers Authorization(s) Com ments No Information Social History Type Description Quantity Date Captured Comments Sex Female Smoking Status No Information Current Gender Female (finding) Chief Complaint And Reason For Visit No Information Plan Of Treatment Date Type Action Status Goal Td vaccine. Due on 17 due Goal PAP. Due on due Goal Mammogram. Due on 7 due Goal Influenza vaccine. Due on due Goal Depression screening. Due on due Goal Pap/HPV testing. Due on due Goal Tdap. Due on due History Of Present Illness Encounter Date Complaint History Of Prese nt Illness No Information Functional Status Date Description Comments No Information Instructions Date Instruction Additional Infor mation No Information Assessments Type Assessment Date No Information
--- NOTE | 2025-06-21 | CA_ITS ---
APPROVED REPORT Exam: Pharmacologic Technologist: Carmen Mulligan Stress Nurse: Ana LOPEZ, RN Ht: 5 ft 1 in Wt: 194 lbs BSA: 1.86 m2 HR: 64 bpm BP: 112/64 mmHg Stress Test Details Test: Lexiscan HR Resting HR: 64 bpm Max Heart Rate (APMHR): 173.751654 bpm Max HR Achieved: 94 bpm Target HR (85% APMHR): 147.650734 bpm % of APMHR: 54.34 Recovery HR: 68 bpm BP Resting BP: 112.0/64.0 mmHg Max BP: 124.0/75.0 mmHg Recovery BP: 119.0/74.0 mmHg ECG Stress ECG Conclusion Symptoms: Dyspnea Arrhythmias/Ectopy: PAC ST-T Changes: Less than 0.[address] segment changes. Conclusion: Nondiagnostic ECG/Lexiscan Electronically signed by : Miranda Mike MD 06/22/2025 22:56:38
--- NOTE | 2025-06-21 12:00 | NM_ITS ---
APPROVED REPORT Exam: Nuclear Stress Test Indication: htn, hyperlipidemia, tob use, c.o., sob Patient Location: Outpatient Stress Tech: Carmen Mulligan RI Tech:Ana GouldLISA RT (R)(N)(M) Ht: 5 ft 1 in Wt: 189 lbs Bra Size: dd HR: 62 bpm BP: 112/64 mmHg BSA: 1.84 m2 TID: 1.17 BMI: 35.7 History: htn, hyperlipidemia, tob use, dyspnea Procedure: Patient received 0.4 mg of intravenous Lexiscan, resting heart rate 62 bpm, resting blood pressure 112/64 mmHg, with Lexiscan maximum heart rate achieved was 91 bpm which is % of the maximum predicted heart rate and blood pressure was 105/63 mmHg. With Lexiscan, patient denied any complaint of chest pain. Cardiac Stress and Resting SPECT Images: Cardiac Stress and Resting SPECT images were obtained using technetium 99m Myoview 29.8 mCi stress and 10.56 mCi at rest. Resting and stress images in supine and prone positions demonstrate no evidence of fixed or reversible perfusion defects. Gated imaging demonstrates normal global and regional LV systolic function. LVEF is calculated at 64%. Conclusion: N this o evidence of fixed or reversible perfusion defects. Gated imaging demonstrates normal global and regional LV systolic function. LVEF is calculated at 64%. Electronically signed by : Miranda Mike MD 06/22/2025 23:03:35
[2025-06-21] MEDS: SODIUM CHLORIDE 0.9% 10ML SYR (RAD ONLY) 10 ML IV ×2 (14:30→15:30)
--- NOTE | 2025-06-21 14:30 | CA_ITS ---
APPROVED REPORT EXAM: Comprehensive 2D, Doppler, and color-flow Echocardiogram Bench Assembler Battery: Mireya Rojo RDCS Ht: 5 ft 1 in Wt: 194lbs BSA: 1.86 BP: 142/69 mmHg Indications: CP M-Mode Dimensions RVDd 2.22 cm (0.9-2.6) LA Diam 4.16 cm (1.9-4.0) LVDd 5.06 cm (3.5-5.7) LVDs 3.52 cm (3.5-5.7) IVSd 0.65 cm (0.6-1.1) PWd 0.65 cm (0.6-1.1) EF (Teich) 57.60% EPSs 2.22 cm FS 30.40% EDV (Teich) 121.60 mL ESV (Teich) 51.60 mL LV Diastology E Decel Time 150 (160-240 msec) E/A Ratio 2.2 Mitral Valve MV E Max Jairo. 89.0 (40-130 cm/s) MV A Velocity 41.0 (40-130 cm/s) E/A Ratio 2.17 MV PHT 44.0 ms Tricuspid Valve TR P. Velocity 248.00 cm/s RAP Estimate 10.00 mmHg RVSP 34.60 mmHg Left Ventricle The left ventricle is normal size. Left ventricular systolic function is normal. The left ventricular ejection fraction is within the normal range. There is normal left ventricular wall thickness. There is normal LV segmental wall motion. The left ventricular diastolic function is normal. LVEF is 55% Right Ventricle The right ventricle is normal size. The right ventricular systolic function is normal. Atria The left atrium is mildly dilated. The right atrium is mildly dilated. There is no color Doppler evidence of interatrial shunt. Aortic Valve The aortic valve opens well. There is no hemodynamically significant aortic valvular stenosis. No aortic regurgitation is present. Mitral Valve The mitral valve is normal in structure. No evidence of mitral valve stenosis. Mild mitral regurgitation is present. Tricuspid Valve The tricuspid valve leaflets are thin and pliable. Mild tricuspid regurgitation. RVSP is 25-30 mmHg. Pulmonic Valve The pulmonary valve is grossly normal in structure. Trace pulmonic valve regurgitation is present. Great Vessels The aortic root is normal in size. IVC is normal in size and collapses >50% with inspiration. Pericardium There is no pericardial effusion. Other Information Study Quality: Fair Conclusion Normal biventricular systolic function. Biatrial dilation. Mild MR, mild TR. Electronically signed by : Miranda Mike MD 06/22/2025 22:48:00
--- OUTSIDE RECORDS SUMMARY | 2025-06-21 14:33 | XMS_ITS | Clinical Summary ---
Author Organization [facility] Address [address] [place] [id number] Phone [email or web address] Care Team Providers Care Country Printer Apprentice Name Role Phone Little Hoyos DO Primary Care Provider [phone] Resolved Problems Problem Noted Date Diagnosed Date [...] 11/18/2024 4:58 PM EST Plan of Treatment Upcoming Encounters Date Type Department Care Team (Late st Contact Info) Description 06/22/2025 12:00 PM EDT Office Visit [facility] [address] [place] [address] Francisco Genao MD [address] [place] [address] Health Maintenance Due Date Last Done Comments [...] of 3 - 19+ 3-dose series) 1997 Pneumococcal Immunization (1 of 2 - PCV) 1997 Tetanus Diphtheria and Pertussis Immunization (1 - Tdap) 1997 Breast Cancer Screening 2008 Covid-19 Immunization ( season) 2025 05/11/2021, 09/22/2020 Influenza Immunization (#1) 2025 11/0 [...] patient's age to complete this topic Insurance [facility] NO [facility] [place] Care Teams Country Printer Apprentice Relationship Specialty Start Date End Date Little Hoyos DO [address] [place] [address] PCP - General Family Medicine 07/20/24
[2025-06-21 15:30] VITALS: BP 112/64; PULSE 64; RESP 14
[2025-06-21] MEDS: ISOTOPE MYOVIEW (PER STUDY) 1 DOSE IV (15:45)
== END 2025-06-21 23:59 | disposition home or self-care (01) ==
LOC: RAD 14:31
PROVIDERS: PCP Family Medicine; Visit Provider Family Medicine
DX: I08.1 Rheumatic disorders of both mitral and tricuspid valves (principal); I11.9 Hypertensive heart disease without heart failure; I49.1 Atrial premature depolarization; R00.0 Tachycardia, unspecified; I10 Essential (primary) hypertension; I20.89 Other forms of angina pectoris; R79.89 Other specified abnormal findings of blood chemistry; E78.5 Hyperlipidemia, unspecified; R94.31 Abnormal electrocardiogram [ECG] [EKG]; Z72.0 Tobacco use
CPT/HCPCS: 78452; 93017; 93018; 93306; A9502; J2785